=== PATIENT | female | born 1955 | race Caucasian/White ===

== ENCOUNTER → 2020-06-23 11:26 | Outpatient (CLI) | payer OTHER, SELFPAY ==
--- NOTE | ~2020-06-23 | MM_ITS ---
EXAMINATION: MM screening chastity BI w rock HISTORY: Screening TECHNIQUE: Craniocaudal and mediolateral oblique 3-D tomosynthesis images were obtained and synthetic 2-D images were generated. CAD analysis was submitted and interpreted. COMPARISON: Comparison to multiple prior studies sequentially, with oldest reviewed study dated 05/2018. BREAST PARENCHYMAL COMPOSITION: There are scattered areas of fibroglandular density. FINDINGS: There is no evidence of suspicious mass, calcification, or architectural distortion to sugg est malignancy in either breast. There has been no suspicious interval change. IMPRESSION: 1. No mammographic evidence of malignancy. 2. Recommend routine screening mammography in one year. BI-RADS Category 1: Negative Reviewed, dictated and finalized at location A.
== END ==
DX: Z12.31 Encounter for screening mammogram for malignant neoplasm of breast (principal)
CPT/HCPCS: 77063; 77067

== ENCOUNTER → 2021-07-13 13:13 | Outpatient (CLI) | payer OTHER, SELFPAY ==
--- NOTE | ~2021-07-13 | MM_ITS ---
EXAMINATION: MM screening chastity BI w rock HISTORY: Screening mammogram TECHNIQUE: Craniocaudal and mediolateral oblique 3-D tomosynthesis images were obtained and synthetic 2-D images were generated. CAD analysis was submitted and interpreted. COMPARISON: 06/2020, 03/18/2019, 02/24/2018 bilateral digital screening mammogram examinations BREAST PARENCHYMAL COMPOSITION: There are scattered areas of fibroglandular density. FINDINGS: There is no evidence of suspicious mass, calcification, or architectural distortion to sugg est malignancy in either breast. There has been no suspicious interval change. IMPRESSION: 1. No mammographic evidence of malignancy. 2. Recommend routine screening mammography in one year. BI-RADS Category 1: Negative Reviewed, dictated and finalized at location A.
== END ==
PROVIDERS: PCP Physician Assistant; Visit Provider Physician Assistant
DX: Z12.31 Encounter for screening mammogram for malignant neoplasm of breast (principal)
CPT/HCPCS: 77063; 77067

== ENCOUNTER → 2021-08-31 12:11 | Outpatient (CLI) | payer OTHER, SELFPAY ==
--- NOTE | ~2021-08-31 | DEXA_ITS ---
Bone Density Report Name: Lauren Baldwin Age: 65 Sex: Female Ethnicity: White Date of : 1955 Indication: osteopenia; height loss; postmenopausal Referring Provider: Nila, Kamini Study: Bone densitometry was performed. Exam Date: August 31, 2021 Accession number: [id number] Bone Density: Region BMD T-score Z-score Classification AP Spine (L1-L4) 0.861 -1.7 0.1 Osteopenia Femoral Neck (Left) 0.674 -1.6 -0.1 Osteopenia Total Hip (Left) 0.734 -1.7 -0.5 Osteopenia Femoral Neck (Right) 0.669 -1.6 -0.1 Osteopenia Total Hip (Right) 0.745 -1.6 -0.4 Osteopenia Total Hip Mean 0.740 -1.7 -0.5 Osteopenia World Health Organization criteria for BMD impression classify patients as: Normal (T-score at or above -1.0), Osteopenia (T-score between -1.0 and -2.5), or Osteoporosis (T-score at or below -2.5). 10-year Fracture Risk(1): Major Osteoporotic Fracture 9.0% Hip Fracture 1.0% Reported Risk Factors: [place] (), Neck BMD=0.669, BMI=28.8 (1) FRAX(R) Version 3.08. Fracture probability calculated for an untreated patient. Fracture probability may be lower if the patient has received treatment. Previous Exams: Region Exam Age BMD T-score BMD Change BMD Change Date g/cm2 vs Baseline vs Previous AP Spine(L1-L4) 08/31/2021 65 0.861 -1.7 0.041* 0.041* 02/24/2018 62 0.820 -2.1 Total Hip(Left) 08/31/2021 65 0.734 -1.7 -0.008 -0.008 02/24/2018 62 0.742 -1.6 Total Hip(Right) 08/31/2021 65 0.745 -1.6 0.018 0.018 02/24/2018 62 0.728 -1.8 *Denotes significance at 95% confidence level, LSC for AP Spine = 0.022 g/cm2, LSC for Total Hip = 0.027 g/cm2 Clinical Information Provided by Patient: Has used the following medications: Vitamin D, Calcium Patient maximum height was 63.0 Menopause Age: 46 Does not regularly consume dairy products Drinks caffeinated beverages Onset of menses at age 14 Number of children 2 Impression: The patient has low bone mass, based on the Total Spine T-score. The patient has an estimated ten-year risk of hip fracture of 1% and an estimated ten-year risk of major fracture of 9%, based on the WHO FRAX algorithm. No significant bone loss was observed. Discussion: BONE DENSITY IS LOW AT ONE OR MORE SKELETAL SITES. This patient's lowest T-score is low at one or more skeletal sites. It meets the World Health Organization's (WHO) criteria for ?low
== END ==
PROVIDERS: PCP Physician Assistant; Visit Provider Physician Assistant
DX: Z78.0 Asymptomatic menopausal state (principal); M85.89 Other specified disorders of bone density and structure, multiple sites
CPT/HCPCS: 77080

== ENCOUNTER 2022-07-17 14:52 | Outpatient (CLI) | payer MEDICARE, SELFPAY ==
--- NOTE | ~2022-07-17 | MM_ITS ---
EXAMINATION: MM screening chastity BI w rock HISTORY: Screening mammogram TECHNIQUE: Craniocaudal and mediolateral oblique 3-D tomosynthesis images were obtained and synthetic 2-D images were generated. CAD analysis was submitted and interpreted. COMPARISON: 07/09/2021, 06/2020, 03/18/2019. Bilateral screening mammogram examinations BREAST PARENCHYMAL COMPOSITION: There are scattered areas of fibroglandular density. FINDINGS: There is no evidence of suspicious mass, calcification, or architectural distortion to sugg est malignancy in either breast. There has been no suspicious interval change. IMPRESSION: 1. No mammographic evidence of malignancy. 2. Recommend routine screening mammography in one year. BI-RADS Category 1: Negative Reviewed, dictated and finalized at location A.
== END 2022-07-17 14:53 | disposition home or self-care (01) ==
PROVIDERS: PCP Physician Assistant; Visit Provider Obstetrics & Gynecology
DX: Z12.31 Encounter for screening mammogram for malignant neoplasm of breast (principal)
CPT/HCPCS: 77063; 77067

== ENCOUNTER 2023-06-06 00:36 | Day surgery (SDC) | payer MEDICARE, SELFPAY ==
[2023-05-21 13:46] VITALS: BMI 27.5
[2023-06-06 06:24] VITALS: BP 146/72; PULSE 88; RESP 19; TEMP 36.2; O2SAT 98
[2023-06-06] MEDS: LACTATED RINGERS 1,000 ML 150 ML IV CONT (06:36)
--- NOTE | 2023-06-06 07:27 | WPDANESEPPF ---
Anes - Initial Pre Proc Eval Procedure: Operation Date: 06/06/23 07:30 Proposed Procedures p Colonoscopy - Matthew Gusman MD Date/Time: 06/06/23 07:27 Surgeon: Matthew Gusman MD Pre Op Diagnosis: hx colon polyps Patient Data Age: 67 Gender: F Height: 1.6 m Weight: 65.7 kg Last Vital Signs Temp 97.2 F L 06/06/23 06:24 Pulse 88 06/06/23 06:24 Resp 19 06/06/23 06:24 BP 146/72 H 06/06/23 06:24 Pulse Ox 98 06/06/23 06:24 O2 Del Method Room Air 06/06/23 06:24 Allergies Allergy/AdvReac Type Severity Reaction Status Date / Time No Known Allergies Allergy Unverified 06/06/23 06:23 Home Medications Medication Instructions Recorded Confirmed Type amlodipine 2.5 mg tablet 2.5 mg PO DAILY 08/01/22 05/21/23 History aspirin 81 mg tablet,delayed 81 mg PO DAILY 08/01/22 05/21/23 History release (Adult Aspirin Regimen) cholecalciferol (vitamin D3) 50 50 mcg PO DAILY 08/01/22 05/21/23 History mcg (2,000 unit) capsule losartan 100 mg tablet 100 mg PO DAILY 08/01/22 05/21/23 History nitroglycerin 0.4 mg sublingual 0.4 mg sublingual Q5M PRN chest 08/01/22 05/21/23 History tablet pain rosuvastatin 10 mg tablet 10 mg PO DAILY 08/01/22 05/21/23 History valacyclovir 500 mg tablet 500 mg PO DAILY PRN open sores 08/01/22 05/21/23 History vitamins A,C,E-adiz-qdwyjc 4,296 1 cap PO BID 08/01/22 05/21/23 History mcg-226 mg-90 mg capsule (PreserVision AREDS) vitamins B6-F14-G-FA 25 mg-0.5 1 tablet PO MONTHLY 08/01/22 06/06/23 History mg-100 unit-0.8 mg tablet calcium citrate 200 mg (950 mg) 600 mg PO BID 05/21/23 05/21/23 History tablet coenzyme Q10 100 mg capsule 100 mg PO DAILY 05/21/23 05/21/23 History (CoQ-10) Patient hx anesthesia problems: none Family hx anesthesia problems: none Results Review: All pre-operative results and documents have been reviewed as part of the pre-operative evaluation. [facility] Past Medical History Medical History Cardiac arrhythmia Coronary artery disease High cholesterol Hypertension Surgical History Surgical History H/O cardiac catheterization History of heart artery stent History of tubal ligation Hx of removal of ovary Previous back surgery Family History Family History Other Acute myocardial infarction Heart disease Social History Social History (Updated 08/01/22 @ 08:01 by Ariela Mack MA) Smoking status: Never smoker Alcohol intake: never Substance use: never Substance use type: does not use Living arrangements: with family Occupation/Education: retired Gender identity (if verbalized by the patient): Female Sexual Orientation (if Verbalized by the Patient): Straight or Heterosexual Spiritual care concerns: No Anes - Eval Final PreProcedure Day of Procedure 06/06/23 07:27 Patient weight: normal Heart: regular rate and rhythm Lungs: clear to auscultation Airway: Mallampati scale class II Neurological: alert and oriented Last oral intake: >/= 8 hours ASA classification: III Emergent: no Anesthetic plan: proceed Anesthesia type and monitoring: general GIVS and standard monitoring Results Review: All pre-operative results and documents have been reviewed as part of the pre-operative evaluation. Informed Consent: The patient's anesthetic plan and its attendant risks and benefits were discussed with the patient/family/POA. Questions were solicited and answers provided to the satisfaction of the patient/family/POA.
--- NOTE | 2023-06-06 07:27 | PM.HPGS ---
History of Present Illness History of Present Illness Consent: Risks, benefits, and alternatives have been discussed and questions answered. Patient agrees to proceed with procedure. Chief complaint: hx colon polyps Narrative: Lauren Baldwin is a 67 year old female with colon polyp 5 years ago Review of Systems Constitutional: Constitutional: Denies headache(s) and Denies weakness Eyes: Eyes: Denies blurry vision ENT: Reports Normal hearing present, Denies headache(s) and Denies neck pain Cardiovascular: Cardiovascular: Denies chest pain and Denies dyspnea Respiratory: Respiratory: Denies dyspnea Gastrointestinal: Gastrointestinal: Reports no additional gastrointestinal complaints Genitourinary: Genitourinary: Denies dysuria Musculoskeletal: Musculoskeletal: Denies neck pain Integumentary/Breasts: Skin/Breast: Denies dry skin Neurologic: Reports Normal hearing present, Denies headache(s) and Denies weakness Psychiatric: Psychiatric: Denies anxiety Endocrine: Endocrine: Denies change in body appearance Hematologic/Lymphatic: Hematologic/Lymphatic: Denies easy bleeding Allergic/Immunologic: Allergic/Immunologic: Denies urticaria PMF Past Medical History Medical History (Updated 06/06/23 @ 07:28 by Matthew Gusman MD) Cardiac arrhythmia Colon polyp Coronary artery disease High cholesterol Hypertension Surgical History Surgical History H/O cardiac catheterization History of heart artery stent History of tubal ligation Hx of removal of ovary Previous back surgery Family History Family History Other Acute myocardial infarction Heart disease Social History Social History (Updated 08/01/22 @ 08:01 by Ariela Mack MA) Smoking status: Never smoker Alcohol intake: never Substance use: never Substance use type: does not use Living arrangements: with family Occupation/Education: retired Gender identity (if verbalized by the patient): Female Sexual Orientation (if Verbalized by the Patient): Straight or Heterosexual Spiritual care concerns: No Meds Home Medications and Allergies Home Medications Medication Instructions Recorded Confirmed Type amlodipine 2.5 mg tablet 2.5 mg PO DAILY 08/01/22 05/21/23 History aspirin 81 mg tablet,delayed 81 mg PO DAILY 08/01/22 05/21/23 History release (Adult Aspirin Regimen) cholecalciferol (vitamin D3) 50 50 mcg PO DAILY 08/01/22 05/21/23 History mcg (2,000 unit) capsule losartan 100 mg tablet 100 mg PO DAILY 08/01/22 05/21/23 History nitroglycerin 0.4 mg sublingual 0.4 mg sublingual Q5M PRN chest 08/01/22 05/21/23 History tablet pain rosuvastatin 10 mg tablet 10 mg PO DAILY 08/01/22 05/21/23 History valacyclovir 500 mg tablet 500 mg PO DAILY PRN open sores 08/01/22 05/21/23 History vitamins A,C,Q-olxe-ecnblq 4,296 1 cap PO BID 08/01/22 05/21/23 History mcg-226 mg-90 mg capsule (PreserVision AREDS) vitamins B6-L16-O-QW 25 mg-0.5 1 tablet PO MONTHLY 08/01/22 06/06/23 History mg-100 unit-0.8 mg tablet calcium citrate 200 mg (950 mg) 600 mg PO BID 05/21/23 05/21/23 History tablet coenzyme Q10 100 mg capsule 100 mg PO DAILY 05/21/23 05/21/23 History (CoQ-10) Allergies Allergy/AdvReac Type Severity Reaction Status Date / Time No Known Allergies Allergy Unverified 06/06/23 06:23 Vital Signs Vital Signs - 24 hr 06/06/23 06:24 Temperature 97.2 F L Pulse Rate 88 Respiratory Rate 19 Blood Pressure 146/72 H Pulse Oximetry 98 Oxygen Delivery Room Air Exam Const: General: comfortable and no acute distress HENMT: Face/Nose/Sinus: Normal nares present Eyes: General: appearance normal, both eyes and all related structures Neck: Neck: no JVD Resp: Auscultation: clear to auscultation bilaterally Cardio: Rate: regular rate Rhythm: regular rhythm GI: Inspection: non-
[2023-06-06 07:43] VITALS: BP 122/74; PULSE 77; RESP 16; O2SAT 98
[2023-06-06 07:53] VITALS: BP 121/72; PULSE 85; RESP 18; O2SAT 98
[2023-06-06 08:03] VITALS: BP 127/75; PULSE 80; RESP 18; O2SAT 98
== END 2023-06-06 08:10 | disposition home or self-care (01) ==
PROVIDERS: PCP Physician Assistant; Visit Provider Internal Medicine Gastroenterology
PROC: 0DJD8ZZ Inspection of Lower Intestinal Tract, Via Natural or Artificial Opening Endoscopic (ICD-10-PCS; CPT 45378; principal; 2023-06-06 07:30)
DX: Z12.11 Encounter for screening for malignant neoplasm of colon (principal); K64.8 Other hemorrhoids; Z86.010 Personal history of colon polyps; I25.10 Atherosclerotic heart disease of native coronary artery without angina pectoris; E78.00 Pure hypercholesterolemia, unspecified; I10 Essential (primary) hypertension; Z79.82 Long term (current) use of aspirin; Z95.5 Presence of coronary angioplasty implant and graft
CPT/HCPCS: G0105; J2704; J7120

== ENCOUNTER → 2023-09-01 09:50 | Outpatient (CLI) | payer MEDICARE, SELFPAY ==
--- NOTE | ~2023-09-01 | DEXA_ITS ---
Bone Density Report Name: JACOB STAHL Age: 67 Sex: Female Ethnicity: White Date of : 1955 Indication: osteopenia; prior fracture; postmenopausal Referring Provider: SWETA, CHENTE Study: Bone densitometry was performed. Exam Date: September 01, 2023 Accession number: [id number] Bone Density: Region BMD T-score Z-score Classification AP Spine (L1-L4) 0.883 -1.5 0.4 Osteopenia Femoral Neck (Left) 0.720 -1.2 0.5 Osteopenia Total Hip (Left) 0.739 -1.7 -0.3 Osteopenia Femoral Neck (Right) 0.680 -1.5 0.1 Osteopenia Total Hip (Right) 0.734 -1.7 -0.4 Osteopenia Total Hip Mean 0.737 -1.7 -0.4 Osteopenia World Health Organization criteria for BMD impression classify patients as: Normal (T-score at or above -1.0), Osteopenia (T-score between -1.0 and -2.5), or Osteoporosis (T-score at or below -2.5). 10-year Fracture Risk(1): Major Osteoporotic Fracture 15% Hip Fracture 1.8% Reported Risk Factors: [place] (), Neck BMD=0.680, BMI=28.1, previous fracture (1) FRAX(R) Version 3.08. Fracture probability calculated for an untreated patient. Fracture probability may be lower if the patient has received treatment. Previous Exams: Region Exam Age BMD T-score BMD Change BMD Change Date g/cm2 vs Baseline vs Previous AP Spine(L1-L4) 09/01/2023 67 0.883 -1.5 0.063* 0.022 08/31/2021 65 0.861 -1.7 0.041* 0.041* 02/24/2018 62 0.820 -2.1 Total Hip(Left) 09/01/2023 67 0.739 -1.7 -0.003 0.005 08/31/2021 65 0.734 -1.7 -0.008 -0.008 02/24/2018 62 0.742 -1.6 Total Hip(Right) 09/01/2023 67 0.734 -1.7 0.007 -0.011 08/31/2021 65 0.745 -1.6 0.018 0.018 02/24/2018 62 0.728 -1.8 *Denotes significance at 95% confidence level, LSC for AP Spine = 0.022 g/cm2, LSC for Total Hip = 0.027 g/cm2 Clinical Information Provided by Patient: Has had a low trauma fracture Has used the following medications: Vitamin D, Calcium Patient maximum height was 62 Menopause Age: 46 Does not regularly consume dairy products Drinks caffeinated beverages Onset of menses at age 14 Number of children 2 Impression: The patient has low bone mass, based on the Left Total Hip T-score. The patient has an estimated ten-year risk of hip fracture of 1.8% and an estimated ten-year risk of major fracture of 15%, based on the WHO FRAX alg
--- NOTE | ~2023-09-01 | MM_ITS ---
EXAMINATION: MM screening [facility] BI w rock HISTORY: Screening mammogram TECHNIQUE: Craniocaudal and mediolateral oblique 3-D tomosynthesis images were obtained and synthetic 2-D images were generated. CAD analysis was submitted and interpreted. COMPARISON: 07/17/2022, 07/13/2021, 06/23/2020 BREAST PARENCHYMAL COMPOSITION: There are scattered areas of fibroglandular density. FINDINGS: No suspicious mass, calcification, or architectural distortion are identified in either comfort ast to suggest malignancy. There has been no suspicious interval change. IMPRESSION: 1. No mammographic evidence of malignancy. 2. Recommend routine screening mammography in one year. BI-RADS Category 1: Negative Reviewed, dictated and finalized at location A. GER ASSET
== END ==
PROVIDERS: PCP Physician Assistant; Visit Provider Physician Assistant
DX: Z12.31 Encounter for screening mammogram for malignant neoplasm of breast (principal); M85.89 Other specified disorders of bone density and structure, multiple sites
CPT/HCPCS: 77063; 77067; 77080

== ENCOUNTER 2024-03-23 09:25 | Outpatient (CLI) | payer MEDICARE, SELFPAY ==
--- NOTE | ~2024-03-23 | XR_ITS ---
Clinical Indication: Abnormal breathing PA and lateral views of the chest: Comparison: None Findings: The lungs are clear, without evidence of focal consolidation or pleural effusion. Cardiome diastinal silhouette is within normal limits. Bones and soft tissues are unremarkable. Impression: Normal chest. Reviewed, dictated and finalized at location . Impression: Normal chest.
--- NOTE | ~2024-03-23 | XR_ITS ---
EXAMINATION: XR UGI wo kub DATE: 03/23/2024 10:07 INDICATION: Indigestion. TECHNIQUE: The patient drank thick barium, gas-producing crystals, and thin barium. Fluoroscopy of th e esophagus, stomach, and proximal small bowel was performed. Fluoroscopy exposure time was 0.9 minut es. The total number of images was 285. Total dose-area product was 3.476 Gy-cm^2. COMPARISON: None. FINDINGS: There is no mass or stricture of the esophagus. Esophageal motility is normal. There is no hiatal hernia. There was no gastroesophageal reflux with provocative maneuvers. The stomach and proxi mal small bowel show normal folding patterns. IMPRESSION: 1. Normal upper gastrointestinal series. Reviewed, dictated and finalized at location A.
== END 2024-03-23 09:26 | disposition home or self-care (01) ==
PROVIDERS: PCP Physician Assistant; Visit Provider Physician Assistant
DX: K30 Functional dyspepsia (principal); R06.9 Unspecified abnormalities of breathing
CPT/HCPCS: 71046; 74240

== ENCOUNTER 2024-10-05 08:23 | Outpatient (CLI) | payer MEDICARE, SELFPAY ==
--- NOTE | ~2024-10-05 | MM_ITS ---
EXAMINATION: MM screening chastity BI w rock HISTORY: Screening TECHNIQUE: Craniocaudal and mediolateral oblique 3-D tomosynthesis images were obtained and synthetic 2-D images were generated. CAD analysis was submitted and interpreted. COMPARISON: Comparison to multiple prior studies sequentially, with oldest reviewed study dated 05/2018. BREAST PARENCHYMAL COMPOSITION: Not dense: There are scattered areas of fibroglandular density. FINDINGS: There is no evidence of suspicious mass, calcification, or architectural distortion to sugg est malignancy in either breast. There has been no suspicious interval change. IMPRESSION: 1. No mammographic evidence of malignancy. 2. Recommend routine screening mammography in one year. BI-RADS Category 1: Negative Reviewed, dictated and finalized at location B. [employer]
== END 2024-10-05 08:24 | disposition home or self-care (01) ==
LOC: ANHIMG 08:23
PROVIDERS: PCP Physician Assistant; Visit Provider Physician Assistant
DX: Z12.31 Encounter for screening mammogram for malignant neoplasm of breast (principal)
CPT/HCPCS: 77063; 77067

== ENCOUNTER 2025-10-11 07:17 | Outpatient (CLI) | payer MEDICARE, SELFPAY ==
--- NOTE | ~2025-10-11 | MM_ITS ---
EXAMINATION: MM screening chastity BI w rock HISTORY: Screening. TECHNIQUE: Craniocaudal and mediolateral oblique 3-D tomosynthesis images were obtained and synthetic 2-D images were generated. CAD analysis was submitted and interpreted. COMPARISON: 2023, 2022, and 2021. BREAST PARENCHYMAL COMPOSITION: Not Dense: There are scattered areas of fibroglandular tissue FINDINGS: No suspicious masses are seen. There are no suspicious calcifications. No unexplained architectural distortion is seen. There are no skin or nipple abnormalities identified. There is no adenopathy seen on the images submitted. IMPRESSION: No mammographic evidence to suggest malignancy is seen. The patient may return to screening mammography as per ACR guidelines. BI-RADS 1 - Negative. Reviewed, dictated and finalized at location C. NISTRATIVE TECHNICIAN
--- OUTSIDE RECORDS SUMMARY | 2025-10-11 07:21 | XMS_ITS | Continuity of Care Document ---
Author Organization [place] - [place], S[facility] [place] Address [address] [place] [address] Care Team Providers Care Fugitive Detective Name Role Phone CHENTE SOL Primary Care Provider Unavailab le Assessment Encounter Date Assessment Date Assessment LastModified by Organization Details LastModified Time 08/29/2025 08/29/2025 06/06/2023 colonoscopy showed internal hemorrhoids repeat in 5 years August of 2023 DEXA scan due 2024 eye exam : UTD dental exam: every 6 months mammogram sep 2024 iron studies normal Not available 08/29/2025 10:42:13 Plan of Treatment Reminders Order Date Submit Date Provider Last Modified By Organization Details Last Modified Time Details Appointments ANY 15 2025 09:15A M ARTI Gloria Not available Not available Not available Lab HbA1c (hemoglob in A1c), blood 2024 026 [facility], [address], [place], [address], 08/29/2025 10:39:19 CBC w/ auto diff 2024 026 [facility], [place], [address], 08/29/2025 10:39:19 hepatic function panel, serum 2024 026 [facility], [address], [place], [address], 08/29/2025 10:39:19 BMP, serum or plasma [address], [address], [place], [address], 08/29/2025 10:39:19 TSH + free T4, serum 2024 026 [facility], [address], [place], [address], 08/29/2025 10:39:19 lipid panel, serum 2024 026 [facility], [address], [place], [address], 08/29/2025 10:39:20 Referral None recorded. Procedures None recorded. Surgeries None recorded. Imaging None recorded. Medication Orders None recorded. Patient TargetsNo targets recorded. Patient InstructionsNo instructions recorded. Reason for Referral None Reported. Results Created Date Observation Date Name Description Value Unit Range Abnormal Flag Note LastModifiedBy Organization Detail LastModifiedTime 08/15/2008/16/2025 IRON, TIBC AND SHANEKA TIN PANEL iron, total 62 mcg/d L 45-160 normal Not Available [address] [address] [place], [address], 08/16/2025 07:32:56 08/15/2008/16/2025 IRON, TIBC AND SHANEKA TIN PANEL iron binding capacity 343 mcg/d L_(ca lc) 250-45 0 normal Not Available [address], [address], 08/16/2025 07:32:56 08/15/2008/16/2025 IRON, TIBC AND SHANEKA TIN PANEL % saturation 18 %_(ca lc) 16-45 normal Not Available [facility] [address] [address] [place], [address], 08/16/2025 07:32:56 08/15/2008/16/2025 IRON, TIBC AND SHANEKA TIN PANEL ferritin 37 NG/mL 16-288 normal Not Available [address], [address], 08/16/2025 07:32:56 08/15/2008/16/2025 LIPID PANEL WITH RATIO S cholesterol, total 155 mg/dL <200 normal Not Available [address], [address], 08/16/2025 07:32:56 08/15/2008/16/2025 LIPID PANEL WITH RATIO S HDL cholesterol 56 mg/dL > or = 50 normal Not Available [address], [address], 08/16/2025 07:32:56 08/15/2008/16/2025 LIPID PANEL WITH RATIO S triglyceride s 145 mg/dL <150 normal Not Available [address], [address], 08/16/2025 07:32:56 08/15/2008/16/2025 LIPID PANEL WITH RATIO S LDL-choleste rol 76 mg/dL _(jake c) normal Refer ence range : <100 Manav able range <100 mg/dL for prima ry preve ntion ; <70 mg/dL for patie nts with CHD or diabe tic patie nts with > or = 2 CHD risk facto rs. LDL-C is now calcu lated using the Linda n-Hop kins calcu morenita n, which is a valid ated novel leon schreiber than the Fried lakhwinder equat ion in the estim ation of LDL-C . Linda gallardo SS et al. ROCÍO. 2013; 310(1 9): 2061- 2068 (http ://ed ucati on.Qu estDi deannaos tics. com/f aq/FA Q164) Not Available [address], [address], 08/16/2025 07:32:56 08/15/2008/16/2025 LIPID PANEL WITH RATIO S chol/HDLC ratio 2.8 (calc ) <5.0 normal Not Available [address], [address], 08/16/2025 07:32:56 08/15/2008/16/2025 LIPID PANEL WITH RATIO S LDL/HDL ratio 1.4 (calc ) Below avera ge Risk: <2.34 Venus ge Risk: 2.35- 4.12 Moder ate Risk: 4.13- 5.56 High Risk: >5.57 Not Available [address], [address], 08/16/2025 07:32:56 08/15/2008/16/2025 LIPID PANEL WITH RATIO S non HDL cholesterol 99 mg/dL _(jake c) <130 normal For patie nts with diabe wenceslao plus 1 major ASCVD risk facto r, treat ing to a non-H DL-C goal of <100 mg/dL (LDL- C of <70 mg/dL ) is shannani janak john c optio n. Not Available [address], [address], 08/16/2025 07:32:56 08/15/2008/16/2025 BASIC METAB OLIC PANEL glucose 85 mg/dL 65-99 normal Fasti ng refer ence inter samson Not Available [address] [place], [address], 08/16/2025 07:32:57 08/15/2008/16/2025 BASIC METAB OLIC PANEL urea nitrogen (BUN) 15 mg/dL 7-25 normal Not Available [address] [place], [address], 08/16/2025 07:32:57 08/15/2008/16/2025 BASIC METAB OLIC PANEL creatinine 0.82 mg/dL 0.50-1 .05 normal Not Available [address], [address], 08/16/2025 07:32:57 08/15/2008/16/2025 BASIC METAB OLIC PANEL eGFR 78 mL/mi n/1.7 3m2 > or = 60 normal Not Available [address], [address], 08/16/2025 07:32:57 08/15/2008/16/2025 BASIC METAB OLIC PANEL BUN/creatini ne ratio SEE NOTE: (calc ) 6-22 Not Repor concha: BUN and Creat inine are withi n refer ence range . Not Available [address], [address], 08/16/2025 07:32:57 08/15/2008/16/2025 BASIC METAB OLIC PANEL sodium 137 mmol/ L 135-14 6 normal Not Available [address], [address], 08/16/2025 07:32:57 08/15/2008/16/2025 BASIC METAB OLIC PANEL potassium 4.8 mmol/ L 3.5-5. 3 normal Not Available [address], [address], 08/16/2025 07:32:57 08/15/2008/16/2025 BASIC METAB OLIC PANEL chloride 102 mmol/ L 98-110 normal Not Available [address], [address], 08/16/2025 07:32:57 08/15/2008/16/2025 BASIC METAB OLIC PANEL carbon dioxide 31 mmol/ L 20-32 normal Not Available [address], [address], 08/16/2025 07:32:57 08/15/2008/16/2025 BASIC METAB OLIC PANEL calcium 9.7 mg/dL 8.6-10 .4 normal Not Available [address], [address], 08/16/2025 07:32:57 08/15/2008/16/2025 HEPAT IC FUNCT ION PANEL protein, total 6.9 g/dL 6.1-8. 1 normal Not Available [address], [address], 08/16/2025 07:32:57 08/15/2008/16/2025 HEPAT IC FUNCT ION PANEL albumin 4.1 g/dL 3.6-5. 1 normal Not Available [address], [address], 08/16/2025 07:32:57 08/15/2008/16/2025 HEPAT IC FUNCT ION PANEL globulin 2.8 g/dL_ (calc ) 1.9-3. 7 normal Not Available [address], [address], 08/16/2025 07:32:57 08/15/2008/16/2025 HEPAT IC FUNCT ION PANEL albumin/glob ulin ratio 1.5 (calc ) 1.0-2. 5 normal Not Available [address], [address], 08/16/2025 07:32:57 08/15/2008/16/2025 HEPAT IC FUNCT ION PANEL bilirubin, total 0.4 mg/dL 0.2-1. 2 normal Not Available [address], [address], 08/16/2025 07:32:57 08/15/2008/16/2025 HEPAT IC FUNCT ION PANEL bilirubin, direct 0.1 mg/dL < or = 0.2 normal Not Available [address], [address], 08/16/2025 07:32:57 08/15/2008/16/2025 HEPAT IC FUNCT ION PANEL bilirubin, indirect 0.3 mg/dL _(jake c) 0.2-1. 2 normal Not Available [address], [address], 08/16/2025 07:32:57 08/15/2008/16/2025 HEPAT IC FUNCT ION PANEL alkaline phosphatase 94 U/L 37-153 normal Not Available [facility] [employer] [address], [address], 08/16/2025 07:32:57 08/15/2008/16/2025 HEPAT IC FUNCT ION PANEL AST 18 U/L 10-35 normal Not Available [address], [address], 08/16/2025 07:32:57 08/15/2008/16/2025 HEPAT IC FUNCT ION PANEL ALT 25 U/L 6-29 normal Not Available [address], [address], 08/16/2025 07:32:57 08/15/2008/16/2025 CBC (INCL UDES DIFF/ PLT) white blood cell count 6.3 thous and/u L 3.8-10 .8 normal Not Available [address], [address], 08/16/2025 07:32:58 08/15/2008/16/2025 CBC (INCL UDES DIFF/ PLT) red blood cell count 5.08 sampson on/uL 3.80-5 .10 normal Not Available [address], [address], 08/16/2025 07:32:58 08/15/2008/16/2025 CBC (INCL UDES DIFF/ PLT) hemoglobin 12.9 g/dL 11.7-1 5.5 normal Not Available [address], [address], 08/16/2025 07:32:58 08/15/2008/16/2025 CBC (INCL UDES DIFF/ PLT) hematocrit 42.6 % 35.0-4 5.0 normal Not Available [facility] [address], [address], 08/16/2025 07:32:58 08/15/2008/16/2025 CBC (INCL UDES DIFF/ PLT) MCV 83.9 fL 80.0-1 00.0 normal Not Available [address], [address], 08/16/2025 07:32:58 08/15/2008/16/2025 CBC (INCL UDES DIFF/ PLT) MCH 25.4 pg 27.0-3 3.0 low Not Available [address], [address], 08/16/2025 07:32:58 08/15/2008/16/2025 CBC (INCL UDES DIFF/ PLT) MCHC 30.3 g/dL 32.0-3 6.0 low For adult s, a sligh t decre ase in the calcu lated MCHC value (in the range of 30 to 32 g/dL) is most likel y not clini trish lamari marco antonio t; sophia er, it shoul d be inter prete d with cauti on in [facility] [place] with other red cell milagros eters and the patie nt's clini jake condi tion. Not Available [facility] [address], [address], 08/16/2025 07:32:58 08/15/2008/16/2025 CBC (INCL UDES DIFF/ PLT) RDW 13.4 % 11.0-1 5.0 normal Not Available [address], [address], 08/16/2025 07:32:58 08/15/2008/16/2025 CBC (INCL UDES DIFF/ PLT) platelet count 250 thous and/u L 140-40 0 normal Not Available [address], [address], 08/16/2025 07:32:58 08/15/2008/16/2025 CBC (INCL UDES DIFF/ PLT) MPV 12.1 fL 7.5-12 .5 normal Not Available [address], [address], 08/16/2025 07:32:58 08/15/2008/16/2025 CBC (INCL UDES DIFF/ PLT) absolute neutrophils 3648 cells /uL 1500-7 800 normal Not Available [address], [address], 08/16/2025 07:32:58 08/15/2008/16/2025 CBC (INCL UDES DIFF/ PLT) absolute lymphocytes 1884 cells /uL 850-39 00 normal Not Available [address], [address], 08/16/2025 07:32:58 08/15/2008/16/2025 CBC (INCL UDES DIFF/ PLT) absolute monocytes 473 cells /uL 200-95 0 normal Not Available [address], [address], 08/16/2025 07:32:58 08/15/2008/16/2025 CBC (INCL UDES DIFF/ PLT) absolute eosinophils 183 cells /uL 15-500 normal Not Available [address], [address], 08/16/2025 07:32:58 08/15/2008/16/2025 CBC (INCL UDES DIFF/ PLT) absolute basophils 113 cells /uL 0-200 normal Not Available [address], [address], 08/16/2025 07:32:58 08/15/2008/16/2025 CBC (INCL UDES DIFF/ PLT) neutrophils 57.9 % normal Not Available [facility] [address], [address], 08/16/2025 07:32:58 08/15/2008/16/2025 CBC (INCL UDES DIFF/ PLT) lymphocytes 29.9 % normal Not Available [facility] [address], [address], 08/16/2025 07:32:58 08/15/2008/16/2025 CBC (INCL UDES DIFF/ PLT) monocytes 7.5 % normal Not Available [address], [address], 08/16/2025 07:32:58 08/15/2008/16/2025 CBC (INCL UDES DIFF/ PLT) eosinophils 2.9 % normal Not Available [address], [address], 08/16/2025 07:32:58 08/15/2008/16/2025 CBC (INCL UDES DIFF/ PLT) basophils 1.8 % normal Not Available [address], [address], 08/16/2025 07:32:58 08/15/2008/16/2025 HEMOG LOBIN A1C hemoglobin A1C 6.0 %_of_ total _HGB <5.7 high For someo ne witho ut known diabe wenceslao, a hemog lobin A1c value betwe en 5.7% and 6.4% is consi stent with predi abete s and shoul d be confi rmed with a follo w-up test. For someo ne with known diabe wenceslao, a value <7% indic ates that their diabe wenceslao is well contr olled . A1c targe ts shoul d be indiv idual ized based on durat ion of diabe wenceslao, age, comor bid condi tions , and other consi derat ions. This assay resul t is consi stent with an incre ased risk of diabe wenceslao. Curre ntly, no conse nsus exist s regar ding use of hemog lobin A1c for diagn osis of diabe wenceslao for child jennifer. Not Available Phone [facility] [address] [place], [address], 08/16/2025 07:32:58 Result Notes None recorded. Problems Name Problem SNOMED Code Status Onset Date Resolution Date Notes Provider Name and Address Organization Details Recorded Time Body mass index 25-29 - overweight 813308358 Active 2023 Arlene Ventura MA [facility], [place] - SI 4 10:03:12 Benign essential hypertension 6260385 Active 2023 ARTI Gloria Attn: Daphne alexander,[address] [place], [address], [facility] SI 4 14:53:32 Coronary atherosclerosi s 220992062 Active 2023 ARTI Gloria Attn: Daphne alexander,[address] [facility], [place], [address], [facility] - SI 4 14:53:34 History of placement of stent for coronary artery disease 932541711 Active 2023 ARTI Gloria Attn: Daphne alexander,[address] [facility], [place], [address], [facility] - SI 4 14:53:36 Hyperlipidemia 96670473 Active 2023 ARTI Gloria Attn: Daphne alexander,[address] [facility], [place], [address], [place] - [facility] 4 14:53:37 Blood glucose outside reference range 635549771 Active 2023 ARTI Gloria Attn: Daphne alexander,[address] [facility], [place], [address], [place] [facility] 4 14:53:38 Overweight 214419049 Active 2023 ARTI Gloria Attn: Daphne alexander,[address] [facility], [place], [address], [place] [facility] 4 14:53:40 Long-term drug therapy Active 2023 ARTI Gloria Attn: Daphne alexander,[address] [facility], [place], [address], [place] - [facility] 4 14:53:52 Overweight in adulthood with body mass index of 25 or more but less than 30 092788282 Active 2024 ARTI Gloria Attn: Daphne alexander,[address] [facility], [place], [address], [place] - [facility] 5 23:18:12 Microcytosis 158162341 Active 2024 ARTI Gloria Attn: Charoisabel alexander,[address] [facility], [place], [address], [place] - [facility] 5 13:15:08 Prediabetes 743086617 Active 2024 ARTI Gloria Attn: Charoisabel alexander,[address] [facility], [place], [address], [place] - [facility] 5 21:52:34 Problem Notes None recorded. Procedures Surgical History Date Name Laterality Status Provider Name and Address Organization Details Recorded Time Back Surgery completed Arlene Ventura MA [facility] 02/19/2024 16:17:20 excision of bilateral fallopian tubes and ovaries completed Arlene Ventura MA [facility] 02/19/2024 16:17:40 Imaging Results None recorded. Procedure Notes None recorded. Medical Equipment None Reported. Allergies Allergen ID Allergen Name Allergen Category Reaction Reaction Severity Criticality Documentation Date Start Date Code Code System Note Provider Name and Address Organization Details Recorded Time 20300321 clarithro mycin medicatio n nausea vomiting Not available Not available Not available 08/09/2025 RxNorm React ion: Nause a, Vomit ing, Not Available jimmy - External Data Service - prod 16:59:50 Medications Name Sig Start Date Stop Date Status Note LastModified by Organization Details LastModified Time azithromyci n 250 mg tablet TAKE 2 TABLETS BY MOUTH ON DAY 1, AND THEN TAKE 1 TABLET BY MOUTH ONCE A DAY ON DAY 2 THROUGH DAY 5 02/18 completed Not Available Not Available Not Available benzonatate 200 mg capsule TAKE 1 CAPSULE BY MOUTH THREE TIMES DAILY 02/18 completed Not Available Not Available Not Available prednisone 20 mg tablet TAKE 2 TABLETS BY MOUTH ONCE DAILY FOR 5 DAYS 02/18 completed Not Available Not Available Not Available amlodipine 2.5 mg tablet TAKE 1 TABLET BY MOUTH ONCE DAILY active Not Available Not Available No t Available valacyclovi r 500 mg tablet TAKE 2 TABLETS BY MOUTH EVERY 12 HOURS NEEDED FOR 1 DAY active Not Available Not Available No t Available ciprofloxac in 500 mg tablet TAKE 1 TABLET BY MOUTH EVERY 12 HOURS 02/18 completed Not Available Not Available Not Available triamcinolo ne acetonide 0.1 % topical cream APPLY TO ITCHY SPOTS TWICE DAILY NEEDED active Not Available Not Available No t Available meclizine 25 mg tablet TAKE 1 TABLET BY MOUTH THREE TIMES DAILY NEEDED FOR VERTIGO active Not Available Not Available No t Available nitroglycer in 0.4 mg sublingual tablet DISSOLVE ONE TABLET UNDER THE TONGUE EVERY 5 MINUTES NEEDED FOR CHEST PAIN. DO NOT EXCEED A TOTAL OF 3 DOSES IN 15 MINUTES 02/18 completed Not Available Not Available Not Available codeine 10 mg-guaifene sin 100 mg/5 mL oral liquid TAKE 10 ML BY MOUTH EVERY 6 TO 8 HOURS NEEDED 02/18 completed Not Available Not Available Not Available losartan 100 mg tablet TAKE 1 TABLET BY MOUTH ONCE DAILY active Not Available Not Available No t Available metronidazo le 0.75 % topical gel APPLY TO FACE ONCE DAILY 02/18 completed Not Available Not Available Not Available doxycycline hyclate 100 mg tablet Take 1 tablet by oral route as needed for 90 days. active Not Available Not Available No t Available Asprin Ec Low Dose 81 mg tablet,ayde yed release Take 1 tablet every day by oral route. active Not Available Not Available No t Available rosuvastati n 10 mg tablet Take 1 mg every day by oral route for 90 days. active Not Available Not Available No t Available nitrofurant oin monohydrate /macrocryst als 100 mg capsule TAKE 1 CAPSULE BY MOUTH EVERY 12 HOURS 02/18 completed Not Available Not Available Not Available Vitamin D active otc Not Available Not Marta ilable Not Available Vitals Date Recorded Systolic And Diastolic Provider Name and Address Organization Details Last Updated DateTime 08/29/2025 140/80 mm[Hg] ARTI Gloria Attn: Accounting,[address] [place], [address], [facility] 08/29/2025 10:49:37 Date Recorded Body height Body mass index (BMI) Body weight Respiratory rate Oxygen saturation Heart rate Systolic And Diastolic Provider Name and Address Organization Details Last Updated DateTime 157.48 cm 27.6 kg/m2 59729.4 5 g 20 /min 98 % 78 /min 126/78 mm[Hg] Arlene Ventura MA [facility] 5 10:15:59 Social History Question Answer Notes LastModified by Organizat ion Details LastModified Time Tobacco Smoking Status Never Smoker Arlene Ventura MA null, [facility] 02/19/2024 12:46:39 Do You Have An Advance Directive? Yes Information not available 02/19/2024 Are You Blind Or Do You Have Difficulty Seeing? No Information not available 02/19/2024 What Is Your Level Of Caffeine Consumption? Occasional Information not available 02/19/2024 In The 14 Days Before Symptom Onset, Have You Had Close Contact With A Laboratory-confir med COVID-19 While That Case Was Ill? No Information not available 02/18/2024 In The 14 Days Before Symptom Onset, Have You Had Close Contact With A Person Who Is Under Investigation For COVID-19 While That Person Was Ill? No Information not available 02/18/2024 Have You Been To An Area Known To Be High Risk For COVID-19? No Information not available 02/18/2024 Are You Deaf Or Do You Have Serious Difficulty Hearing? Yes Tinnitus Information not available 02/19/2024 What Type Of Diet Are You Following? REGULAR Information not available 02/19/2024 Are There Any Guns Present In Your Home? No Information not available 02/18/2024 What Was The Date Of Your Most Recent Tobacco Screening? 08/29/2025 Information not available 08/29/2025 What Is Your Relationship Status? Information not available 02/19/2024 Do You Use Your Seat Belt Or Car Seat Routinely? Yes Information not available 02/18/2024 Do You Have Smoke And Carbon Monoxide Detectors In Your Home? No Information not available 02/18/2024 Do You Use Sunscreen Routinely? No Information not available 02/18/2024 Has Tobacco Cessation Counseling Been Provided? Yes Information not available 02/18/2024 On What Date Was Tobacco Cessation Counseling Provided? 08/29/2025 Information not available 08/29/2025 Sex: Female Functional Status Question Answer Note LastModified by Organizat ion Details LastModified Time Do you use any illicit or recreational drugs? No Information not available 02/19/2024 Do you or have you ever used any other forms of tobacco or nicotine? No Information not available 02/19/2024 What is your level of alcohol consumption? None Information not available 02/19/2024 Are you currently employed? No Information not available 02/18/2025 Are you able to care for yourself independently? Yes Information not available 02/18/2024 What is your exercise level? None Information not available 02/19/2024 Mental Status None recorded. Family History Relationship Description Onset Age of this Age Resolved Age Notes LastModified by Organization Details LastModified Time Mother Dementia [email or web address] Not availabl e 02/19/2024 16:17:52 Mother Diabetes mellitus [email or web address] Not available 2023 16:17:56 Mother Heart disease [email or web address] Not available 2023 16:18:04 Mother Hypertensive disorder [email or web address] Not available 2023 16:18:16 Father Heart disease [email or web address] Not available 2023 16:18:04 Father Hypertensive disorder tcarterma Not available 2023 16:18:16 Medical History Condition Response Coronary Artery Disease N Other N High Blood Pressure Y Atrial Fibrillation N Kidney or Bladder Problems N Thyroid Problems N GI Problems N Depression N COPD N Blood Clots N Skin Problems N Anemia N Heart Attack ([place]) N Anxiety Disorder N Diabetes N Muscle, Joint, or Bone Problems N Seizures/Epilepsy N Acid Reflux (GERD) N Cancer N Stroke N Asthma N Allergies N High Cholesterol Y Hepatitis N Liver Disease N Headaches N Heart Failure N Osteoporosis N Gynecological History Statement/Question Response Menses Monthly N Current Control Method None Obstetrics History GPAL:G 2 P 2 0 0 2 Type Value Full Term 2 Induced 0 Spontaneous 0 Premature 0 Living 2 Total 2 Immunizations Vaccine Type Date Status Note Provider Nam e and Address Organization Details Recorded Time Influenza, split virus, quadrivalent, PF 7 completed Not Available [facility] 08/29/2025 10:07:35 zoster live 7 completed Not Available [facility] 08/29/2025 10:07:35 zoster recombinant 9 completed Not Available [facility] 08/29/2025 10:07:35 zoster recombinant 0 completed Not Available [facility] 08/29/2025 10:07:35 Influenza, recombinant, quadrivalent, PF 0 completed Not Available [facility] 08/29/2025 10:07:35 COVID-19, mRNA, LNP-S, PF, 30 mcg/0.3 mL dose 1 completed Not Available [facility] 08/29/2025 10:07:35 COVID-19, mRNA, LNP-S, PF, 30 mcg/0.3 mL dose 1 completed Not Available [facility] 08/29/2025 10:07:35 Influenza, split virus, quadrivalent, PF 1 completed Not Available [facility] 08/29/2025 10:07:35 COVID-19, mRNA, LNP-S, PF, 30 mcg/0.3 mL dose 1 completed Not Available [facility] 08/29/2025 10:07:35 Influenza, high-dose, quadrivalent, PF 2 completed Not Available [facility] 08/29/2025 10:07:35 Pneumococcal conjugate PCV20, polysaccharide [id number] conjugate, adjuvant, PF 2 completed Not Available [facility] 08/29/2025 10:07:35 Influenza, high-dose, quadrivalent, PF 3 completed Not Available [facility] 08/29/2025 10:07:35 RSV, recombinant, protein subunit RSVpreF, adjuvant reconstituted, 0.5 mL, PF 3 completed Not Available [facility] 08/29/2025 10:07:35 Past Encounters Encounter ID Performer Location Encounter Start Date Encounter Closed Date Diagnosis/Indication Diagnosis SNOMED-CT Code Diagnosis ICD10 Code Diagnosis IMO Codes Diagnosis Note [id number] ARTI Gloria [facility] [address] [place] [address] 08/29/2025 10:06:29 08/29/2025 11:06:02 Benign essential hypertension 6792272 I10 stable on amlodipine 2.5mg daily and losartan 100mg daily. Coronary atherosclerosis 587179229 I25.10 stable. asymptomat ic. following with cardiology annually. Dr. Chavira at [facility]. usually late summer History of placement of stent for coronary artery disease 127739715 Z95.5 hx of stent placement. Hyperlipidemia 66387249 E78.5 lipids panel very good ranges. stable on rosuvastat in therapy. repeat fasting labs in january Long-term drug therapy 440056854 Z79.899 routine labs ordered for january 2025 Overweight in adulthood with body mass index of 25 or more but less than 30 668423146 E66.3 Z68.27 5033590245 Prediabetes 476732889 R7 3.03 347906 6%. continue dietary focus to manage carbs and sugars and exercise. Adult [facility] th examination 702147263 Z00.00 8413113 annual wellness completed Health Concerns Section Related Observation LastModified by Organization Detai ls LastModified Time None Recorded Concern Status LastModified by Organization Details LastModified Time None Recorded Payers Encounter Date Sequence Insurance Name Policy Number Policy Whitehead Covered Member ID Whitehead Member ID Guarantor Name 08/29/2025 1 [employer] (MEDICARE REPLACEMENT/ ADVANTAGE - PPO) [id number] Lauren Baldwin [id number] Lauren Baldwin Notes Date Note Type Note Provider Name and Address Organization Details Recorded Time 08/29/2025 text/html Coronary Artery Disease F/UReported by Patientpt is stable and following with cardiology. asymptomatic. HyperlipidemiaRepor concha by Patientstable on rosuvastatin 10mg daily. HypertensionReporte d by Patientstable on amlodipine 2.5mg daily and losartan 100mg daily. . Iron studies are all stable. Cholesterol panel is also in range. Basic metabolic panel normal, liver function normal CBC blood counts show just a slight drop in the MCH and MCHC. Hemoglobin A1c 6% indicating prediabetes prediabetes- pt is managing with diet and exercise. 6% on recent labs ARTI Gloria Attn: Accounting,[address], [place], [address], [facility] 09/16/2025 23:18:40 OBGyn Episode No OBEpisode recorded.
--- OUTSIDE RECORDS SUMMARY | 2025-10-11 07:21 | XMS_ITS | Clinical Summary ---
Author Organization [facility] Address [address] [place] [address] Care Team Providers Care Smocker Name Role Phone Irene Dotson Primary Care Pr ovider Allergies Active Allergy Reactions Criticality Noted Date Comments Clarithromycin Nausea only,Vomiting Reaction: Nausea, Vomiting, Medications meclizine (ANTIVERT) 25 mg tablet take 1 tablet (25MG) by oral route 3 times every day as needed 60 2 2 Active Additional Information Patient taking differently: 12.5 mg oral 3 times daily PRN, Reported on 01/15/2018 valACYclovir (VALTREX) 500 mg tablet TAKE TWO CAPLETS BY MOUTH EVERY 12 HOURS FOR 1 DAY 36 2 1 Active Additional Information Patient taking differently:500 mgoral Daily PRN, Reported on 01/13/2018 fluticasone (FLONASE) 50 mcg/actuation nasal spray spray 1 - 2 spray by Intranasal route every day in each nostril 1 Bottle 0 7 Active Additional Information Patient taking differently: 2 spray each nostril Daily PRN, Reported on 01/13/2018 calcium carbonate-vitam in D3 (CALCIUM 600 + D,3,) 1500 mg (600 mg elemental) -200 units per tablet Take according to acaa-dvi-bdnnjho package directions 0 0 9 Active Additional Information Patient taking differently: 1 tablet oral Daily, Indications: 600 mg, Reported on 01/15/2018 amLODIPine (NORVASC) 2.5 mg tablet Take 2.5 mg by mouth daily 3 9 Active vit C,U-Zd-odzth-giovanna tein-zeaxan [id number] zj-bjul-yz-mg capsule Take 1 capsule by mouth 2 (two) times a day Active Active Problems Problem Noted Date Diagnosed Date Abnormal stress test 08/06/2019 Accelerating angina 08/06/2019 Essential hypertension 08/06/2019 Family history of premature coronary artery dise ase 08/06/2019 Mitral valve prolapse 08/06/2019 History of colon polyps 12/29/2017 Overview (12/29/2017): Added automatically from request for surgery [id number] Benign hypertension 03/05/2014 Overview (01/22/2017): BENIGN HYPERTENSION Thoracic and lumbosacral neuritis 07/02/2012 Overview (01/23/2017): LUMBOSACRAL NEURITIS NOS Immunizations Immunization Administration Dates Next Due Tdap 05/01/2011 Surgical History Surgery Date Site/Laterality Comments COLONOSCOPY 10/20/2012 - 10/19/2013 POLYPECTOMY Medical History Medical History Date Comments Hx Other Medical 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 Hx Other Medical er sore throat; Comments: LNP 07/07/2014 - Hx Other Medical sharp pain in R arm area Colon polyp MVP (mitral valve prolapse) 1999 Hypertension Heart murmur Family History Medical History Relation Name Comments Coronary artery disease Father Perri nary artery disease; Heart failure Father Coronary artery disease Mother CABG ; Diabetes Mother Diabetes mellit us; cardiac arrest Sister Has defibrill ator Relation Name Status Comments Brother Alive Father (Age 80) Mother Alive Sister Alive Social History Tobacco Use Types Packs/Day Years Used Date Smoking Tobacco: Never Smokeless Tobacco: Never Alcohol Use Standard Drinks/Week Comments Not Currently 0 (1 standard drink = 0.6 oz pur e alcohol) Comments Unknown Sex and Gender Information Value Date Recorded Sex Assigned at Not on file 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 Gender Identity Not on file Sexual Orientation Not on file Last Filed Vital Signs Vital Sign Reading Time Taken Comments Blood Pressure 134/70 08/06/2019 11:24 AM CDT Pulse 77 08/06/2019 11:24 AM CDT Temperature 37.1 C (98.7 F) 01/15/2018 2:20 PM CDT Respiratory Rate 18 01/15/2018 2:20 PM CDT Oxygen Saturation 97% 08/06/2019 11:24 AM CDT Inhaled Oxygen Concentration - - Weight 70.3 kg (155 lb) 08/06/2019 11:24 AM CDT Height 160 cm (5' 3) 08/06/2019 11:24 AM CDT Body Mass Index 27.46 08/06/2019 11:24 AM CDT Plan of Treatment Not on file Insurance [employer] [facility] Advance Directives For more information, please contact: [phone] * Full Code (Latest Code Status on File) Date Activated Date Inactivated Comments 01/15/2018 11:23 AM 01/15/2018 4:42 PM Care Teams Smocker Relationship Specialty Start Date End Date Irene Dotson PA PCP - General Physician Business Systems Consultant 07/28/19
--- OUTSIDE RECORDS SUMMARY | 2025-10-11 07:22 | XMS_ITS | Data Portability ---
Author Organization [facility] [employer], Main Office Address [address] [place] [address] Assessment No assessment recorded. Plan of Treatment Reminders Order Date Submit Date Provider Last Modified By Organization Details Last Modified Time Details Appointments None recorded. Lab lipid panel, serum 2022 [employer] [facility], [address], [place], [address], 4 05:47:39 hepatic function panel, serum 2022 [employer] [facility], [address], [place], [address], 05:47:42 TSH + free T4, serum 2022 [employer] [facility], [address], [place], [address], 4 05:47:38 HbA1c (hemoglobin A1c), blood 2022 [employer] [facility], [address], [place], [address], 4 05:47:41 BMP, serum or plasma 2022 [employer] [facility], [address], [place], [address], 4 05:47:40 CBC w/ auto diff 2022 [facility], [address], [place], [address], 4 05:47:43 iron + TIBC + ferritin, serum 2022 024 [facility], [address], [place], [address], 4 05:47:36 lipid panel, serum 2022 023 [facility], [address], [place], [address], 3 02:47:15 hepatic function panel, serum 2022 023 [facility], [address], [place], [address], 3 02:47:18 TSH + free T4, serum 2022 023 [facility], [address], [place], [address], 3 02:47:14 HbA1c (hemoglobin A1c), blood 2022 023 [facility], [address], [place], [address], 3 02:47:17 BMP, serum or plasma 2022 023 [facility], [address], [place], [address], 3 02:47:16 CBC w/ auto diff 2022 023 [facility], [address], [place], [address], 3 02:47:19 iron + TIBC + ferritin, serum 2022 023 [email or web address], [address], [place], [address], 3 02:47:13 Referral None recorded. Procedures colonoscopy procedure (PROC) 2022 023 [facility] Matthew valente MD, [address], [place], [address], 3 10:53:16 Surgeries None recorded. Imaging DEXA 2022 023 [facility], [address], [place], [address], 4 14:50:05 Medication Orders codeine 10 mg-guaifene sin 100 mg/5 mL oral liquid [email or web address] [facility] [place], [address], 3 23:19:45 Zithromax Z-Jaycob 250 mg tablet 2022 023 [facility] [address] [place], [address], 3 12:59:48 prednisone 20 mg tablet 2022 023 [facility] [address] [place], [address], 3 12:59:46 Patient TargetsNo targets recorded. Patient InstructionsNo instructions recorded. Reason for Referral None Reported. Results Created Date Observation Date Name Description Value Unit Range Abnormal Flag Note LastModifiedBy Organization Detail LastModifiedTime 07/18/20 21 07/20/2021 IGP, APTIM A HPV diagnosis: commen t NEGAT WIL FOR INTRA EPITH ELIAL LESIO N OR JARON CASEY . CELLU LAR AGUILAR ES ASSOC IATED WITH ATROP HY ARE PRESE NT. Not Available [facility] [address] [place], [address], 07/21/2021 06:13:03 07/18/20 21 07/20/2021 IGP, APTIM A HPV specimen adequacy: lori olsen Satis facto ry for evalu ation . Endoc ervic al compo nent may not be disti nguis hed in cases of atrop hy. Not Available [facility] [address] [place], [address], 07/21/2021 06:13:03 07/18/20 21 07/20/2021 IGP, APTIM A HPV clinician provided ICD10: lori olsen Z01.4 19 Not Available [facility] [address] [place], [address], 07/21/2021 06:13:03 07/18/20 21 07/20/2021 IGP, APTIM A HPV performed by: Ana Cristina Briceno (ASCP ) Not Available [facility] [address] [place], [address], 07/21/2021 06:13:03 07/18/20 21 07/20/2021 IGP, APTIM A HPV . . Not Available [facility] [address] [place], [address], 07/21/2021 06:13:03 07/18/20 21 07/20/2021 IGP, APTIM A HPV note: lori olsen The Pap smear is a scree chau test desig onofre to aid in the detec tion of nimisha ligna nt and malig nant condi tions of the uteri ne cervi x. It is not a diagn ostic proce dure and shoul d not be used as the sole means of detec ting cervi jake cance r. Both false -posi tive and false -nega tive repor ts do occur . Not Available [facility] [address] [place], [address], 07/21/2021 06:13:03 07/18/20 21 07/20/2021 IGP, APTIM A HPV test methodology: commen t This liqui d based ThinP rep(R ) pap test was cyndie adhikari with the use of an image guide cesar [place] Not Available [facility] [address], [address], 07/21/2021 06:13:03 07/18/20 21 07/20/2021 IGP, APTIM A HPV HPV aptima negati ve negati ve This nucle ic acid ampli ficat ion test detec ts fourt een high- risk HPV types (16,1 8,31, 33,35 ,39,4 5,51, 52,56 ,58,5 9,66, 68) witho ut diffe renti ation . Not Available [facility] [address], [address], 07/21/2021 06:13:03 07/25/20 21 07/26/2021 URINA LYSIS ,COMP LETE( REFL) color yellow yellow normal Not Available [address], [address], 07/26/2021 07:57:10 07/25/20 21 07/26/2021 URINA LYSIS ,COMP LETE( REFL) appearance clear clear normal Not Available [address], [address], 07/26/2021 07:57:10 07/25/20 21 07/26/2021 URINA LYSIS ,COMP LETE( REFL) specific gravity 1.016 1.001- 1.035 normal Not Available [address], [address], 07/26/2021 07:57:10 07/25/20 21 07/26/2021 URINA LYSIS ,COMP LETE( REFL) pH 7.0 5.0-8. 0 normal Not Available [address], [address], 07/26/2021 07:57:10 07/25/20 21 07/26/2021 URINA LYSIS ,COMP LETE( REFL) glucose negati ve negati ve normal Not Available [address], [address], 07/26/2021 07:57:10 07/25/20 21 07/26/2021 URINA LYSIS ,COMP LETE( REFL) bilirubin negati ve negati ve normal Not Available [address], [address], 07/26/2021 07:57:10 07/25/2007/26/2021 URINA LYSIS ,COMP LETE( REFL) ketones negati ve negati ve normal Not Available [address], [address], 07/26/2021 07:57:10 07/25/20 21 07/26/2021 URINA LYSIS ,COMP LETE( REFL) occult blood negati ve negati ve normal Not Available [address], [address], 07/26/2021 07:57:10 07/25/20 21 07/26/2021 URINA LYSIS ,COMP LETE( REFL) protein negati ve negati ve normal Not Available [address], [address], 07/26/2021 07:57:10 07/25/20 21 07/26/2021 URINA LYSIS ,COMP LETE( REFL) nitrite negati ve negati ve normal Not Available [address], [address], 07/26/2021 07:57:10 07/25/20 21 07/26/2021 URINA LYSIS ,COMP LETE( REFL) leukocyte esterase negati ve negati ve normal Not Available [address], [place], [address], 07/26/2021 07:57:10 07/25/20 21 07/26/2021 URINA LYSIS ,COMP LETE( REFL) WBC 0-5 /hpf < or = 5 normal Not Available [address], [address], 07/26/2021 07:57:10 07/25/20 21 07/26/2021 URINA LYSIS ,COMP LETE( REFL) RBC 0-2 /hpf < or = 2 normal Not Available [address], [address], 07/26/2021 07:57:10 07/25/20 21 07/26/2021 URINA LYSIS ,COMP LETE( REFL) squamous epithelial cells 0-5 /hpf < or = 5 Not Available [address], [address], 07/26/2021 07:57:10 07/25/20 21 07/26/2021 URINA LYSIS ,COMP LETE( REFL) bacteria none seen /hpf none seen normal Not Available [address], [address], 07/26/2021 07:57:10 07/25/20 21 07/26/2021 URINA LYSIS ,COMP LETE( REFL) hyaline cast none seen /lpf none seen normal Not Available [address], [address], 07/26/2021 07:57:10 07/25/20 21 07/26/2021 CBC (INCL UDES DIFF/ PLT) white blood cell count 7.0 thous and/u L 3.8-10 .8 normal Not Available [address], [address], 07/26/2021 07:57:09 07/25/20 21 07/26/2021 CBC (INCL UDES DIFF/ PLT) red blood cell count 5.31 sampson on/uL 3.80-5 .10 high Not Available [address], [address], 07/26/2021 07:57:09 07/25/20 21 07/26/2021 CBC (INCL UDES DIFF/ PLT) hemoglobin 13.2 g/dL 11.7-1 5.5 normal Not Available [address], [address], 07/26/2021 07:57:09 07/25/20 21 07/26/2021 CBC (INCL UDES DIFF/ PLT) hematocrit 43.2 % 35.0-4 5.0 normal Not Available [address], [address], 07/26/2021 07:57:09 07/25/20 21 07/26/2021 CBC (INCL UDES DIFF/ PLT) MCV 81.4 fL 80.0-1 00.0 normal Not Available [address], [address], 07/26/2021 07:57:09 07/25/20 21 07/26/2021 CBC (INCL UDES DIFF/ PLT) MCH 24.9 pg 27.0-3 3.0 low Not Available [address], [address], 07/26/2021 07:57:09 07/25/20 21 07/26/2021 CBC (INCL UDES DIFF/ PLT) MCHC 30.6 g/dL 32.0-3 6.0 low Not Available [address], [address], 07/26/2021 07:57:09 07/25/20 21 07/26/2021 CBC (INCL UDES DIFF/ PLT) RDW 13.3 % 11.0-1 5.0 normal Not Available [address], [address], 07/26/2021 07:57:09 07/25/20 21 07/26/2021 CBC (INCL UDES DIFF/ PLT) platelet count 302 thous and/u L 140-40 0 normal Not Available [address], [address], 07/26/2021 07:57:09 07/25/20 21 07/26/2021 CBC (INCL UDES DIFF/ PLT) MPV 11.8 fL 7.5-12 .5 normal Not Available [address], [address], 07/26/2021 07:57:09 07/25/20 21 07/26/2021 CBC (INCL UDES DIFF/ PLT) absolute neutrophils 4158 cells /uL 1500-7 800 normal Not Available [address], [address], 07/26/2021 07:57:09 07/25/20 21 07/26/2021 CBC (INCL UDES DIFF/ PLT) absolute lymphocytes 2051 cells /uL 850-39 00 normal Not Available [address], [address], 07/26/2021 07:57:09 07/25/20 21 07/26/2021 CBC (INCL UDES DIFF/ PLT) absolute monocytes 518 cells /uL 200-95 0 normal Not Available [address], [address], 07/26/2021 07:57:09 07/25/20 21 07/26/2021 CBC (INCL UDES DIFF/ PLT) absolute eosinophils 196 cells /uL 15-500 normal Not Available [address], [address], 07/26/2021 07:57:09 07/25/20 21 07/26/2021 CBC (INCL UDES DIFF/ PLT) absolute basophils 77 cells /uL 0-200 normal Not Available [address], [address], 07/26/2021 07:57:09 07/25/20 21 07/26/2021 CBC (INCL UDES DIFF/ PLT) neutrophils 59.4 % normal Not Available [address], [address], 07/26/2021 07:57:09 07/25/20 21 07/26/2021 CBC (INCL UDES DIFF/ PLT) lymphocytes 29.3 % normal Not Available [address], [address], 07/26/2021 07:57:09 07/25/20 21 07/26/2021 CBC (INCL UDES DIFF/ PLT) monocytes 7.4 % normal Not Available [address], [address], 07/26/2021 07:57:09 07/25/20 21 07/26/2021 CBC (INCL UDES DIFF/ PLT) eosinophils 2.8 % normal Not Available [address], [address], 07/26/2021 07:57:09 07/25/20 21 07/26/2021 CBC (INCL UDES DIFF/ PLT) basophils 1.1 % normal Not Available [address], [address], 07/26/2021 07:57:09 07/25/20 21 07/26/2021 HEMOG LOBIN A1C hemoglobin A1C 5.8 %_of_ total _HGB <5.7 high Not Available [address], [address], 07/26/2021 07:57:09 07/25/20 21 07/26/2021 COMPR EHENS WIL METAB OLIC PANEL eGFR non-afr. sudanese 87 mL/mi n/1.7 3m2 > or = 60 normal Not Available [address], [address], 07/26/2021 07:57:08 07/25/20 21 07/26/2021 COMPR EHENS WIL METAB OLIC PANEL eGFR 101 mL/mi n/1.7 3m2 > or = 60 normal Not Available [address], [address], 07/26/2021 07:57:08 07/25/20 21 07/26/2021 COMPR EHENS WIL METAB OLIC PANEL BUN/creatini ne ratio not applic able (calc ) 6-22 Not Available [address], [address], 07/26/2021 07:57:08 07/25/20 21 07/26/2021 COMPR EHENS WIL METAB OLIC PANEL sodium 138 mmol/ L 135-14 6 normal Not Available [address], [address], 07/26/2021 07:57:08 07/25/20 21 07/26/2021 COMPR EHENS WIL METAB OLIC PANEL potassium 4.8 mmol/ L 3.5-5. 3 normal Not Available [address], [address], 07/26/2021 07:57:08 07/25/20 21 07/26/2021 COMPR EHENS WIL METAB OLIC PANEL chloride 100 mmol/ L 98-110 normal Not Available [address], [address], 07/26/2021 07:57:08 07/25/20 21 07/26/2021 COMPR EHENS WIL METAB OLIC PANEL carbon dioxide 31 mmol/ L 20-32 normal Not Available [address], [address], 07/26/2021 07:57:08 07/25/20 21 07/26/2021 COMPR EHENS WIL METAB OLIC PANEL calcium 9.9 mg/dL 8.6-10 .4 normal Not Available [address], [address], 07/26/2021 07:57:08 07/25/20 21 07/26/2021 COMPR EHENS WIL METAB OLIC PANEL protein, total 7.1 g/dL 6.1-8. 1 normal Not Available [address], [address], 07/26/2021 07:57:08 07/25/20 21 07/26/2021 COMPR EHENS WIL METAB OLIC PANEL albumin 4.2 g/dL 3.6-5. 1 normal Not Available [address], [address], 07/26/2021 07:57:08 07/25/20 21 07/26/2021 COMPR EHENS WIL METAB OLIC PANEL globulin 2.9 g/dL_ (calc ) 1.9-3. 7 normal Not Available [address], [address], 07/26/2021 07:57:08 07/25/20 21 07/26/2021 COMPR EHENS WIL METAB OLIC PANEL albumin/glob ulin ratio 1.4 (calc ) 1.0-2. 5 normal Not Available [address], [address], 07/26/2021 07:57:08 07/25/20 21 07/26/2021 COMPR EHENS WIL METAB OLIC PANEL bilirubin, total 0.6 mg/dL 0.2-1. 2 normal Not Available [address], [address], 07/26/2021 07:57:08 07/25/20 21 07/26/2021 COMPR EHENS WIL METAB OLIC PANEL alkaline phosphatase 95 U/L 37-153 normal Not Available [facility] [employer] [address], [address], 07/26/2021 07:57:08 07/25/20 21 07/26/2021 COMPR EHENS WIL METAB OLIC PANEL AST 26 U/L 10-35 normal Not Available [address], [address], 07/26/2021 07:57:08 07/25/20 21 07/26/2021 COMPR EHENS WIL METAB OLIC PANEL ALT 39 U/L 6-29 high Not Available [address], [address], 07/26/2021 07:57:08 07/25/20 21 07/26/2021 COMPR EHENS WIL METAB OLIC PANEL glucose 88 mg/dL 65-99 normal Fasti ng refer ence inter samson Not Available [address], [address], 07/26/2021 07:57:08 07/25/20 21 07/26/2021 COMPR EHENS WIL METAB OLIC PANEL urea nitrogen (BUN) 14 mg/dL 7-25 normal Not Available [address], [address], 07/26/2021 07:57:08 07/25/20 21 07/26/2021 COMPR EHENS WIL METAB OLIC PANEL creatinine 0.73 mg/dL 0.50-0 .99 normal For patie nts >49 years of age, the refer ence limit for Creat inine is appro ximat jude 13% highe r for peopl e ident ified as Afric an-Am james n. Not Available [address], [address], 07/26/2021 07:57:08 07/25/20 21 07/26/2021 LIPID PANEL WITH RATIO S cholesterol, total 147 mg/dL <200 normal Not Available [address], [address], 07/26/2021 07:57:08 07/25/20 21 07/26/2021 LIPID PANEL WITH RATIO S HDL cholesterol 53 mg/dL > or = 50 normal Not Available [address], [address], 07/26/2021 07:57:08 07/25/20 21 07/26/2021 LIPID PANEL WITH RATIO S triglyceride s 186 mg/dL <150 high Not Available [address], [address], 07/26/2021 07:57:08 07/25/20 21 07/26/2021 LIPID PANEL WITH RATIO S LDL-choleste rol 69 mg/dL _(jake c) normal Refer ence range : <100 Manav able range <100 mg/dL for prima ry preve ntion ; <70 mg/dL for patie nts with CHD or diabe tic patie nts with > or = 2 CHD risk facto rs. LDL-C is now calcu lated using the Linda n-Hop kins calcu morenita n, which is a valid ated novel leon jean accur acy than the Fried lakhwinder equat ion in the estim ation of LDL-C . Linda gallardo SS et al. ROCÍO. 2013; 310(1 9): 2061- 2068 (http ://ed ucati on.Qu bhartiDi Talasims. com/f aq/FA Q164) Not Available [address], [address], 07/26/2021 07:57:08 07/25/20 21 07/26/2021 LIPID PANEL WITH RATIO S chol/HDLC ratio 2.8 (calc ) <5.0 normal Not Available [address], [address], 07/26/2021 07:57:08 07/25/20 21 07/26/2021 LIPID PANEL WITH RATIO S LDL/HDL ratio 1.3 (calc ) Below avera ge Risk: <2.34 Eldon ge Risk: 2.35- 4.12 Moder ate Risk: 4.13- 5.56 High Risk: >5.57 Not Available [address], [address], 07/26/2021 07:57:08 07/25/20 21 07/26/2021 LIPID PANEL WITH RATIO S non HDL cholesterol 94 mg/dL _(jake c) <130 normal For patie nts with diabe wenceslao plus 1 major ASCVD risk facto r, treat ing to a non-H DL-C goal of <100 mg/dL (LDL- C of <70 mg/dL ) is manuel hawko n. Not Available [address], [address], 07/26/2021 07:57:08 07/25/20 21 07/26/2021 TSH+F REE T4 TSH 2.91 mIU/L 0.40-4 .50 normal Not Available [address], [address], 07/26/2021 07:57:06 07/25/20 21 07/26/2021 TSH+F REE T4 T4, free 1.2 NG/dL 0.8-1. 8 normal Not Available [address], [address], 07/26/2021 07:57:06 01/26/20 22 01/26/2022 VITAM IN B12 vitamin B12 276 pg/mL 200-11 00 normal Pleas e Note: Altho ugh the refer ence range for vitam in B12 is 200-1 100 pg/mL , it has been repor concha that betwe en 5 and 10% of patie nts with value s betwe en 200 and 400 pg/mL may exper ience neuro psych iatri c and hemat ologi c abnor malit ies due to occul t B12 defic iency ; less than 1% of patie nts with value s above 400 pg/mL will have sympt oms. Not Available [facility] [address], [address], 01/26/2022 03:19:53 01/26/20 22 01/26/2022 CBC (INCL UDES DIFF/ PLT) (REFL ) white blood cell count 7.2 thous and/u L 3.8-10 .8 normal Not Available [facility] [address], [address], 01/26/2022 03:19:52 01/26/20 22 01/26/2022 CBC (INCL UDES DIFF/ PLT) (REFL ) red blood cell count 5.04 sampson on/uL 3.80-5 .10 normal Not Available [facility] [address], [address], 01/26/2022 03:19:52 01/26/20 22 01/26/2022 CBC (INCL UDES DIFF/ PLT) (REFL ) hemoglobin 12.7 g/dL 11.7-1 5.5 normal Not Available [facility] [address], [address], 01/26/2022 03:19:52 01/26/20 22 01/26/2022 CBC (INCL UDES DIFF/ PLT) (REFL ) hematocrit 40.8 % 35.0-4 5.0 normal Not Available [facility] [address], [address], 01/26/2022 03:19:52 01/26/20 22 01/26/2022 CBC (INCL UDES DIFF/ PLT) (REFL ) MCV 81.0 fL 80.0-1 00.0 normal Not Available [facility] [address], [address], 01/26/2022 03:19:52 01/26/20 22 01/26/2022 CBC (INCL UDES DIFF/ PLT) (REFL ) MCH 25.2 pg 27.0-3 3.0 low Not Available [address], [address], 01/26/2022 03:19:52 01/26/20 22 01/26/2022 CBC (INCL UDES DIFF/ PLT) (REFL ) MCHC 31.1 g/dL 32.0-3 6.0 low Not Available [address], [address], 01/26/2022 03:19:52 01/26/20 22 01/26/2022 CBC (INCL UDES DIFF/ PLT) (REFL ) RDW 13.3 % 11.0-1 5.0 normal Not Available [address], [address], 01/26/2022 03:19:52 01/26/20 22 01/26/2022 CBC (INCL UDES DIFF/ PLT) (REFL ) platelet count 250 thous and/u L 140-40 0 normal Not Available [address], [address], 01/26/2022 03:19:52 01/26/20 22 01/26/2022 CBC (INCL UDES DIFF/ PLT) (REFL ) MPV 13.1 fL 7.5-12 .5 high Not Available [address], [address], 01/26/2022 03:19:52 01/26/20 22 01/26/2022 CBC (INCL UDES DIFF/ PLT) (REFL ) absolute neutrophils 3845 cells /uL 1500-7 800 normal Not Available [address], [address], 01/26/2022 03:19:52 01/26/20 22 01/26/2022 CBC (INCL UDES DIFF/ PLT) (REFL ) absolute lymphocytes 2462 cells /uL 850-39 00 normal Not Available [address], [address], 01/26/2022 03:19:52 01/26/20 22 01/26/2022 CBC (INCL UDES DIFF/ PLT) (REFL ) absolute monocytes 569 cells /uL 200-95 0 normal Not Available [address], [address], 01/26/2022 03:19:52 01/26/20 22 01/26/2022 CBC (INCL UDES DIFF/ PLT) (REFL ) absolute eosinophils 216 cells /uL 15-500 normal Not Available [address], [address], 01/26/2022 03:19:52 01/26/20 22 01/26/2022 CBC (INCL UDES DIFF/ PLT) (REFL ) absolute basophils 108 cells /uL 0-200 normal Not Available [address], [address], 01/26/2022 03:19:52 01/26/20 22 01/26/2022 CBC (INCL UDES DIFF/ PLT) (REFL ) neutrophils 53.4 % normal Not Available [address], [address], 01/26/2022 03:19:52 01/26/20 22 01/26/2022 CBC (INCL UDES DIFF/ PLT) (REFL ) lymphocytes 34.2 % normal Not Available [address], [address], 01/26/2022 03:19:52 01/26/20 22 01/26/2022 CBC (INCL UDES DIFF/ PLT) (REFL ) monocytes 7.9 % normal Not Available [address], [address], 01/26/2022 03:19:52 01/26/20 22 01/26/2022 CBC (INCL UDES DIFF/ PLT) (REFL ) eosinophils 3.0 % normal Not Available [facility] [address] [place], [address], 01/26/2022 03:19:52 01/26/20 22 01/26/2022 CBC (INCL UDES DIFF/ PLT) (REFL ) basophils 1.5 % normal Not Available [facility] [place] [address] [place], [address], 01/26/2022 03:19:52 01/26/20 22 01/26/2022 HEMOG LOBIN A1C hemoglobin A1C 5.8 %_of_ total _HGB <5.7 high For someo [...] ntly, no conse nsus exist s regar john use of hemog lobin A1c for diagn osis of diabe wenceslao for child jennifer. Not Available [facility] [address] [place], [address], 01/26/2022 03:19:52 01/26/20 22 01/26/2022 COMPR EHENS WIL METAB OLIC PANEL glucose 82 mg/dL 65-99 normal Fasti ng refer ence inter samson Not Available [facility] [address] [place], [address], 01/26/2022 03:19:51 01/26/20 22 01/26/2022 COMPR EHENS WIL METAB OLIC PANEL urea nitrogen (BUN) 12 mg/dL 7-25 normal Not Available [address], [address], 01/26/2022 03:19:51 01/26/20 22 01/26/2022 COMPR EHENS WIL METAB OLIC PANEL creatinine 0.65 mg/dL 0.50-0 .99 normal For patie nts >49 years of age, the refer ence limit for Creat inine is appro ximat jude 13% highe r for peopl e ident ified as Afric an-Am james n. Not Available [address], [address], 01/26/2022 03:19:51 01/26/20 22 01/26/2022 COMPR EHENS WIL METAB OLIC PANEL eGFR non-afr. sudanese 93 mL/mi n/1.7 3m2 > or = 60 normal Not Available [address], [address], 01/26/2022 03:19:51 01/26/20 22 01/26/2022 COMPR EHENS WIL METAB OLIC PANEL eGFR 108 mL/mi n/1.7 3m2 > or = 60 normal Not Available [address], [address], 01/26/2022 03:19:51 01/26/20 22 01/26/2022 COMPR EHENS WIL METAB OLIC PANEL BUN/creatini ne ratio not applic able (calc ) 6-22 Not Available [address], [address], 01/26/2022 03:19:51 01/26/20 22 01/26/2022 COMPR EHENS WIL METAB OLIC PANEL sodium 139 mmol/ L 135-14 6 normal Not Available [address] [place], [address], 01/26/2022 03:19:51 01/26/20 22 01/26/2022 COMPR EHENS WIL METAB OLIC PANEL potassium 5.0 mmol/ L 3.5-5. 3 normal Not Available [address], [address], 01/26/2022 03:19:51 01/26/20 22 01/26/2022 COMPR EHENS WIL METAB OLIC PANEL chloride 102 mmol/ L 98-110 normal Not Available [address], [address], 01/26/2022 03:19:51 01/26/20 22 01/26/2022 COMPR EHENS WIL METAB OLIC PANEL carbon dioxide 33 mmol/ L 20-32 high Not Available [address], [address], 01/26/2022 03:19:51 01/26/20 22 01/26/2022 COMPR EHENS WIL METAB OLIC PANEL calcium 9.7 mg/dL 8.6-10 .4 normal Not Available [address], [address], 01/26/2022 03:19:51 01/26/20 22 01/26/2022 COMPR EHENS WIL METAB OLIC PANEL protein, total 6.8 g/dL 6.1-8. 1 normal Not Available [address], [address], 01/26/2022 03:19:51 01/26/20 22 01/26/2022 COMPR EHENS WIL METAB OLIC PANEL albumin 4.1 g/dL 3.6-5. 1 normal Not Available [address], [address], 01/26/2022 03:19:51 01/26/20 22 01/26/2022 COMPR EHENS WIL METAB OLIC PANEL globulin 2.7 g/dL_ (calc ) 1.9-3. 7 normal Not Available [address], [address], 01/26/2022 03:19:51 01/26/20 22 01/26/2022 COMPR EHENS WIL METAB OLIC PANEL albumin/glob ulin ratio 1.5 (calc ) 1.0-2. 5 normal Not Available [address], [address], 01/26/2022 03:19:51 01/26/20 22 01/26/2022 COMPR EHENS WIL METAB OLIC PANEL bilirubin, total 0.5 mg/dL 0.2-1. 2 normal Not Available [address], [address], 01/26/2022 03:19:51 01/26/20 22 01/26/2022 COMPR EHENS WIL METAB OLIC PANEL alkaline phosphatase 87 U/L 37-153 normal Not Available [address], [address], 01/26/2022 03:19:51 01/26/20 22 01/26/2022 COMPR EHENS WIL METAB OLIC PANEL AST 19 U/L 10-35 normal Not Available [address], [address], 01/26/2022 03:19:51 01/26/20 22 01/26/2022 COMPR EHENS WIL METAB OLIC PANEL ALT 30 U/L 6-29 high Not Available [address], [address], 01/26/2022 03:19:51 01/26/20 22 01/26/2022 LIPID PANEL WITH RATIO S cholesterol, total 138 mg/dL <200 normal Not Available [address], [address], 01/26/2022 03:19:51 01/26/20 22 01/26/2022 LIPID PANEL WITH RATIO S HDL cholesterol 50 mg/dL > or = 50 normal Not Available [facility] [id number] [place] [address], [id number], 01/26/2022 03:19:51 01/26/20 22 01/26/2022 LIPID PANEL WITH RATIO S triglyceride s 164 mg/dL <150 high Not Available [address], [address], 01/26/2022 03:19:51 01/26/20 22 01/26/2022 LIPID PANEL WITH RATIO S LDL-choleste rol 64 mg/dL _(jake c) normal Refer ence range [...] 9): 2061- 2068 (http ://ed ucati on.Qu [email or web address] [email or web address]. com/f aq/FA Q164) Not Available [address], [address], 01/26/2022 03:19:51 01/26/20 22 01/26/2022 LIPID PANEL WITH RATIO S chol/HDLC ratio 2.8 (calc ) <5.0 normal Not Available [facility] [id number] [place] [address], [address], 01/26/2022 03:19:51 01/26/20 22 01/26/2022 LIPID PANEL WITH RATIO S LDL/HDL ratio 1.3 (calc ) Below avera ge Risk: <2.34 Eldon ge Risk: 2.35- 4.12 Moder ate Risk: 4.13- 5.56 High Risk: >5.57 Not Available [address], [address], 01/26/2022 03:19:51 01/26/20 22 01/26/2022 LIPID PANEL WITH RATIO S non HDL cholesterol 88 mg/dL _(jake c) <130 normal For patie nts with diabe wenceslao plus 1 major ASCVD risk facto r, treat ing to a non-H DL-C goal of <100 mg/dL (LDL- C of <70 mg/dL ) is manuel combs optio n. Not Available [address], [address], 01/26/2022 03:19:51 01/26/20 22 01/26/2022 IRON, TIBC AND SHANEKA TIN PANEL iron, total 79 mcg/d L 45-160 normal Not Available [address], [address], 01/26/2022 03:19:50 01/26/20 22 01/26/2022 IRON, TIBC AND SHANEKA TIN PANEL iron binding capacity 342 mcg/d L_(ca lc) 250-45 0 normal Not Available [address], [address], 01/26/2022 03:19:50 01/26/20 22 01/26/2022 IRON, TIBC AND SHANEKA TIN PANEL % saturation 23 %_(ca lc) 16-45 normal Not Available [address], [address], 01/26/2022 03:19:50 01/26/20 22 01/26/2022 IRON, TIBC AND SHANEKA TIN PANEL ferritin 61 NG/mL 16-288 normal Not Available [address], [address], 01/26/2022 03:19:50 08/08/2008/09/2022 VITAM IN B12 vitamin B12 >2000 pg/mL 200-11 00 high Not Available [address], [address], 08/09/2022 12:43:45 08/08/2008/09/2022 CBC (INCL UDES DIFF/ PLT) white blood cell count 6.4 thous and/u L 3.8-10 .8 normal Not Available [address], [address], 08/09/2022 12:43:44 08/08/2008/09/2022 CBC (INCL UDES DIFF/ PLT) red blood cell count 5.15 sampson on/uL 3.80-5 .10 high Not Available [address], [address], 08/09/2022 12:43:44 08/08/20 22 08/09/2022 CBC (INCL UDES DIFF/ PLT) hemoglobin 12.9 g/dL 11.7-1 5.5 normal Not Available [address], [address], 08/09/2022 12:43:44 08/08/2008/09/2022 CBC (INCL UDES DIFF/ PLT) hematocrit 41.9 % 35.0-4 5.0 normal Not Available [address], [address], 08/09/2022 12:43:44 08/08/2008/09/2022 CBC (INCL UDES DIFF/ PLT) MCV 81.4 fL 80.0-1 00.0 normal Not Available [address], [address], 08/09/2022 12:43:44 08/08/2008/09/2022 CBC (INCL UDES DIFF/ PLT) MCH 25.0 pg 27.0-3 3.0 low Not Available [address], [address], 08/09/2022 12:43:44 08/08/2008/09/2022 CBC (INCL UDES DIFF/ PLT) MCHC 30.8 g/dL 32.0-3 6.0 low Not Available [address], [address], 08/09/2022 12:43:44 08/08/2008/09/2022 CBC (INCL UDES DIFF/ PLT) RDW 13.7 % 11.0-1 5.0 normal Not Available [address], [address], 08/09/2022 12:43:44 08/08/2008/09/2022 CBC (INCL UDES DIFF/ PLT) platelet count 252 thous and/u L 140-40 0 normal Not Available [address], [address], 08/09/2022 12:43:44 08/08/2008/09/2022 CBC (INCL UDES DIFF/ PLT) MPV 12.3 fL 7.5-12 .5 normal Not Available [address], [address], 08/09/2022 12:43:44 08/08/2008/09/2022 CBC (INCL UDES DIFF/ PLT) absolute neutrophils 3603 cells /uL 1500-7 800 normal Not Available [address], [address], 08/09/2022 12:43:44 08/08/20 22 08/09/2022 CBC (INCL UDES DIFF/ PLT) absolute lymphocytes 1990 cells /uL 850-39 00 normal Not Available [address], [address], 08/09/2022 12:43:44 08/08/2008/09/2022 CBC (INCL UDES DIFF/ PLT) absolute monocytes 506 cells /uL 200-95 0 normal Not Available [address], [address], 08/09/2022 12:43:44 08/08/2008/09/2022 CBC (INCL UDES DIFF/ PLT) absolute eosinophils 198 cells /uL 15-500 normal Not Available [address] [address] [place], [address], 08/09/2022 12:43:44 08/08/2008/09/2022 CBC (INCL UDES DIFF/ PLT) absolute basophils 102 cells /uL 0-200 normal Not Available [address], [address], 08/09/2022 12:43:44 08/08/20 22 08/09/2022 CBC (INCL UDES DIFF/ PLT) neutrophils 56.3 % normal Not Available [address], [address], 08/09/2022 12:43:44 08/08/20 22 08/09/2022 CBC (INCL UDES DIFF/ PLT) lymphocytes 31.1 % normal Not Available [address], [address], 08/09/2022 12:43:44 08/08/20 22 08/09/2022 CBC (INCL UDES DIFF/ PLT) monocytes 7.9 % normal Not Available [address], [address], 08/09/2022 12:43:44 08/08/20 22 08/09/2022 CBC (INCL UDES DIFF/ PLT) eosinophils 3.1 % normal Not Available [address], [address], 08/09/2022 12:43:44 08/08/2008/09/2022 CBC (INCL UDES DIFF/ PLT) basophils 1.6 % normal Not Available [address] [place], [address], 08/09/2022 12:43:44 08/08/2008/09/2022 HEMOG LOBIN A1C hemoglobin A1C 5.8 %_of_ total _HGB <5.7 high For someo [...] diabe wenceslao for child jennifer. Not Available [address] [address] [place], [address], 08/09/2022 12:43:44 08/08/2008/09/2022 COMPR EHENS WIL METAB OLIC PANEL glucose 91 mg/dL 65-99 normal Fasti ng refer ence inter samson Not Available [facility] [address] [place], [address], 08/09/2022 12:43:43 08/08/20 22 08/09/2022 COMPR EHENS WIL METAB OLIC PANEL urea nitrogen (BUN) 9 mg/dL 7-25 normal Not Available [facility] [address] [place], [address], 08/09/2022 12:43:43 08/08/20 22 08/09/2022 COMPR EHENS WIL METAB OLIC PANEL creatinine 0.76 mg/dL 0.50-1 .05 normal Not Available [address], [address], 08/09/2022 12:43:43 08/08/20 22 08/09/2022 COMPR EHENS WIL METAB OLIC PANEL eGFR 87 mL/mi n/1.7 3m2 > or = 60 normal The eGFR is based on the CKD-E PI 2020 equat ion. To calcu late the new eGFR from a previ ous Creat inine or Cysta tin C resul t, go to https :[email or web address] [email or web address] tubbs s/ kdoqi /gfr% 5Fcal culat or Not Available [address], [address], 08/09/2022 12:43:43 08/08/20 22 08/09/2022 COMPR EHENS WIL METAB OLIC PANEL BUN/creatini ne ratio not applic able (calc ) 6-22 Not Available [address], [address], 08/09/2022 12:43:43 08/08/20 22 08/09/2022 COMPR EHENS WIL METAB OLIC PANEL sodium 138 mmol/ L 135-14 6 normal Not Available [address], [address], 08/09/2022 12:43:43 08/08/20 22 08/09/2022 COMPR EHENS WIL METAB OLIC PANEL potassium 4.2 mmol/ L 3.5-5. 3 normal Not Available [address], [address], 08/09/2022 12:43:43 08/08/20 22 08/09/2022 COMPR EHENS WIL METAB OLIC PANEL chloride 103 mmol/ L 98-110 normal Not Available [address], [address], 08/09/2022 12:43:43 08/08/20 22 08/09/2022 COMPR EHENS WIL METAB OLIC PANEL carbon dioxide 30 mmol/ L 20-32 normal Not Available [address], [address], 08/09/2022 12:43:43 08/08/20 22 08/09/2022 COMPR EHENS WIL METAB OLIC PANEL calcium 9.4 mg/dL 8.6-10 .4 normal Not Available [address], [address], 08/09/2022 12:43:43 08/08/20 22 08/09/2022 COMPR EHENS WIL METAB OLIC PANEL protein, total 6.7 g/dL 6.1-8. 1 normal Not Available [address], [address], 08/09/2022 12:43:43 08/08/20 22 08/09/2022 COMPR EHENS WIL METAB OLIC PANEL albumin 3.9 g/dL 3.6-5. 1 normal Not Available [address], [address], 08/09/2022 12:43:43 08/08/20 22 08/09/2022 COMPR EHENS WIL METAB OLIC PANEL globulin 2.8 g/dL_ (calc ) 1.9-3. 7 normal Not Available [address], [address], 08/09/2022 12:43:43 08/08/20 22 08/09/2022 COMPR EHENS WIL METAB OLIC PANEL albumin/glob ulin ratio 1.4 (calc ) 1.0-2. 5 normal Not Available [address], [address], 08/09/2022 12:43:43 08/08/20 22 08/09/2022 COMPR EHENS WIL METAB OLIC PANEL bilirubin, total 0.5 mg/dL 0.2-1. 2 normal Not Available [address], [address], 08/09/2022 12:43:43 08/08/20 22 08/09/2022 COMPR EHENS WIL METAB OLIC PANEL alkaline phosphatase 85 U/L 37-153 normal Not Available [address], [address], 08/09/2022 12:43:43 08/08/20 22 08/09/2022 COMPR EHENS WIL METAB OLIC PANEL AST 21 U/L 10-35 normal Not Available [address], [address], 08/09/2022 12:43:43 08/08/20 22 08/09/2022 COMPR EHENS WIL METAB OLIC PANEL ALT 32 U/L 6-29 high Not Available [address], [address], 08/09/2022 12:43:43 08/08/20 22 08/09/2022 LIPID PANEL WITH RATIO S cholesterol, total 137 mg/dL <200 normal Not Available [address], [address], 08/09/2022 12:43:43 08/08/20 22 08/09/2022 LIPID PANEL WITH RATIO S HDL cholesterol 55 mg/dL > or = 50 normal Not Available [address], [address], 08/09/2022 12:43:43 08/08/20 22 08/09/2022 LIPID PANEL WITH RATIO S triglyceride s 141 mg/dL <150 normal Not Available [address], [address], 08/09/2022 12:43:43 08/08/20 22 08/09/2022 LIPID PANEL WITH RATIO S LDL-choleste rol 60 mg/dL _(jake c) normal Refer ence range : <100 Manav able range <100 mg/dL for prima ry preve ntion ; <70 mg/dL for patie nts with CHD or diabe tic patie nts with > or = 2 CHD risk facto rs. LDL-C is now calcu lated using the Linda n-Hop kins calcu latio n, which is a valid ated novel metho d provi ding darron r accur acy than the Fried lakhwinder equat ion in the estim ation of LDL-C . Linda gallardo SS et al. ROCÍO. 2013; 310(1 9): 2061- 2068 (http ://ed ucati on.Qu Shelf.com. com/f aq/FA Q164) Not Available [facility] [address] [place], [address], 08/09/2022 12:43:43 08/08/20 22 08/09/2022 LIPID PANEL WITH RATIO S chol/HDLC ratio 2.5 (calc ) <5.0 normal Not Available [facility] [address] [place], [address], 08/09/2022 12:43:43 08/08/20 22 08/09/2022 LIPID PANEL WITH RATIO S LDL/HDL ratio 1.1 (calc ) Below avera ge Risk: <2.34 [place] ge Risk: 2.35- 4.12 Moder ate Risk: 4.13- 5.56 High Risk: >5.57 Not Available [facility] [address] [place], [address], 08/09/2022 12:43:43 08/08/20 22 08/09/2022 LIPID PANEL WITH RATIO S non HDL cholesterol 82 mg/dL _(jake c) <130 normal For patie nts with diabe wenceslao plus 1 major ASCVD risk facto r, treat ing to a non-H DL-C goal of <100 mg/dL (LDL- C of <70 mg/dL ) is consi michaeld a thera dora combs optio n. Not Available [address], [address], 08/09/2022 12:43:43 08/08/20 22 08/09/2022 TSH+F REE T4 TSH 2.89 mIU/L 0.40-4 .50 normal Not Available [address], [address], 08/09/2022 12:43:42 08/08/2008/09/2022 TSH+F REE T4 T4, free 1.2 NG/dL 0.8-1. 8 normal Not Available [address], [address], 08/09/2022 12:43:42 08/08/20 22 08/09/2022 IRON, TIBC AND SHANEKA TIN PANEL iron, total 86 mcg/d L 45-160 normal Not Available [address], [address], 08/09/2022 12:43:41 08/08/20 22 08/09/2022 IRON, TIBC AND SHANEKA TIN PANEL iron binding capacity 325 mcg/d L_(ca lc) 250-45 0 normal Not Available [address], [address], 08/09/2022 12:43:41 08/08/20 22 08/09/2022 IRON, TIBC AND SHANEKA TIN PANEL % saturation 26 %_(ca lc) 16-45 normal Not Available [address], [address], 08/09/2022 12:43:41 08/08/20 22 08/09/2022 IRON, TIBC AND SHANEKA TIN PANEL ferritin 42 NG/mL 16-288 normal Not Available [address] [place], [address], 08/09/2022 12:43:41 08/20/2008/21/2023 IRON, TIBC AND SHANEKA TIN PANEL iron, total 99 mcg/d L 45-160 normal Not Available [address], [address], 08/21/2023 02:47:13 08/20/2008/21/2023 IRON, TIBC AND SHANEKA TIN PANEL iron binding capacity 367 mcg/d L_(ca lc) 250-45 0 normal Not Available [address], [address], 08/21/2023 02:47:13 08/20/2008/21/2023 IRON, TIBC AND SHANEKA TIN PANEL % saturation 27 %_(ca lc) 16-45 normal Not Available [address], [address], 08/21/2023 02:47:13 08/20/20 23 08/21/2023 IRON, TIBC AND SHANEKA TIN PANEL ferritin 48 NG/mL 16-288 normal Not Available [address], [address], 08/21/2023 02:47:13 08/20/2008/21/2023 TSH+F REE T4 TSH 6.17 mIU/L 0.40-4 .50 high Not Available [address], [address], 08/21/2023 02:47:14 08/20/2008/21/2023 TSH+F REE T4 T4, free 1.2 NG/dL 0.8-1. 8 normal Not Available [address], [address], 08/21/2023 02:47:14 08/20/20 23 08/21/2023 LIPID PANEL WITH RATIO S cholesterol, total 181 mg/dL <200 normal Not Available [facility] [address] [place], [address], 08/21/2023 02:47:15 08/20/20 23 08/21/2023 LIPID PANEL WITH RATIO S HDL cholesterol 51 mg/dL > or = 50 normal Not Available [facility] [address] [address] [place], [address], 08/21/2023 02:47:15 08/20/2008/21/2023 LIPID PANEL WITH RATIO S triglyceride s 246 mg/dL <150 high If a non-f astin g speci men was colle cted, consi hui repea t trigl yceri de testi ng on a fasti ng speci men if clini trish indic ated. Soren lara et al. J. of Clin. Lipid ol. 2015; 9:129 -169. Not Available [address] [address] [place], [address], 08/21/2023 02:47:15 08/20/2008/21/2023 LIPID PANEL WITH RATIO S LDL-choleste rol 93 mg/dL _(jake c) normal Refer ence range : <100 Manav able range <100 mg/dL for prima ry preve ntion ; <70 mg/dL for patie nts with CHD or diabe tic patie nts with > or = 2 CHD risk facto rs. LDL-C is now calcu lated using the Linda n-Hop kins calcu morenita n, which is a valid ated novel rachaelo d melba jean accur acy than the Fried lakhwinder equat ion in the estim ation of LDL-C . Linda gallardo SS et al. ROCÍO. 2013; 310(1 9): 2061- 2068 (http ://ed ucati on.Qu estDi Remotiumos Wallarms. com/f aq/FA Q164) Not Available [facility] [address] [address] [place], [address], 08/21/2023 02:47:15 08/20/20 23 08/21/2023 LIPID PANEL WITH RATIO S chol/HDLC ratio 3.5 (calc ) <5.0 normal Not Available [address], [address], 08/21/2023 02:47:15 08/20/20 23 08/21/2023 LIPID PANEL WITH RATIO S LDL/HDL ratio 1.8 (calc ) Below avera ge Risk: <2.34 [place] ge Risk: 2.35- 4.12 Moder ate Risk: 4.13- 5.56 High Risk: >5.57 Not Available [address], [address], 08/21/2023 02:47:15 08/20/2008/21/2023 LIPID PANEL WITH RATIO S non HDL cholesterol 130 mg/dL _(jake c) <130 high For patie nts with diabe wenceslao plus 1 major ASCVD risk facto r, treat ing to a non-H DL-C goal of <100 mg/dL (LDL- C of <70 mg/dL ) is consi dered a thera peuti c optio n. Not Available [address], [address], 08/21/2023 02:47:15 08/20/2008/21/2023 BASIC METAB OLIC PANEL glucose 98 mg/dL 65-99 normal Fasti ng refer ence inter samson Not Available [address], [address], 08/21/2023 02:47:16 08/20/2008/21/2023 BASIC METAB OLIC PANEL urea nitrogen (BUN) 11 mg/dL 7-25 normal Not Available [address], [address], 08/21/2023 02:47:16 08/20/20 23 08/21/2023 BASIC METAB OLIC PANEL creatinine 0.78 mg/dL 0.50-1 .05 normal Not Available [address] [address] [place], [address], 08/21/2023 02:47:16 08/20/2008/21/2023 BASIC METAB OLIC PANEL eGFR 84 mL/mi n/1.7 3m2 > or = 60 normal Not Available [address], [address], 08/21/2023 02:47:16 08/20/20 23 08/21/2023 BASIC METAB OLIC PANEL BUN/creatini ne ratio SEE NOTE: (calc ) 6-22 Not Repor concha: BUN and Creat inine are withi n refer ence range . Not Available [address], [address], 08/21/2023 02:47:16 08/20/2008/21/2023 BASIC METAB OLIC PANEL sodium 139 mmol/ L 135-14 6 normal Not Available [address], [address], 08/21/2023 02:47:16 08/20/2008/21/2023 BASIC METAB OLIC PANEL potassium 4.9 mmol/ L 3.5-5. 3 normal Not Available [address], [address], 08/21/2023 02:47:16 08/20/2008/21/2023 BASIC METAB OLIC PANEL chloride 103 mmol/ L 98-110 normal Not Available [address] [address] [place], [address], 08/21/2023 02:47:16 08/20/2008/21/2023 BASIC METAB OLIC PANEL carbon dioxide 30 mmol/ L 20-32 normal Not Available [address] [address] [place], [address], 08/21/2023 02:47:16 08/20/2008/21/2023 BASIC METAB OLIC PANEL calcium 10.1 mg/dL 8.6-10 .4 normal Not Available [address] [place], [address], 08/21/2023 02:47:16 08/20/2008/21/2023 HEMOG LOBIN A1C hemoglobin A1C 5.9 %_of_ total _HGB <5.7 high For someo [...] diabe wenceslao for child jennifer. Not Available [address], [address], 08/21/2023 02:47:17 08/20/2008/21/2023 HEPAT IC FUNCT ION PANEL protein, total 7.2 g/dL 6.1-8. 1 normal Not Available [facility] [address] [address] [place], [address], 08/21/2023 02:47:18 08/20/20 23 08/21/2023 HEPAT IC FUNCT ION PANEL albumin 4.2 g/dL 3.6-5. 1 normal Not Available [facility] [address] [place], [address], 08/21/2023 02:47:18 08/20/20 23 08/21/2023 HEPAT IC FUNCT ION PANEL globulin 3.0 g/dL_ (calc ) 1.9-3. 7 normal Not Available [address] [address] [place], [address], 08/21/2023 02:47:18 08/20/2008/21/2023 HEPAT IC FUNCT ION PANEL albumin/glob ulin ratio 1.4 (calc ) 1.0-2. 5 normal Not Available [address] [place], [address], 08/21/2023 02:47:18 08/20/2008/21/2023 HEPAT IC FUNCT ION PANEL bilirubin, total 0.6 mg/dL 0.2-1. 2 normal Not Available [address] [address] [place], [address], 08/21/2023 02:47:18 08/20/2008/21/2023 HEPAT IC FUNCT ION PANEL bilirubin, direct 0.1 mg/dL < or = 0.2 normal Not Available [address] [address] [place], [address], 08/21/2023 02:47:18 08/20/2008/21/2023 HEPAT IC FUNCT ION PANEL bilirubin, indirect 0.5 mg/dL _(jake c) 0.2-1. 2 normal Not Available [address] [address] [place], [address], 08/21/2023 02:47:18 08/20/2008/21/2023 HEPAT IC FUNCT ION PANEL alkaline phosphatase 95 U/L 37-153 normal Not Available [facility] [address] [address] [place], [address], 08/21/2023 02:47:18 08/20/2008/21/2023 HEPAT IC FUNCT ION PANEL AST 28 U/L 10-35 normal Not Available [address] [place], [address], 08/21/2023 02:47:18 08/20/20 23 08/21/2023 HEPAT IC FUNCT ION PANEL ALT 29 U/L 6-29 normal Not Available [address], [address], 08/21/2023 02:47:18 08/20/20 23 08/21/2023 CBC (INCL UDES DIFF/ PLT) white blood cell count 6.7 thous and/u L 3.8-10 .8 normal Not Available [address], [address], 08/21/2023 02:47:19 08/20/2008/21/2023 CBC (INCL UDES DIFF/ PLT) red blood cell count 5.36 sampson on/uL 3.80-5 .10 high Not Available [address], [address], 08/21/2023 02:47:19 08/20/20 23 08/21/2023 CBC (INCL UDES DIFF/ PLT) hemoglobin 13.7 g/dL 11.7-1 5.5 normal Not Available [address], [address], 08/21/2023 02:47:19 08/20/20 23 08/21/2023 CBC (INCL UDES DIFF/ PLT) hematocrit 43.8 % 35.0-4 5.0 normal Not Available [address], [address], 08/21/2023 02:47:19 08/20/2008/21/2023 CBC (INCL UDES DIFF/ PLT) MCV 81.7 fL 80.0-1 00.0 normal Not Available [address], [address], 08/21/2023 02:47:19 08/20/20 23 08/21/2023 CBC (INCL UDES DIFF/ PLT) MCH 25.6 pg 27.0-3 3.0 low Not Available [address], [address], 08/21/2023 02:47:19 08/20/20 23 08/21/2023 CBC (INCL UDES DIFF/ PLT) MCHC 31.3 g/dL 32.0-3 6.0 low Not Available [address], [address], 08/21/2023 02:47:19 08/20/20 23 08/21/2023 CBC (INCL UDES DIFF/ PLT) RDW 13.2 % 11.0-1 5.0 normal Not Available [address], [address], 08/21/2023 02:47:19 08/20/20 23 08/21/2023 CBC (INCL UDES DIFF/ PLT) platelet count 294 thous and/u L 140-40 0 normal Not Available [address], [address], 08/21/2023 02:47:19 08/20/20 23 08/21/2023 CBC (INCL UDES DIFF/ PLT) MPV 11.8 fL 7.5-12 .5 normal Not Available [address], [address], 08/21/2023 02:47:19 08/20/20 23 08/21/2023 CBC (INCL UDES DIFF/ PLT) absolute neutrophils 3504 cells /uL 1500-7 800 normal Not Available [address], [address], 08/21/2023 02:47:19 08/20/20 23 08/21/2023 CBC (INCL UDES DIFF/ PLT) absolute lymphocytes 2258 cells /uL 850-39 00 normal Not Available [address], [address], 08/21/2023 02:47:19 08/20/20 23 08/21/2023 CBC (INCL UDES DIFF/ PLT) absolute monocytes 570 cells /uL 200-95 0 normal Not Available [address], [address], 08/21/2023 02:47:19 08/20/20 23 08/21/2023 CBC (INCL UDES DIFF/ PLT) absolute eosinophils 281 cells /uL 15-500 normal Not Available [address], [address], 08/21/2023 02:47:19 08/20/2008/21/2023 CBC (INCL UDES DIFF/ PLT) absolute basophils 87 cells /uL 0-200 normal Not Available [address], [address], 08/21/2023 02:47:19 08/20/2008/21/2023 CBC (INCL UDES DIFF/ PLT) neutrophils 52.3 % normal Not Available [address], [address], 08/21/2023 02:47:19 08/20/20 23 08/21/2023 CBC (INCL UDES DIFF/ PLT) lymphocytes 33.7 % normal Not Available [address], [address], 08/21/2023 02:47:19 08/20/2008/21/2023 CBC (INCL UDES DIFF/ PLT) monocytes 8.5 % normal Not Available [address], [address], 08/21/2023 02:47:19 08/20/2008/21/2023 CBC (INCL UDES DIFF/ PLT) eosinophils 4.2 % normal Not Available [address], [address], 08/21/2023 02:47:19 08/20/20 23 08/21/2023 CBC (INCL UDES DIFF/ PLT) basophils 1.3 % normal Not Available [address], [address], 08/21/2023 02:47:19 02/12/20 24 02/13/2024 IRON, TIBC AND SHANEKA TIN PANEL iron, total 70 mcg/d L 45-160 normal Not Available [address], [address], 02/13/2024 05:11:28 02/12/20 24 02/13/2024 IRON, TIBC AND SHANEKA TIN PANEL iron binding capacity 350 mcg/d L_(ca lc) 250-45 0 normal Not Available [address], [address], 02/13/2024 05:11:28 02/12/20 24 02/13/2024 IRON, TIBC AND SHANEKA TIN PANEL % saturation 20 %_(ca lc) 16-45 normal Not Available [address], [address], 02/13/2024 05:11:28 02/12/20 24 02/13/2024 IRON, TIBC AND SHANEKA TIN PANEL ferritin 42 NG/mL 16-288 normal Not Available [address], [address], 02/13/2024 05:11:28 02/12/20 24 02/13/2024 TSH+F REE T4 TSH 3.45 mIU/L 0.40-4 .50 normal Not Available [address], [address], 02/13/2024 05:11:28 02/12/20 24 02/13/2024 TSH+F REE T4 T4, free 1.2 NG/dL 0.8-1. 8 normal Not Available [address], [place], [address], 02/13/2024 05:11:28 02/12/20 24 02/13/2024 LIPID PANEL WITH RATIO S cholesterol, total 171 mg/dL <200 normal Not Available [address] [address] [place], [address], 02/13/2024 05:11:29 02/12/20 24 02/13/2024 LIPID PANEL WITH RATIO S HDL cholesterol 54 mg/dL > or = 50 normal Not Available [facility] [address] [address] [place], [address], 02/13/2024 05:11:29 02/12/20 24 02/13/2024 LIPID PANEL WITH RATIO S triglyceride s 140 mg/dL <150 normal Not Available [address], [address], 02/13/2024 05:11:29 02/12/20 24 02/13/2024 LIPID PANEL WITH RATIO S LDL-choleste rol 93 mg/dL _(jake c) normal Refer ence range : <100 Manav able range <100 mg/dL for prima ry preve ntion ; <70 mg/dL for patie nts with CHD or diabe tic patie nts with > or = 2 CHD risk facto rs. LDL-C is now calcu lated using the Linda gallardo-Hop kins obduliau morenita n, which is a valid ated novel leon jean accur acy than the Fried lakhwinder equat ion in the estim ation of LDL-C . Linda gallardo SS et al. ROCÍO. 2013; 310(1 9): 2061- 2068 (http ://ed ucati on.Qu Brittany huertaQingguos. com/f aq/FA Q164) Not Available [facility] [address] [address] [place], [address], 02/13/2024 05:11:29 02/12/20 24 02/13/2024 LIPID PANEL WITH RATIO S chol/HDLC ratio 3.2 (calc ) <5.0 normal Not Available [address] [place], [address], 02/13/2024 05:11:29 02/12/20 24 02/13/2024 LIPID PANEL WITH RATIO S LDL/HDL ratio 1.7 (calc ) Below avera ge Risk: <2.34 Eldon ge Risk: 2.35- 4.12 Moder ate Risk: 4.13- 5.56 High Risk: >5.57 Not Available [address] [place], [address], 02/13/2024 05:11:29 02/12/2002/13/2024 LIPID PANEL WITH RATIO S non HDL cholesterol 117 mg/dL _(jake c) <130 normal For patie nts with diabe wenceslao plus 1 major ASCVD risk facto r, treat ing to a non-H DL-C goal of <100 mg/dL (LDL- C of <70 mg/dL ) is consi dered a thera peuti c optio n. Not Available [address], [address], 02/13/2024 05:11:29 02/12/20 24 02/13/2024 BASIC METAB OLIC PANEL glucose 91 mg/dL 65-99 normal Fasti ng refer ence inter samson Not Available [address] [place], [address], 02/13/2024 05:11:29 02/12/20 24 02/13/2024 BASIC METAB OLIC PANEL urea nitrogen (BUN) 14 mg/dL 7-25 normal Not Available [facility] [address], [address], 02/13/2024 05:11:29 02/12/20 24 02/13/2024 BASIC METAB OLIC PANEL creatinine 0.75 mg/dL 0.50-1 .05 normal Not Available [facility] [address] [place], [address], 02/13/2024 05:11:29 02/12/20 24 02/13/2024 BASIC METAB OLIC PANEL eGFR 87 mL/mi n/1.7 3m2 > or = 60 normal Not Available [address], [address], 02/13/2024 05:11:29 02/12/20 24 02/13/2024 BASIC METAB OLIC PANEL BUN/creatini ne ratio SEE NOTE: (calc ) 6-22 Not Repor concha: BUN and Creat inine are withi n refer ence range . Not Available [address], [address], 02/13/2024 05:11:29 02/12/20 24 02/13/2024 BASIC METAB OLIC PANEL sodium 138 mmol/ L 135-14 6 normal Not Available [address], [address], 02/13/2024 05:11:29 02/12/20 24 02/13/2024 BASIC METAB OLIC PANEL potassium 5.1 mmol/ L 3.5-5. 3 normal Not Available [address], [address], 02/13/2024 05:11:29 02/12/20 24 02/13/2024 BASIC METAB OLIC PANEL chloride 102 mmol/ L 98-110 normal Not Available [address], [address], 02/13/2024 05:11:29 02/12/20 24 02/13/2024 BASIC METAB OLIC PANEL carbon dioxide 29 mmol/ L 20-32 normal Not Available [address], [address], 02/13/2024 05:11:29 02/12/20 24 02/13/2024 BASIC METAB OLIC PANEL calcium 9.8 mg/dL 8.6-10 .4 normal Not Available [facility]. [address], [place], [address], 02/13/2024 05:11:29 02/12/2002/13/2024 HEMOG LOBIN A1C hemoglobin A1C 6.2 %_of_ total _HGB <5.7 high For someo [...] osis of diabe wenceslao for child jennifer. This test was perfo rmed on the Fabiola damaris c503 platf orm. Effec tive , a aguilar e in test platf orms from the [facility] to the Fabiola damaris c503 may have shift ed HbA1c resul ts jacques red to histo rical resul ts. Based on labor atory valid ation testi ng condu cted at [facility] , the [facility] platf orm relat wil to the [employer] platf orm had an avera ge incre ase in HbA1c value of < or = 0.3%. This diffe rence is withi n accep concha varia bilit y estab lishe d by the Natio nal Glyco hemog lobin Stand ardiz ation Progr am. Note that not all indiv idual s will have had a shift in their resul ts and direc t jacques rison s betwe en histo rical and curre nt resul ts for testi ng condu cted on diffe rent platf orms is not recom jair d. Not Available [facility] [address], [address], 02/13/2024 05:11:30 02/12/20 24 02/13/2024 HEPAT IC FUNCT ION PANEL protein, total 6.8 g/dL 6.1-8. 1 normal Not Available [address], [address], 02/13/2024 05:11:30 02/12/20 24 02/13/2024 HEPAT IC FUNCT ION PANEL albumin 4.1 g/dL 3.6-5. 1 normal Not Available [address], [address], 02/13/2024 05:11:30 02/12/20 24 02/13/2024 HEPAT IC FUNCT ION PANEL globulin 2.7 g/dL_ (calc ) 1.9-3. 7 normal Not Available [address], [address], 02/13/2024 05:11:30 02/12/20 24 02/13/2024 HEPAT IC FUNCT ION PANEL albumin/glob ulin ratio 1.5 (calc ) 1.0-2. 5 normal Not Available [address], [address], 02/13/2024 05:11:30 02/12/20 24 02/13/2024 HEPAT IC FUNCT ION PANEL bilirubin, total 0.7 mg/dL 0.2-1. 2 normal Not Available [address], [address], 02/13/2024 05:11:30 02/12/20 24 02/13/2024 HEPAT IC FUNCT ION PANEL bilirubin, direct 0.1 mg/dL < or = 0.2 normal Not Available [address], [address], 02/13/2024 05:11:30 02/12/20 24 02/13/2024 HEPAT IC FUNCT ION PANEL bilirubin, indirect 0.6 mg/dL _(jake c) 0.2-1. 2 normal Not Available [address], [address], 02/13/2024 05:11:30 02/12/20 24 02/13/2024 HEPAT IC FUNCT ION PANEL alkaline phosphatase 94 U/L 37-153 normal Not Available [facility] [employer] [place] [address] [place], [address], 02/13/2024 05:11:30 02/12/20 24 02/13/2024 HEPAT IC FUNCT ION PANEL AST 24 U/L 10-35 normal Not Available [address], [address], 02/13/2024 05:11:30 02/12/20 24 02/13/2024 HEPAT IC FUNCT ION PANEL ALT 38 U/L 6-29 high Not Available [address], [address], 02/13/2024 05:11:30 02/12/20 24 02/13/2024 CBC (INCL UDES DIFF/ PLT) white blood cell count 6.0 thous and/u L 3.8-10 .8 normal Not Available [facility] [address], [address], 02/13/2024 05:11:31 02/12/20 24 02/13/2024 CBC (INCL UDES DIFF/ PLT) red blood cell count 5.07 sampson on/uL 3.80-5 .10 normal Not Available [address], [address], 02/13/2024 05:11:31 02/12/20 24 02/13/2024 CBC (INCL UDES DIFF/ PLT) hemoglobin 12.9 g/dL 11.7-1 5.5 normal Not Available [facility] [address], [address], 02/13/2024 05:11:31 02/12/20 24 02/13/2024 CBC (INCL UDES DIFF/ PLT) hematocrit 41.4 % 35.0-4 5.0 normal Not Available [facility] [address], [address], 02/13/2024 05:11:31 02/12/20 24 02/13/2024 CBC (INCL UDES DIFF/ PLT) MCV 81.7 fL 80.0-1 00.0 normal Not Available [facility] [address], [address], 02/13/2024 05:11:31 02/12/20 24 02/13/2024 CBC (INCL UDES DIFF/ PLT) MCH 25.4 pg 27.0-3 3.0 low Not Available [address], [address], 02/13/2024 05:11:31 02/12/20 24 02/13/2024 CBC (INCL UDES DIFF/ PLT) MCHC 31.2 g/dL 32.0-3 6.0 low Not Available [address], [address], 02/13/2024 05:11:31 02/12/20 24 02/13/2024 CBC (INCL UDES DIFF/ PLT) RDW 13.8 % 11.0-1 5.0 normal Not Available [facility] [address], [address], 02/13/2024 05:11:31 02/12/20 24 02/13/2024 CBC (INCL UDES DIFF/ PLT) platelet count 272 thous and/u L 140-40 0 normal Not Available [facility] [address], [address], 02/13/2024 05:11:31 02/12/2010 0202/13/2024 CBC (INCL UDES DIFF/ PLT) MPV 11.7 fL 7.5-12 .5 normal Not Available [address], [address], 02/13/2024 05:11:31 02/12/20 24 02/13/2024 CBC (INCL UDES DIFF/ PLT) absolute neutrophils 3018 cells /uL 1500-7 800 normal Not Available [address], [address], 02/13/2024 05:11:31 02/12/20 24 02/13/2024 CBC (INCL UDES DIFF/ PLT) absolute lymphocytes 2160 cells /uL 850-39 00 normal Not Available [address], [address], 02/13/2024 05:11:31 02/12/20 24 02/13/2024 CBC (INCL UDES DIFF/ PLT) absolute monocytes 522 cells /uL 200-95 0 normal Not Available [address], [address], 02/13/2024 05:11:31 02/12/20 24 02/13/2024 CBC (INCL UDES DIFF/ PLT) absolute eosinophils 210 cells /uL 15-500 normal Not Available [address], [address], 02/13/2024 05:11:31 02/12/20 24 02/13/2024 CBC (INCL UDES DIFF/ PLT) absolute basophils 90 cells /uL 0-200 normal Not Available [facility] [address], [address], 02/13/2024 05:11:31 02/12/20 24 02/13/2024 CBC (INCL UDES DIFF/ PLT) neutrophils 50.3 % normal Not Available [address], [address], 02/13/2024 05:11:31 02/12/20 24 02/13/2024 CBC (INCL UDES DIFF/ PLT) lymphocytes 36.0 % normal Not Available [address], [address], 02/13/2024 05:11:31 02/12/20 24 02/13/2024 CBC (INCL UDES DIFF/ PLT) monocytes 8.7 % normal Not Available [address], [address], 02/13/2024 05:11:31 02/12/20 24 02/13/2024 CBC (INCL UDES DIFF/ PLT) eosinophils 3.5 % normal Not Available [address], [address], 02/13/2024 05:11:31 02/12/20 24 02/13/2024 CBC (INCL UDES DIFF/ PLT) basophils 1.5 % normal Not Available [address], [address], 02/13/2024 05:11:31 08/12/20 24 08/13/2024 IRON, TIBC AND SHANEKA TIN PANEL iron, total 66 mcg/d L 45-160 normal Not Available [address], [address], 08/13/2024 05:47:36 08/12/2008/13/2024 IRON, TIBC AND SHANEKA TIN PANEL iron binding capacity 347 mcg/d L_(ca lc) 250-45 0 normal Not Available [address], [address], 08/13/2024 05:47:36 08/12/20 24 08/13/2024 IRON, TIBC AND SHANEKA TIN PANEL % saturation 19 %_(ca lc) 16-45 normal Not Available [address], [address], 08/13/2024 05:47:36 08/12/2008/13/2024 IRON, TIBC AND SHANEKA TIN PANEL ferritin 48 NG/mL 16-288 normal Not Available [address], [address], 08/13/2024 05:47:36 08/12/2008/13/2024 TSH+F REE T4 TSH 3.99 mIU/L 0.40-4 .50 normal Not Available [address], [address], 08/13/2024 05:47:38 08/12/2008/13/2024 TSH+F REE T4 T4, free 1.2 NG/dL 0.8-1. 8 normal Not Available [address], [address], 08/13/2024 05:47:38 08/12/2008/13/2024 LIPID PANEL WITH RATIO S cholesterol, total 163 mg/dL <200 normal Not Available [address], [address], 08/13/2024 05:47:39 08/12/2008/13/2024 LIPID PANEL WITH RATIO S HDL cholesterol 56 mg/dL > or = 50 normal Not Available [address], [address], 08/13/2024 05:47:39 08/12/2008/13/2024 LIPID PANEL WITH RATIO S triglyceride s 127 mg/dL <150 normal Not Available [address], [address], 08/13/2024 05:47:39 08/12/2008/13/2024 LIPID PANEL WITH RATIO S LDL-choleste rol 85 mg/dL _(jake c) normal Refer ence range : <100 Manav able range <100 mg/dL for prima ry preve ntion ; <70 mg/dL for patie nts with CHD or diabe tic patie nts with > or = 2 CHD risk facto rs. LDL-C is now calcu lated using the Linda n-Hop kins calcu casimiroaki n, which is a valid ated novel metho d naeli john darron r accur acy than the Fried lakhwinder equat ion in the estim ation of LDL-C . Linda gallardo SS et al. ROCÍO. 2013; 310(1 9): 206- 206 (http ://ed ucati on.Qu estPumpUp. com/f aq/FA Q164) Not Available [facility] [address] [place], [address], 08/13/2024 05:47:39 08/12/2008/13/2024 LIPID PANEL WITH RATIO S chol/HDLC ratio 2.9 (calc ) <5.0 normal Not Available [facility] [address] [address] , [place], [address], 08/13/2024 05:47:39 08/12/2008/13/2024 LIPID PANEL WITH RATIO S LDL/HDL ratio 1.5 (calc ) Below avera ge Risk: <2.34 Eldon ge Risk: 2.35- 4.12 Moder ate Risk: 4.13- 5.56 High Risk: >5.57 Not Available [facility] [address] [place], [address], 08/13/2024 05:47:39 08/12/2008/13/2024 LIPID PANEL WITH RATIO S non HDL cholesterol 107 mg/dL _(jake c) <130 normal For patie nts with diabe wenceslao plus 1 major ASCVD risk facto r, treat ing to a non-H DL-C goal of <100 mg/dL (LDL- C of <70 mg/dL ) is consi michaeld apolinar therapolinar peutcoretta c optio n. Not Available [facility] [address] [place], [address], 08/13/2024 05:47:39 08/12/2008/13/2024 BASIC METAB OLIC PANEL glucose 92 mg/dL 65-99 normal Fasti ng refer ence inter samson Not Available [address], [address], 08/13/2024 05:47:40 08/12/2008/13/2024 BASIC METAB OLIC PANEL urea nitrogen (BUN) 12 mg/dL 7-25 normal Not Available [address], [address], 08/13/2024 05:47:40 08/12/2008/13/2024 BASIC METAB OLIC PANEL creatinine 0.73 mg/dL 0.50-1 .05 normal Not Available [address], [address], 08/13/2024 05:47:40 08/12/2008/13/2024 BASIC METAB OLIC PANEL eGFR 90 mL/mi n/1.7 3m2 > or = 60 normal Not Available [address], [address], 08/13/2024 05:47:40 08/12/2008/13/2024 BASIC METAB OLIC PANEL BUN/creatini ne ratio SEE NOTE: (calc ) 6-22 Not Repor concha: BUN and Creat inine are withi n refer ence range . Not Available [address], [address], 08/13/2024 05:47:40 08/12/2008/13/2024 BASIC METAB OLIC PANEL sodium 139 mmol/ L 135-14 6 normal Not Available [address] [place] [address] [place], [address], 08/13/2024 05:47:40 08/12/2008/13/2024 BASIC METAB OLIC PANEL potassium 4.5 mmol/ L 3.5-5. 3 normal Not Available [facility] [address] [place], [address], 08/13/2024 05:47:40 08/12/2008/13/2024 BASIC METAB OLIC PANEL chloride 103 mmol/ L 98-110 normal Not Available [facility] [place] [address] [place], [address], 08/13/2024 05:47:40 08/12/2008/13/2024 BASIC METAB OLIC PANEL carbon dioxide 30 mmol/ L 20-32 normal Not Available [facility] [address] [place] [address] [place], [address], 08/13/2024 05:47:40 08/12/2008/13/2024 BASIC METAB OLIC PANEL calcium 9.6 mg/dL 8.6-10 .4 normal Not Available [facility] [address] [address] [place], [address], 08/13/2024 05:47:40 08/12/2008/13/2024 HEMOG LOBIN A1C hemoglobin A1C 6.2 %_of_ total _HGB <5.7 high For someo [...] diabe wenceslao for child jennifer. Not Available [facility] [address] [place], [address], 08/13/2024 05:47:41 08/12/2008/13/2024 HEPAT IC FUNCT ION PANEL protein, total 6.7 g/dL 6.1-8. 1 normal Not Available [address], [address], 08/13/2024 05:47:42 08/12/2008/13/2024 HEPAT IC FUNCT ION PANEL albumin 4.1 g/dL 3.6-5. 1 normal Not Available [address], [address], 08/13/2024 05:47:42 08/12/2008/13/2024 HEPAT IC FUNCT ION PANEL globulin 2.6 g/dL_ (calc ) 1.9-3. 7 normal Not Available [address], [address], 08/13/2024 05:47:42 08/12/2008/13/2024 HEPAT IC FUNCT ION PANEL albumin/glob ulin ratio 1.6 (calc ) 1.0-2. 5 normal Not Available [address], [address], 08/13/2024 05:47:42 08/12/2008/13/2024 HEPAT IC FUNCT ION PANEL bilirubin, total 0.5 mg/dL 0.2-1. 2 normal Not Available [address], [address], 08/13/2024 05:47:42 08/12/2008/13/2024 HEPAT IC FUNCT ION PANEL bilirubin, direct 0.1 mg/dL < or = 0.2 normal Not Available [address], [address], 08/13/2024 05:47:42 08/12/2008/13/2024 HEPAT IC FUNCT ION PANEL bilirubin, indirect 0.4 mg/dL _(jake c) 0.2-1. 2 normal Not Available [facility] [place] [address] [place], [address], 08/13/2024 05:47:42 08/12/2008/13/2024 HEPAT IC FUNCT ION PANEL alkaline phosphatase 96 U/L 37-153 normal Not Available [facility] [employer] [place] [address] [place], [address], 08/13/2024 05:47:42 08/12/2008/13/2024 HEPAT IC FUNCT ION PANEL AST 22 U/L 10-35 normal Not Available [address], [address], 08/13/2024 05:47:42 08/12/2008/13/2024 HEPAT IC FUNCT ION PANEL ALT 34 U/L 6-29 high Not Available [facility] [place] [address] [place], [address], 08/13/2024 05:47:42 08/12/2008/13/2024 CBC (INCL UDES DIFF/ PLT) white blood cell count 6.1 thous and/u L 3.8-10 .8 normal Not Available [facility] [place] [address] [place], [address], 08/13/2024 05:47:43 08/12/2008/13/2024 CBC (INCL UDES DIFF/ PLT) red blood cell count 5.02 sampson on/uL 3.80-5 .10 normal Not Available [facility] [address], [address], 08/13/2024 05:47:43 08/12/2008/13/2024 CBC (INCL UDES DIFF/ PLT) hemoglobin 12.8 g/dL 11.7-1 5.5 normal Not Available [facility] [place] [address] [place], [address], 08/13/2024 05:47:43 08/12/2008/13/2024 CBC (INCL UDES DIFF/ PLT) hematocrit 42.3 % 35.0-4 5.0 normal Not Available [address], [address], 08/13/2024 05:47:43 08/12/2008/13/2024 CBC (INCL UDES DIFF/ PLT) MCV 84.3 fL 80.0-1 00.0 normal Not Available [address], [address], 08/13/2024 05:47:43 08/12/2008/13/2024 CBC (INCL UDES DIFF/ PLT) MCH 25.5 pg 27.0-3 3.0 low Not Available [address], [address], 08/13/2024 05:47:43 08/12/2008/13/2024 CBC (INCL UDES DIFF/ PLT) MCHC 30.3 g/dL 32.0-3 6.0 low For adult s, a sligh t decre ase in the calcu lated MCHC value (in the range of 30 to 32 g/dL) is most likel y not clini trish signi fican t; sophia er, it shoul d be inter prete d with cauti on in [facility] n with other red cell milagros eters and the patie nt's clini jake condi tion. Not Available [address], [address], 08/13/2024 05:47:43 08/12/2008/13/2024 CBC (INCL UDES DIFF/ PLT) RDW 13.2 % 11.0-1 5.0 normal Not Available [address], [address], 08/13/2024 05:47:43 08/12/2008/13/2024 CBC (INCL UDES DIFF/ PLT) platelet count 262 thous and/u L 140-40 0 normal Not Available [address], [address], 08/13/2024 05:47:43 08/12/2008/13/2024 CBC (INCL UDES DIFF/ PLT) MPV 12.3 fL 7.5-12 .5 normal Not Available [address], [address], 08/13/2024 05:47:43 08/12/2008/13/2024 CBC (INCL UDES DIFF/ PLT) absolute neutrophils 3343 cells /uL 1500-7 800 normal Not Available [address], [address], 08/13/2024 05:47:43 08/12/2008/13/2024 CBC (INCL UDES DIFF/ PLT) absolute lymphocytes 1964 cells /uL 850-39 00 normal Not Available [address], [address], 08/13/2024 05:47:43 08/12/2008/13/2024 CBC (INCL UDES DIFF/ PLT) absolute monocytes 519 cells /uL 200-95 0 normal Not Available [address], [address], 08/13/2024 05:47:43 08/12/2008/13/2024 CBC (INCL UDES DIFF/ PLT) absolute eosinophils 207 cells /uL 15-500 normal Not Available [facility] [address], [address], 08/13/2024 05:47:43 08/12/2008/13/2024 CBC (INCL UDES DIFF/ PLT) absolute basophils 67 cells /uL 0-200 normal Not Available [facility] [address], [address], 08/13/2024 05:47:43 08/12/2008/13/2024 CBC (INCL UDES DIFF/ PLT) neutrophils 54.8 % normal Not Available [address], [address], 08/13/2024 05:47:43 08/12/2008/13/2024 CBC (INCL UDES DIFF/ PLT) lymphocytes 32.2 % normal Not Available [facility] [address], [address], 08/13/2024 05:47:43 08/12/2008/13/2024 CBC (INCL UDES DIFF/ PLT) monocytes 8.5 % normal Not Available [address], [address], 08/13/2024 05:47:43 08/12/2008/13/2024 CBC (INCL UDES DIFF/ PLT) eosinophils 3.4 % normal Not Available [facility] [address], [address], 08/13/2024 05:47:43 08/12/2008/13/2024 CBC (INCL UDES DIFF/ PLT) basophils 1.1 % normal Not Available [address], [address], 08/13/2024 05:47:43 07/14/20 21 07/13/2021 MAMMO cyndie, digit al, bilat eral No observ ation record ed. [id number] [facility] [address], [place], [address], 12/18/2022 05:05:47 07/16/20 21 07/16/2021 MAMMO cyndie, digit al, bilat eral No observ ation record ed. [id number] [facility] [address], [place], [address], 12/18/2022 05:05:47 08/16/20 21 08/15/2021 NM, myoca rdial perfu maxim scan No observ ation record ed. [id number] [facility] [address], [place], [address], 12/18/2022 05:05:47 09/07/20 21 09/06/2021 DEXA No observ ation record ed. [id number] [facility] [address], [place], [address], 12/18/2022 05:05:47 08/28/20 22 07/17/2022 cyndie CROCKER, digit al, bilat eral No observ ation record ed. [email or web address] [facility] ([facility]) [address], [place], [address], 02/20/2023 12:46:00 06/06/20 23 06/06/2023 colon oscop y proce dure (PROC ) No observ ation record ed. [email or web address] Matthew valente MD [address], [place], [address], 07/07/2023 10:58:46 07/04/20 23 07/04/2023 XR, wrist , 3 or more view No observ ation record ed. [email or web address] [address], [place], [address], 07/07/2023 10:58:22 09/01/20 23 09/01/2023 cyndie CROCKER, digit al, bilat eral No observ ation record ed. [email or web address] Not Available 2023 20:51:59 09/01/20 23 09/01/2023 DEXA No observ ation record ed. [email or web address] [facility] [address], [place], [address], 10/25/2023 20:52:00 Result Notes None recorded. Problems Name Problem SNOMED Code Status Onset Date Resolution Date Notes Provider Name and Address Organization Details Recorded Time Benign essential hypertensi on 0650101 Active 2017 Not Available [facility] 3 04:52:25 Mixed hyperlipid emia 219962638 Active 2020 Not Available [facility] 3 04:52:25 Coronary arterioscl erosis 04805006 Active 2020 Not Available [facility] 3 04:52:25 Microcytos is 332072701 Active 2021 Not Available [facility] 3 04:52:25 Blood glucose outside reference range 623283119 Active 2021 Not Available [facility] 3 04:52:25 Upper respirator y infection 30748657 Active 2021 Not Available [facility] 3 04:52:26 Cough 35038163 Active 2021 Not Available [facility] 3 04:52:25 Bacterial conjunctiv itis 785845879 Active 2021 Not Available [facility] 3 04:52:25 Osteopenia 966402546 Active 2021 Not Available [facility] 3 04:52:25 Disorder of thyroid gland 31154486 Active 2022 ARTI Gloria [address], [place], [address] , [employer] [facility] [employer] 3 12:45:16 Acute urinary tract infection 286351077 Active 2022 ARTI Gloria [address], [place], [address] , [employer] [facility] [employer] 3 12:25:19 Pain of right wrist 7934586379965 00 Active 2022 ARTI Gloria [address], [place], [address] , [employer] [facility] [employer] 11:37:36 Dry cough 11452291 Active 2022 ARTI Gloria [address], [place], [address] , [employer] [facility] [employer] 12:19:23 Problem Notes None recorded. Procedures Surgical History Date Name Laterality Status Provider Name and Address Organization Details Recorded Time 07/18/20 21 Date of Last Pap Smear completed Not Available [facility] 12/18/2022 04:42:45 07/16/20 21 Most Recent Mammogram completed Not Available [facility] 12/18/2022 04:42:46 08/06/20 19 cardiac catheterization completed Not Available [facility] 12/18/2022 04:42:50 03/17/20 18 Most Recent Bone Density completed ARTI Gloria [address], [place], [address], [employer] 02/20/2023 12:43:20 01/16/20 18 Date of Last Colonoscopy completed ARTI Gloria [address], [place], [address], [employer] [facility] 02/20/2023 12:43:29 Back Surgery completed Not Available [facility] 12/18/2022 04:42:50 Removal of ovary(s) completed Not Available [facility] 12/18/2022 04:42:50 [employer] Surgery completed Not Available [facility] 12/18/2022 04:42:50 Imaging Results None recorded. Procedure Notes None recorded. Medical Equipment None Reported. Allergies No known drug allergies Medications Name Sig Start Date Stop Date Status Note LastModified by Organization Details LastModified Time Augmentin 875 mg-125 mg tablet Take 1 tablet every 12 hours by oral route. 07/26 completed Not Available Not Available Not Available azithromyci n 250 mg tablet TAKE 2 TABLETS BY MOUTH ON DAY 1, AND THEN TAKE 1 TABLET BY MOUTH ONCE A DAY ON DAY 2 THROUGH DAY 5 active Not Available Not Available No t Available benzonatate 200 mg capsule TAKE 1 CAPSULE BY MOUTH THREE TIMES DAILY active Not Available Not Available No t Available prednisone 20 mg tablet TAKE 2 TABLETS BY MOUTH ONCE DAILY FOR 5 DAYS active Not Available Not Available No t Available amlodipine 2.5 mg tablet TAKE 1 TABLET BY MOUTH ONCE DAILY active Not Available Not Available No t Available clopidogrel 75 mg tablet 02/06 completed Not Available Not Available Not Available valacyclovi r 500 mg tablet TAKE 2 TABLETS BY MOUTH EVERY 12 HOURS NEEDED FOR 1 DAY active Not Available Not Available No t Available ciprofloxac in 500 mg tablet TAKE 1 TABLET BY MOUTH EVERY 12 HOURS 08/20 completed Not Available Not Available Not Available aspirin 81 mg tablet,ayde yed release Take 1 tablet every day by oral route. 2020 active Not Available Not Available Not Avai lable methocarbam ol 750 mg tablet Take 1 tablet 3 times a day by oral route as needed. 07/27 completed Not Available Not Available Not Available tobramycin 0.3 % eye drops INSTILL 1 DROP INTO each eye BY OPHTHALMI C ROUTE EVERY 4 HOURS while awake x 5-7 days 02/19 completed Not Available Not Available Not Available nitroglycer in 0.[address] 1 TABLET UNDER THE TONGUE EVERY 5 MINUTES NEEDED FOR CHEST PAIN active Not Available Not Available No t Available codeine 10 mg-guaifene sin 100 mg/5 mL oral liquid Take 10 mL every 6-8 hours by oral route as needed. 2022 active Not Available Not Available Not Avai lable cefuroxime axetil 500 mg tablet Take 1 tablet every 12 hours by oral route. active Not Available Not Available No t Available losartan 100 mg tablet Take 1 tablet by mouth once daily active Not Available Not Available No t Available fluticasone propionate 50 mcg/actuati on nasal spray,suspe nsion 07/15 completed Not Available Not Available Not Available metronidazo le 0.75 % topical gel APPLY TO FACE ONCE DAILY active Not Available Not Available No t Available doxycycline hyclate 100 mg tablet TAKE 1 TABLET BY MOUTH ONCE DAILY active Not Available Not Available No t Available rosuvastati n 10 mg tablet TAKE 1 TABLET BY MOUTH ONCE DAILY active Not Available Not Available No t Available rosuvastati n 20 mg tablet TAKE 1 TABLET BY MOUTH ONCE DAILY 07/18 completed Not Available Not Available Not Available rosuvastati n 40 mg tablet TAKE 1 TABLET BY MOUTH ONCE DAILY 07/18 completed Not Available Not Available Not Available nitrofurant oin monohydrate /macrocryst als 100 mg capsule TAKE 1 CAPSULE BY MOUTH EVERY 12 HOURS 08/20 completed Not Available Not Available Not Available losartan 100 mg-hydrochl orothiazide 12.5 mg tablet Take 1 tablet every day by oral route for 60 days. 07/28 completed Not Available Not Available Not Available calcium daily 2017 active Not Available Not Available Not Avai lable Vitamin D3 daily 2017 active Not Available Not Available Not Avai lable PreserVisio n AREDS 2018 active Not Available Not Available Not Avai lable Zostavax (PF) 19,400 unit/0.65 mL subcutaneou s suspension 07/20 completed Not Available Not Available Not Available Brilinta 90 mg tablet TAKE 1 TABLET BY MOUTH TWICE DAILY 07/28 completed Not Available Not Available Not Available Vascepa 1 gram capsule 02/08 completed Not Available Not Available Not Available Fluarix Quad [id number] (PF) 60 mcg (15 mcg x 4)/0.5 mL IM syringe 07/20 completed Not Available Not Available Not Available Shingrix (PF) 50 mcg/0.5 mL intramuscul ar suspension, kit 07/27 completed Not Available Not Available Not Available Flublok Quad (PF) 180 mcg (45 mcg x 4)/0.5 mL IM syringe active Not Available Not Available N ot Available Vitals Date Recorded Body mass index (BMI) Body height Oxygen saturation Heart rate Body temperature Body weight Systolic And Diastolic Provider Name and Address Organization Details Last Updated DateTime 2 27.3 kg/m2 160.02 cm 100 % 72 /min 97.9 [degF] 79155.2 2 g 128/70 mm[Hg] Not Available [facility] 3 04:45:49 Date Recorded Body height Body temperature Body mass index (BMI) Body weight Respiratory rate Oxygen saturation Heart rate Systolic And Diastolic Provider Name and Address Organization Details Last Updated DateTime 3 160.02 cm 97.7 [degF] 27.3 kg/m2 50644.2 2 g 16 /min 97 % 105 /min 128/72 mm[Hg] BRANDEN Mclean [place] - [place] [employer] [facility] 3 12:17:13 Date Recorded Body mass index (BMI) Body height Oxygen saturation Heart rate Body temperature Body weight Systolic And Diastolic Provider Name and Address Organization Details Last Updated DateTime 1 28 kg/m2 160.02 cm 95 % 128 /min 97.8 [degF] 78925.8 8 g 120/80 mm[Hg] Not Available [facility] 3 04:45:49 Date Recorded Body mass index (BMI) Body height Oxygen saturation Heart rate Respiratory rate Body temperature Body weight Systolic And Diastolic Provider Name and Address Organization Details Last Updated DateTime 2 27.5 kg/m2 160.02 cm 99 % 66 /min 16 /min 97.6 [degF] 32865.8 2 g 124/64 mm[Hg] Not Available [facility] 3 04:45:49 Date Recorded Body mass index (BMI) Provider Name and Address Organization Details Last Updated DateTime 08/21/2023 31.4 kg/m2 ARTI Gloria [address] [place] [address], [facility] [address], [place], [address], [facility] [employer] [facility] 09/18/2023 23:19:39 Date Recorded Body height Body weight Body temperature Heart rate Oxygen saturation Systolic And Diastolic Provider Name and Address Organization Details Last Updated DateTime 3 160.02 cm 47412.8 5 g 97.8 [degF] 79 /min 96 % 122/66 mm[Hg] Juana Mac RN [facility] [employer] [facility] 3 12:32:02 Social History Question Answer Notes LastModified by Organizat ion Details LastModified Time Tobacco Smoking Status Never Smoker Not Available [facility] 12/18/2022 04:30:37 What Is Your Level Of Caffeine Consumption? Occasional [id number].[id number] Information not available 12/18/2022 How Much Tobacco Do You Chew? None MIGRATION.[id number] 1625 Information not available 12/18/2022 In The 14 Days Before Symptom Onset, Have You Had Close Contact With A Laboratory-confirm ed COVID-19 While That Case Was Ill? No MIGRATION.[id number] 0152 Information not available 12/18/2022 In The 14 Days Before Symptom Onset, Have You Had Close Contact With A Person Who Is Under Investigation For COVID-19 While That Person Was Ill? No MIGRATION.[id number] 3460 Information not available 12/18/2022 What Type Of Diet Are You Following? REGULAR MIGRATION.957686 8741 Information not available 12/18/2022 Which Illicit Or Recreational Drugs Have You Used? None MIGRATION.[id number] 0339 Information not available 12/18/2022 Have There Been Any Changes To Your Family Or Social Situation? No MIGRATION.173291 0523 Information not available 12/18/2022 Are There Any Guns Present In Your Home? Yes MIGRATION.010135 9724 Information not available 12/18/2022 Do You Use Insect Repellent Routinely? No MIGRATION.438460 4301 Information not available 12/18/2022 What Was The Date Of Your Most Recent Tobacco Screening? 02/02/2021 MIGRATION.410754 9290 Information not available 12/18/2022 What Is Your Relationship Status? MIGRATION.930405 1683 Information not available 12/18/2022 Do You Use Your Seat Belt Or Car Seat Routinely? Yes MIGRATION.678854 0463 Information not available 12/18/2022 Do You Have Smoke And Carbon Monoxide Detectors In Your Home? Yes MIGRATION.077222 2504 Information not available 12/18/2022 At What Age Did You Start Smoking Tobacco? 1 MIGRATION.461764 3604 Information not available 12/18/2022 How Much Tobacco Do You Smoke? No MIGRATION.896350 2839 Information not available 12/18/2022 Do You Use Sunscreen Routinely? Yes MIGRATION.911778 3560 Information not available 12/18/2022 How Many Years Have You Smoked Tobacco? 0 MIGRATION.545123 0110 Information not available 12/18/2022 Have You Recently Traveled Abroad? No MIGRATION.475168 9181 Information not available 12/18/2022 Do You Have Any Dietary Restrictions? No MIGRATION.597352 0540 Information not available 12/18/2022 Sex: Unknown Functional Status Question Answer Note LastModified by Organizat ion Details LastModified Time Do you use any illicit or recreational drugs? No MIGRATION.540793 1007 Information not available 12/18/2022 Do you or have you ever used any other forms of tobacco or nicotine? No MIGRATION.372858 1397 Information not available 12/18/2022 What is your level of alcohol consumption? Occasional MIGRATION.428702 3634 Information not available 12/18/2022 Do you or have you ever used smokeless tobacco? Never used smokeless tobacco MIGRATION.041348 1899 Information not available 12/18/2022 Are you currently employed? No Information not available 02/19/2023 Do you have transportation difficulties? No MIGRATION.038862 5402 Information not available 12/18/2022 Do you have difficulty doing errands alone? No MIGRATION.120085 3350 Information not available 12/18/2022 Are you able to care for yourself independently? Yes MIGRATION.908666 2975 Information not available 12/18/2022 What is your occupation? Retired MIGRATION.432883 3852 Information not available 12/18/2022 Do you have difficulty dressing, bathing, grooming, or toileting? No MIGRATION.699371 4264 Information not available 12/18/2022 Do you or have you ever used e-cigarettes or vape? Never used electronic cigarettes MIGRATION.804186 1525 Information not available 12/18/2022 What is your exercise level? Occasional MIGRATION.862407 1967 Information not available 12/18/2022 Mental Status None recorded. Family History Relationship Description Onset Age of this Age Resolved Age Notes LastModified by Organization Details LastModified Time Father Heart disease [id number] Not available 12/18/2022 04:42:53 Unspecified Relation Myocardial infarction MIGRATION.586 [id number] Not available 12/18/2022 04:42:53 Brother Hypertensive disorder MIGRATION.[id number] Not available 12/18/2022 04:42:53 Medical History Condition Response CARDIAC ARRHYTHMIA Y CORONARY ARTERY DISEASE (CAD) Y BACK / NECK PROBLEMS Y HYPERTENSION Y HIGH CHOLESTEROL / HYPERLIPIDEMIA Y Gynecological History Statement/Question Response How many live births 2 Abnormal Pap Y Date of Last Mammogram 07/16/2021 Date of Last Colonoscopy 01/15/2018 Most Recent Bone Density 03/17/2018 Date of LMP Sexually Active? Y Menses Monthly N Date of Last Pap 07/19/2020 Date of Last Pap Smear 07/18/2021 Most Recent Mammogram 07/16/2021 Current Control Method Tubal Ligat ion Breast Problems no Obstetrics History GPAL:G 2 P 0 0 0 2 Type Value Living 2 Total 2 Immunizations Vaccine Type Date Status Note Provider Nam e and Address Organization Details Recorded Time COVID-19, mRNA, LNP-S, PF, 30 mcg/0.3 mL dose 1 completed Not Available [facility] 12/18/2022 05:04:55 COVID-19, mRNA, LNP-S, PF, 30 mcg/0.3 mL dose 1 completed Not Available [facility] 12/18/2022 05:04:56 Influenza, split virus, quadrivalent, preservative 0 completed Not Available [facility] 12/18/2022 05:04:56 zoster, unspecified formulation 0 completed Not Available [facility] 12/18/2022 05:04:56 zoster live 7 completed Not Available [facility] 12/18/2022 05:04:56 tetanus toxoid, unspecified formulation 1 completed Not Available [facility] 12/18/2022 05:04:56 Tdap 2 completed Not Available [facility] 12/18/2022 05:04:56 Influenza, split virus, quadrivalent, PF 9 completed Not Available [facility] 12/18/2022 05:04:56 Influenza, split virus, quadrivalent, PF 8 completed Not Available [facility] 12/18/2022 05:04:56 Past Encounters Encounter ID Performer Location Encounter Start Date Encounter Closed Date Diagnosis/Indication Diagnosis SNOMED-CT Code Diagnosis ICD10 Code Diagnosis IMO Codes Diagnosis Note [id number] ARTI Gloria [facility] Internal [facility] [place] [address] [address], [address] [place] [address] 02/02/2021 00:00:00 02/16/2021 18:43:23 [id number] [facility] ic_Gateway _ATHENA_M IGRATION_ DEFAULT_1 _1 , 07/18/2021 00:00:00 07/18/2021 11:01:02 [id number] ARTI Gloria [facility] Internal [facility] [place] [address] [place] [address] [place] [address] 08/03/2021 00:00:00 08/19/2021 10:09:29 [id number] Uriel Solares MD [facility] Internal [facility] [place] [address] [place] [address] [place] [address] 02/08/2022 00:00:00 02/15/2022 17:43:18 [id number] ARTI Gloria [facility] Internal [facility] [place] [address] [place] [address] 08/16/2022 00:00:00 08/16/2022 11:07:03 [id number] ARTI Gloria [facility] Internal Med [place] [address] [place] [address] 02/20/2023 12:11:04 02/20/2023 13:04:06 Benign essential hypertension 9250102 I10 stable on losartan 100mg daily and amlodipine 2.5mg daily. Mixed hyperlipidemia 267 989200 E78.2 stable on rosuvastat in 10mg daily. Triglyceri celestine did spike up to 200 range. Monitor diet closer and increase exercise. Blood gluc ose outside reference range 371331285 R73.09 stable 5.8% a1c. following. repeat labs in jul Microcytosis 648510081 R 71.8 repeat CBC and iron studies in Jul. no Upper GI symptoms or reflux and colonoscop y ordered. Osteopenia 196625305 M85 .80 DEXA due in Aug. History of polyp of colon 554080676 Z86.010 Last scope [address] Matthew Osorio at [facility]. will refer to him locally in [place] office. Thyroid di sorder screening 632866824 Z13.29 thyroid lab screening due in [id number] ARTI Gloria [facility] Internal [facility] [place] [address] [place] [address] 08/21/2023 12:22:18 08/21/2023 13:03:12 Benign essential hypertension 8343179 I10 stable on losartan 100mg daily and amlodipine 2.5mg daily. Mixed hyperlipidemia 267 316668 E78.2 stable on rosuvastat in 10mg daily. Triglyceri celestine did spike up to 200 range. Monitor diet closer and increase exercise. Blood gluc ose outside reference range 012941921 R73.09 stable 5.9% a1c. following. Microcytosis 473946066 R 71.8 repeat CBC and iron studies in january. Osteopenia 716553573 M85 .80 DEXA due UTD Thyroid di sorder screening 397146925 Z13.29 thyroid lab screening due in january Upper resp iratory infection 33363580 J06.9 start zpack and prednisone 40mg daily x 5 days Cough 71355986 R05.9 Rx for virtussin AC as directed Health Concerns Section Related Observation LastModified by Organization Detai ls LastModified Time None Recorded Concern Status LastModified by Organization Details LastModified Time None Recorded Advance Directives Directive None Recorded Payers Insurance Date Sequence Insurance Name Policy Number Policy Whitehead Covered Member ID Whitehead Member ID Guarantor Name 09/19/2023 1 [facility] (MEDICARE REPLACEMENT/A DVANTAGE - PPO) [id number] Lauren Baldwin [id number] Lauren Baldwin 02/19/2023 1 [facility] (MEDICARE REPLACEMENT/A DVANTAGE - PPO) [id number] Lauren Baldwin [id number] Lauren Baldwin Notes Date Note Type Note Provider Name and Address Organization Details Recorded Time 3 text/html HyperlipidemiaReported by PatientHPIFor duration, patient reportschronic. For risk factors, patient reportshypertension. For control, patient reportsusually well controlled,improving, andat goal. For current therapy, patient reportscurrently taking: (rosuvastatin 10mg). For compliance, patient reportscompliant,compliant with diet, andexercises. For complications, patient reportsno coronary artery disease,no peripheral artery disease, andno cardiovascular disease. HypertensionReported by PatientHPIFor duration, patient reportshas noted for years. For onset/timing, patient reportsbetter. For alleviating factors, patient reportsmedication. For associated symptoms, patient reportsno shortness of breath,no fatigue,no palpitations,no decline in exercise capacity, andno snoring. ARTI Gloria [address] [place] [address], [facility] [address], [place], [address], [facility] [employer] 02/20/2023 15:50:01 3 text/html HyperlipidemiaReported by PatientHPIFor duration, patient reportschronic. For risk factors, patient reportshypertension. For control, patient reportsusually well controlled,improving, andat goal. For current therapy, patient reportscurrently taking: (rosuvastatin 10mg). For compliance, patient reportscompliant,compliant with diet, andexercises. For complications, patient reportsno coronary artery disease,no peripheral artery disease, andno cardiovascular disease. HypertensionReported by PatientHPIFor duration, patient reportshas noted for years. For onset/timing, patient reportsbetter. For alleviating factors, patient reportsmedication. For associated symptoms, patient reportsno shortness of breath,no fatigue,no palpitations,no decline in exercise capacity, andno snoring. pt also c/o cont cough ARTI Gloria [address] [facility], [facility] [address], [place], [address], [facility] [employer] 09/18/2023 23:21:49 OBGyn Episode No OBEpisode recorded.
--- OUTSIDE RECORDS SUMMARY | 2025-10-11 07:22 | XMS_ITS | Encounter Summary ---
Author Organization [facility] Address [address] [place] [address] Care Team Providers Care Compliance Representative Name Role Phone Unavailable Primary Care Provider Unavailabl e Encounter Details Date Type Department Care Team (Late st Contact Info) Description 06/02/2023 Lab Requisition [facility] - DermPath Lab [address] [facility] [facility] [address] [place] [address] Julieth Muir MD [address] [facility] [address] [place] [address] Social History Tobacco Use Types Packs/Day Years Used Date Smoking Tobacco: Never Assessed Comments Unknown Sex and Gender Information Value Date Recorded Sex Assigned at Not on file Legal Sex Female 3:50 PM CDT Gender Identity Not on file Sexual Orientation Not on file documented as of this encounter Plan of Treatment Not on file documented as of this encounter Procedures Procedure Name Priority Date/Time Associated Diagnosis Comments DERMATOPATHOLOGY Routine 06/02/2023 3:38 PM CDT documented in this encounter Results * DERMATOPATHOLOGY (06/02/2023 3:38 PM CDT) Case Report Dermatopathology Report Case: [id number] Authorizing Provider: Julieth Muir MD Collected: 06/02/2023 03:38 PM Ordering Location: [facility] Lab Received: 06/03/2023 01:58 PM Pathologist: Roxane Epps MD Specimen: Skin, left back 3 2:14 PM CDT DERMATOPATHOLOGY LABORATORY Final Diagnosis Specimen A. SKIN, left back: LENTIGINOUS MELANOCYTIC NEVUS, JUNCTIONAL TYPE, IRRITATED (D22.5) 3 2:14 PM CDT DERMATOPATHOLOGY LABORATORY at 1414 CDT Clinical History NEVUS; MELANOMA; IRREGULAR COLOR; BROWN PAPULE 3 2:14 PM CDT DERMATOPATHOLOGY LABORATORY Gross Description Specimen A: Received is one formalin filled container labeled with the patient's name and designated left back. The specimen consists of a shave biopsy measuring 6x5x1 mm. Jar 0. 3 2:14 PM CDT DERMATOPATHOLOGY LABORATORY Microscopic Description Specimen A. SKIN, left back: This is a junctional nevus. There is melanin pigment in the stratum corneum. There is a lentiginous proliferation of melanocytes between nests of cells along the dermal-epidermal junction. There is underlying fibroplasia of the papillary dermis. (Junctional Soy's Nevus) 3 2:14 PM CDT DERMATOPATHOLOGY LABORATORY Disclaimer An external and internal positive and negative controls are appropriate for the histochemical, immunohistochemical and immunofluorescence stain(s) in this case (if any), except where stated explicitly. The performance characteristics of the stain(s) cited in this report were developed and its performance characteristic determined by the Dermatopathology Laboratory at [facility], directed by Dr. Nhi Henderson. These tests need not be, and therefore are not, approved by the [place] Food and Drug Administration. The tests are used for clinical purposes. Billing Codes Specimen Charges Stain Charges 11278 1 3 2:14 PM CDT DERMATOPATHOLOGY LABORATORY Embedded Images 3 2:14 PM CDT DERMATOPATHOLOGY LABORATORY Pathology/Cytolo gy TISSUE SPECIMEN FROM SKIN / Unknown 06/02/2023 3:38 PM CDT 06/03/2023 1:58 PM CDT us Julieth Muir MD LAB - PATHOLOGY/CYTOLOGY ORD ERABLES Final Result DERMATOPATHOLOGY LABORATORY [facility] - Department of Dermatology [address] [phone] documented in this encounter Visit Diagnoses Not on filedocumented in this encounter
--- OUTSIDE RECORDS SUMMARY | 2025-10-11 07:22 | XMS_ITS | Data Portability ---
Author Organization [facility] Address [address] [facility] [place] [address] Care Team Providers Care Financial Accounting Analyst Name Role Phone IRENE DOTSON Primary Care Provider Unavailab le Assessment Encounter Date Assessment Date Assessment LastModified by Organization Details LastModified Time 08/20/2024 08/20/2024 06/06/2023 colonoscopy showed internal hemorrhoids repeat in 5 years August of 2023 DEXA scan due 2024 eye exam : UTD dental exam: every 6 months labs UTD reviewed today. Not available 08/20/2024 10:31:12 02/18/2025 02/18/2025 06/06/2023 colonoscopy showed internal hemorrhoids repeat in 5 years August of 2023 DEXA scan due 2024 eye exam : UTD dental exam: every 6 months labs UTD reviewed today. Not available 02/18/2025 10:27:22 08/29/2025 08/29/2025 06/06/2023 colonoscopy showed internal hemorrhoids [...] Lab HbA1c (hemoglob in A1c), blood 2024 04/27/2 026 [facility], [address], [place], [address], 08/29/2025 10:39:19 CBC w/ auto diff 2024 026 [facility], [address], [place], [address], 08/29/2025 10:39:19 hepatic function panel, serum 2024 026 [facility], [address], [place], [address], 08/29/2025 10:39:19 BMP, serum or plasma 2024 [facility], [address], [place], [address], 08/29/2025 10:39:19 TSH + free T4, serum 2024 026 [facility], [address], [place], [address], 08/29/2025 10:39:19 lipid panel, serum 2024 026 [facility], [address], [place], [address], 08/29/2025 10:39:20 HbA1c (hemoglob in A1c), blood 2024 025 JIMMY [facility], [address], [place], [address], 08/16/2025 07:32:58 hepatic function panel, serum 2024 025 JIMMY [facility], [address], [place], [address], 08/16/2025 07:32:57 BMP, serum or plasma 2024 025 JIMMY [facility], [address], [place], [address], 08/16/2025 07:32:57 lipid panel, serum 2024 025 JIMMY [facility], [address], [place], [address], 08/16/2025 07:32:56 CBC w/ auto diff 2024 025 JIMMY [facility], [address], [place], [address], 08/16/2025 07:32:58 iron + TIBC + ferritin, serum 2024 JIMMY [facility], [address], [place], [address], 08/16/2025 07:32:56 abo group + rh type, blood 2023 025 [email or web address] [facility], [address], [place], [address], 08/09/2025 12:49:16 HbA1c (hemoglob in A1c), blood 2023 025 [email or web address] [facility], [address], [place], [address], 08/09/2025 12:49:16 CBC w/ auto diff 2023 025 [email or web address] [facility], [address], [place], [address], 08/09/2025 12:49:15 hepatic function panel, serum 2023 025 [email or web address] [facility], [address], [place], [address], 08/09/2025 12:49:15 BMP, serum or plasma 2023 025 [email or web address] [facility], [address], [place], [address], 08/09/2025 12:49:16 TSH + free T4, serum 2023 025 [email or web address] [facility], [address], [place], [address], 08/09/2025 12:49:16 lipid panel, serum 2023 025 [email or web address] [facility], [address], [place], [address], 08/09/2025 12:49:15 HbA1c (hemoglob in A1c), blood 2023 024 [email or web address] [facility], [address] [place], [address], 09/17/2024 10:37:01 CBC w/ auto diff 2023 024 [email or web address] [facility], [address], [place], [address], 09/17/2024 10:37:01 hepatic function panel, serum 2023 024 [email or web address] [facility], [address] [place], [address], 09/17/2024 10:37:01 BMP, serum or plasma 2023 024 [email or web address] [facility], [place], [address], 09/17/2024 10:37:01 TSH + free T4, serum 2023 024 [email or web address] [facility], [place], [address], 09/17/2024 10:37:01 lipid panel, serum 2023 024 [email or web address] [facility], [address], [place], [address], 09/17/2024 10:37:01 Referral vestibula r therapy referral - Schedule with Titi Ferguson. 2023 024 [email or web address] [facility], [address], [place], [address], 03/18/2024 12:57:23 Procedures None recorded. Surgeries None recorded. Imaging MAMMO, screening , digital, bilateral 2024 025 [facility], [address], [address], [place], [address], 10/05/2025 09:13:50 MAMMO, screening , digital, bilateral 2023 024 [facility] (Mamm[facility]) , [address], [place], [address], 10/05/2024 10:59:40 MRI, lumbar spine, w/o contrast 2023 024 [email or web address], [address] [facility], [place], [address], 02/26/2024 09:24:35 RF, upper gastroint estinal tract, w/ contrast PO 2023 024 [facility], [address] [place] [address] , [address], [place], [address], 03/30/2024 01:45:47 XR, chest, 2 view 2023 024 [facility], [facility], [address], [place], [address], 03/23/2024 18:13:47 Medication Orders None recorded. Patient TargetsNo targets recorded. Patient Instructions Encounter Date Encounter Id Patient Instructions Last Modified By Organization Details Last Modified Time 02/19/2024 [id number] sciatica: exercises Not available 02/19/2024 13:18:05 piriformis syndrome: exercises Not available 02/19/2024 13:18:05 calvin maneuver a t home for vertigo: exercises Not available 02/19/2024 13:18:06 08/20/2024 [id number] A healthy lifestyle: care instructions Not available 08/20/2024 10:35:09 02/18/2025 [id number] A healthy lifestyle: care instructions Not available 02/18/2025 10:28:43 Reason for Referral Vestibular Therapy Referral for Benign paroxysmal positional vertigo wax and wane vertigo Schedule with Titi Ferguson. Referring Physician: Irene Dotson, Internal Medicine, Encounter Date: 02/19/2024 Results Created Date Observation Date Name Description Value Unit Range Abnormal Flag Note LastModifiedBy Organization Detail LastModifiedTime 02/12/20 24 02/13/2024 HbA1c (hemo globi n A1c), blood HbA1C (hemoglobin A1C), blood 6.2 %_of_ total _HGB text: <5.7 high For josh patiño witho ut known diabe wenceslao, a hemog [...] c503 platf orm. Effec tive , a lauren schroeder in test platf orms from the [facility] to the Fabiola damaris c503 may have shift ed HbA1c resul ts jacques red to histo rical resul ts. Based on labor atory valid ation testi ng [facility] , the [facility] platf orm relat yulissa to the [facility] t platf orm had an avera ge incre [...] is not recom jair d. Not Available Not Available 08/09/2025 17:00:27 02/12/20 24 02/13/2024 TSH + free T4, serum TSH, serum, reflex free T4 3.45 mIU/L text: 0.40-4 .50 Not Available Not Available 08/09/2025 17:00:27 02/12/20 24 02/13/2024 TSH + free T4, serum T4, free, serum 1.2 NG/dL text: 0.8-1. 8 Not Available Not Available 08/09/2025 17:00:27 08/12/20 24 08/13/2024 HbA1c (hemo globi n A1c), blood HbA1C (hemoglobin A1C), blood 6.2 %_of_ total _HGB text: <5.7 high For someo ne witho ut [...] Curre ntly, no conse nsus exist s myra lopez use of hemog lobin A1c for diagn osis of diabe wenceslao for child jennifer. Not Available Not Available 08/09/2025 17:00:28 08/12/2008/13/2024 TSH + free T4, serum TSH, serum, reflex free T4 3.99 mIU/L text: 0.40-4 .50 Not Available Not Available 08/09/2025 17:00:27 08/12/2008/13/2024 TSH + free T4, serum T4, free, serum 1.2 NG/dL text: 0.8-1. 8 Not Available Not Available 08/09/2025 17:00:27 08/15/2008/16/2025 IRON, TIBC AND SHANEKA TIN PANEL iron, total 62 mcg/d L 45-160 normal Not Available [address] [place], [address], 08/16/2025 07:32:56 08/15/2008/16/2025 IRON, TIBC AND SHANEKA TIN PANEL iron binding capacity 343 mcg/d L_(ca lc) 250-45 0 normal Not Available [address] [place], [address], 08/16/2025 07:32:56 08/15/2008/16/2025 IRON, TIBC AND SHANEKA TIN PANEL % saturation 18 %_(ca lc) 16-45 normal Not Available [address] [address] [place], [address], 08/16/2025 07:32:56 08/15/2008/16/2025 IRON, TIBC AND SHANEKA TIN PANEL ferritin 37 NG/mL 16-288 normal Not Available [facility] [address] [address] [place], [address], 08/16/2025 07:32:56 08/15/2008/16/2025 LIPID PANEL WITH RATIO S cholesterol, total 155 mg/dL <200 normal Not Available [address] [address] [place], [address], 08/16/2025 07:32:56 08/15/2008/16/2025 LIPID PANEL WITH RATIO S HDL cholesterol 56 mg/dL > or = 50 normal Not Available [facility] [address] [address] [place], [address], 08/16/2025 07:32:56 08/15/2008/16/2025 LIPID PANEL WITH RATIO S triglyceride s 145 mg/dL <150 normal Not Available [facility] [address] [address] [place], [address], 08/16/2025 07:32:56 08/15/2008/16/2025 LIPID PANEL WITH RATIO [...] a valid ated novel rachaelo d melba lopez darron r accur acy than the Fried lakhwinder equat ion in the estim ation of LDL-C . Linda gallardo SS et al. ROCÍO. 2013; 310(1 9): 2061- 2068 (http ://ed ucati on.Qu Brittany vargas tics. com/f aq/FA Q164) Not Available [facility] [address] [place], [address], 08/16/2025 07:32:56 08/15/2008/16/2025 LIPID PANEL WITH RATIO S chol/HDLC ratio 2.8 (calc ) <5.0 normal Not Available [facility] [address] [place], [address], 08/16/2025 07:32:56 08/15/2008/16/2025 LIPID PANEL WITH RATIO S LDL/HDL ratio 1.4 (calc ) Below avera ge Risk: <2.34 [place] ge Risk: 2.35- 4.12 Moder ate Risk: 4.13- 5.56 High Risk: >5.57 Not Available [address], [address], 08/16/2025 07:32:56 08/15/2008/16/2025 LIPID PANEL WITH RATIO S non HDL cholesterol 99 mg/dL _(jake c) <130 normal For patie nts with diabe wenceslao plus 1 major ASCVD risk facto r, treat ing to a non-H DL-C goal of <100 mg/dL (LDL- C of <70 mg/dL ) is consi michaeld a thera peuti c optio n. Not Available [address] [place], [address], 08/16/2025 07:32:56 08/15/2008/16/2025 BASIC METAB OLIC PANEL glucose 85 mg/dL 65-99 normal Fasti ng refer ence inter samson Not Available [address] [address] [place], [address], 08/16/2025 07:32:57 08/15/2008/16/2025 BASIC METAB OLIC PANEL urea nitrogen (BUN) 15 mg/dL 7-25 normal Not Available [address] [place], [address], 08/16/2025 07:32:57 08/15/2008/16/2025 BASIC METAB OLIC PANEL creatinine 0.82 mg/dL 0.50-1 .05 normal Not Available [address] [address] [place], [address], 08/16/2025 07:32:57 08/15/2008/16/2025 BASIC METAB OLIC PANEL eGFR 78 mL/mi n/1.7 3m2 > or = 60 normal Not Available [address] [address] [place], [address], 08/16/2025 07:32:57 08/15/2008/16/2025 BASIC METAB OLIC PANEL BUN/creatini ne ratio SEE NOTE: (calc ) 6-22 Not Repor concha: BUN and Creat inine are withi n refer ence range . Not Available [address] [address] [place], [address], 08/16/2025 07:32:57 08/15/2008/16/2025 BASIC METAB OLIC PANEL sodium 137 mmol/ L 135-14 6 normal Not Available [address] [address] [place], [address], 08/16/2025 07:32:57 08/15/2008/16/2025 BASIC METAB OLIC PANEL potassium 4.8 mmol/ L 3.5-5. 3 normal Not Available [address] [address] [place], [address], 08/16/2025 07:32:57 08/15/2008/16/2025 BASIC METAB OLIC PANEL chloride 102 mmol/ L 98-110 normal Not Available [address] [address] [place], [address], 08/16/2025 07:32:57 08/15/2008/16/2025 BASIC METAB OLIC PANEL carbon dioxide 31 mmol/ L 20-32 normal Not Available [address] [address] [place], [address], 08/16/2025 07:32:57 08/15/2008/16/2025 BASIC METAB OLIC PANEL calcium 9.7 mg/dL 8.6-10 .4 normal Not Available [address] [address] [place], [address], 08/16/2025 07:32:57 08/15/2008/16/2025 HEPAT IC FUNCT ION PANEL protein, total 6.9 g/dL 6.1-8. 1 normal Not Available [address], [address], 08/16/2025 07:32:57 08/15/2008/16/2025 HEPAT IC FUNCT ION PANEL albumin 4.1 g/dL 3.6-5. 1 normal Not Available [address], [address], 08/16/2025 07:32:57 08/15/2008/16/2025 HEPAT IC FUNCT ION PANEL globulin 2.8 g/dL_ (calc ) 1.9-3. 7 normal Not Available [address], [address], 08/16/2025 07:32:57 08/15/2008/16/2025 HEPAT IC FUNCT ION PANEL albumin/glob ulin ratio 1.5 (calc ) 1.0-2. 5 normal Not Available [address], [address], 08/16/2025 07:32:57 08/15/2008/16/2025 HEPAT IC FUNCT ION PANEL bilirubin, total 0.4 mg/dL 0.2-1. 2 normal Not Available [address], [address], 08/16/2025 07:32:57 08/15/2008/16/2025 HEPAT IC FUNCT ION PANEL bilirubin, direct 0.1 mg/dL < or = 0.2 normal Not Available [address], [address], 08/16/2025 07:32:57 08/15/2008/16/2025 HEPAT IC FUNCT ION PANEL bilirubin, indirect 0.3 mg/dL _(jake c) 0.2-1. 2 normal Not Available [address], [address], 08/16/2025 07:32:57 08/15/2008/16/2025 HEPAT IC FUNCT ION PANEL alkaline phosphatase 94 U/L 37-153 normal Not Available [facility] [address], [address], 08/16/2025 07:32:57 08/15/2008/16/2025 HEPAT IC FUNCT ION PANEL AST 18 U/L 10-35 normal Not Available [address], [address], 08/16/2025 07:32:57 08/15/2008/16/2025 HEPAT IC FUNCT ION PANEL ALT 25 U/L 6-29 normal Not Available [address], [address], 08/16/2025 07:32:57 08/15/2008/16/2025 CBC (INCL UDES DIFF/ PLT) white blood cell count 6.3 thous and/u L 3.8-10 .8 normal Not Available [address], [address], 08/16/2025 07:32:58 08/15/2008/16/2025 CBC (INCL UDES DIFF/ PLT) red blood cell count 5.08 sampson on/uL 3.80-5 .10 normal Not Available [address], [address], 08/16/2025 07:32:58 08/15/2008/16/2025 CBC (INCL UDES DIFF/ PLT) hemoglobin 12.9 g/dL 11.7-1 5.5 normal Not Available [facility] [address], [address], 08/16/2025 07:32:58 08/15/2008/16/2025 CBC (INCL UDES DIFF/ PLT) hematocrit 42.6 % 35.0-4 5.0 normal Not Available [address], [address], 08/16/2025 07:32:58 08/15/2008/16/2025 CBC (INCL UDES DIFF/ PLT) MCV 83.9 fL 80.0-1 00.0 normal Not Available [address], [address], 08/16/2025 07:32:58 08/15/2008/16/2025 CBC (INCL UDES DIFF/ PLT) MCH 25.4 pg 27.0-3 3.0 low Not Available [address], [address], 08/16/2025 07:32:58 08/15/2008/16/2025 CBC (INCL UDES DIFF/ PLT) MCHC 30.3 g/dL 32.0-3 6.0 low For adult s, a sligh t decre ase in the calcu lated MCHC value (in the range of 30 to 32 g/dL) is most likel y not clini trish signi fican t; sophia er, it shoul d be inter prete d with cauti on in [facility] n with other red cell milagros eters and the patie nt's clini jake condi tion. Not Available [facility] [address], [address], 08/16/2025 07:32:58 08/15/2008/16/2025 CBC (INCL UDES DIFF/ PLT) RDW 13.4 % 11.0-1 5.0 normal Not Available [address], [address], 08/16/2025 07:32:58 08/15/2008/16/2025 CBC (INCL UDES DIFF/ PLT) platelet count 250 thous and/u L 140-40 0 normal Not Available [address], [address], 08/16/2025 07:32:58 08/15/2008/16/2025 CBC (INCL UDES DIFF/ PLT) MPV 12.1 fL 7.5-12 .5 normal Not Available [address], [address], 08/16/2025 07:32:58 08/15/2008/16/2025 CBC (INCL UDES DIFF/ PLT) absolute neutrophils 3648 cells /uL 1500-7 800 normal Not Available [address], [address], 08/16/2025 07:32:58 08/15/2008/16/2025 CBC (INCL UDES DIFF/ PLT) absolute lymphocytes 1884 cells /uL 850-39 00 normal Not Available [address], [address], 08/16/2025 07:32:58 08/15/2008/16/2025 CBC (INCL UDES DIFF/ PLT) absolute monocytes 473 cells /uL 200-95 0 normal Not Available [address], [address], 08/16/2025 07:32:58 08/15/2008/16/2025 CBC (INCL UDES DIFF/ PLT) absolute eosinophils 183 cells /uL 15-500 normal Not Available [address], [address], 08/16/2025 07:32:58 08/15/2008/16/2025 CBC (INCL UDES DIFF/ PLT) absolute basophils 113 cells /uL 0-200 normal Not Available [address], [address], 08/16/2025 07:32:58 08/15/2008/16/2025 CBC (INCL UDES DIFF/ PLT) neutrophils 57.9 % normal Not Available [address], [address], 08/16/2025 07:32:58 08/15/2008/16/2025 CBC (INCL UDES DIFF/ PLT) lymphocytes 29.9 % normal Not Available [address], [address], 08/16/2025 07:32:58 08/15/2008/16/2025 CBC (INCL UDES DIFF/ PLT) monocytes 7.5 % normal Not Available [address], [address], 08/16/2025 07:32:58 08/15/2008/16/2025 CBC (INCL UDES DIFF/ PLT) eosinophils 2.9 % normal Not Available [address], [address], 08/16/2025 07:32:58 08/15/2008/16/2025 CBC (INCL UDES DIFF/ PLT) basophils 1.8 % normal Not Available [address], [address], 08/16/2025 07:32:58 08/15/2008/16/2025 HEMOG LOBIN A1C hemoglobin [...] Curre ntly, no conse nsus exist s myra lopez use of hemog lobin A1c for diagn osis of diabe wenceslao for child jennifer. Not Available [facility] [address], [place], [address], 08/16/2025 07:32:58 03/23/20 24 03/23/2024 RF, upper gastr ointe tello l tract , w/ contr ast PO No observ ation record ed. [address] [place] [address], [address], 08/20/2024 10:15:08 03/23/20 24 03/23/2024 XR, chest , 2 view No observ ation record ed. [address] [id number], [place], [address], 08/20/2024 10:15:07 10/05/20 24 10/05/2024 MAMMO , scree chau, digit al, bilat eral No observ ation record ed. [address] [address], [place], [address], 10/05/2024 17:24:30 Result Notes None recorded. Problems Name Problem SNOMED Code Status Onset Date Resolution Date Notes Provider Name and Address Organization Details Recorded Time Body mass index 25-29 - overweight 643281022 Active 2023 Arlene Ventura MA null, [place] - [facility] 4 10:03:12 Benign essential hypertension 6147858 Active 2023 ARTI Gloria Attn: Daphne alexander,[address] [place], [address], [facility] - [facility] 4 14:53:32 Coronary atherosclerosi s 447427039 Active 2023 ARTI Gloria Attn: Daphne alexander,[address] [place], [address], [place] - [facility] 4 14:53:34 History of placement of stent for coronary artery disease 014850243 Active 2023 ARTI Gloria Attn: Charoisabel alexander,[address] [facility], [place], [address], [place] [facility] 4 14:53:36 Hyperlipidemia 25424801 Active 2023 ARTI Gloria Attn: Charoisabel alexander,[address] [facility], [place], [address], [place] [facility] 4 14:53:37 Blood glucose outside reference range 946468954 Active 2023 ARTI Gloria Attn: Charoisabel alexander,[address] [facility], [place], [address], [place] [facility] 4 14:53:38 Overweight 212583648 Active 2023 ARTI Glroia Attn: Daphne benjamin,[address] [facility], [place], [address], [place] [facility] 4 14:53:40 Long-term drug therapy Active 2023 ARTI Gloria Attn: Daphne benjamin,[address] [facility], [place], [address], [place] [facility] 4 14:53:52 Overweight in adulthood with body mass index of 25 or more but less than 30 471073627 Active 2024 ARTI Gloria Attn: Daphne g,[address] [facility], [place], [address], [place] [facility] 5 23:18:12 Microcytosis 912042460 Active 2024 ARTI Gloria Attn: Daphne g,[address] [place], [address], [place] [facility] 5 13:15:08 Prediabetes 012195588 Active 2024 ARTI Gloria Attn: Daphne alexander,[address] [facility], [place], [address], [facility] 21:52:34 Problem Notes None recorded. Procedures Surgical History Date Name Laterality Status Provider Name and Address Organization Details Recorded Time Back Surgery completed Arlene Ventura MA [facility] 02/19/2024 16:17:20 excision of bilateral fallopian tubes and ovaries completed Arlene Ventura MA [facility] 02/19/2024 16:17:40 Imaging Results None recorded. Procedure [...] Marta ilable Not Available Vitals Date Recorded Body weight Respiratory rate Body mass index (BMI) Body height Oxygen saturation Heart rate Systolic And Diastolic Provider Name and Address Organization Details Last Updated DateTime 4 990[address].0 3 g 20 /min 28.9 kg/m2 157.48 cm 97 % 78 /min 130/82 mm[Hg] Arlene Ventura MA [facility] 12:49:24 Date Recorded Systolic And Diastolic Provider Name and Address Organization Details Last Updated DateTime 02/18/2025 136/78 mm[Hg] ARTI Gloria Attn: Accounting,[address] [place], [address], [facility] 02/18/2025 10:27:13 Date Recorded Body height Body mass index (BMI) Body weight Oxygen saturation Heart rate Respiratory rate Systolic And Diastolic Provider Name and Address Organization Details Last Updated DateTime 5 157.48 cm 27.3 kg/m2 99652.2 6 g 97 % 78 /min 20 /min 132/80 mm[Hg] Arlene Ventura MA [facility] 5 10:06:48 Date Recorded Systolic And Diastolic Provider Name and Address Organization Details Last Updated DateTime 08/20/2024 130/80 mm[Hg] ARTI Gloria Attn: Accounting,[address] [place], [address], [facility] 08/20/2024 10:34:37 Date Recorded Body height Body mass index (BMI) Body weight Respiratory rate Oxygen saturation Heart rate Systolic And Diastolic Provider Name and Address Organization Details Last Updated DateTime 4 157.48 cm 28.7 kg/m2 75118 g 20 /min 97 % 78 /min 136/82 mm[Hg] Arlene Ventura MA [facility] 4 10:05:19 Date Recorded Systolic And Diastolic Provider Name and Address Organization Details Last Updated DateTime 08/29/2025 140/80 mm[Hg] ARTI Gloria Attn: Accounting,[address] [place], [address], [facility] 08/29/2025 10:49:37 Date Recorded Body height Body mass index (BMI) Body weight Respiratory rate Oxygen saturation Heart rate Systolic And Diastolic Provider Name and Address Organization Details Last Updated DateTime 5 157.48 cm 27.6 kg/m2 01945.4 5 g 20 /min 98 % 78 /min 126/78 mm[Hg] Arlene Ventura MA [facility] 5 10:15:59 Social History Question Answer Notes LastModified by Organizat ion Details LastModified Time Tobacco Smoking Status Never Smoker Arlene Ventura MA null, [facility] 02/19/2024 12:46:39 Do You Have An Advance [...] Skin Problems N Anemia N Heart Attack ([place]) N Anxiety Disorder N Diabetes N Muscle, [...] virus, quadrivalent, PF 7 completed Not Available [facility] 08/29/2025 10:07:35 zoster live 7 completed Not Available [facility] 08/29/2025 10:07:35 zoster recombinant 9 completed Not Available [facility] 08/29/2025 10:07:35 zoster recombinant 0 completed Not Available [facility] 08/29/2025 10:07:35 Influenza, recombinant, quadrivalent, PF 0 completed Not Available [facility] 08/29/2025 10:07:35 COVID-19, mRNA, LNP-S, PF, 30 mcg/0.3 mL dose 1 completed Not Available [facility] 08/29/2025 10:07:35 COVID-19, mRNA, LNP-S, PF, 30 mcg/0.3 mL dose 1 completed Not Available [facility] 08/29/2025 10:07:35 Influenza, split virus, quadrivalent, PF 1 completed Not Available [facility] 08/29/2025 10:07:35 COVID-19, mRNA, LNP-S, PF, 30 mcg/0.3 mL dose 1 completed Not Available [facility] 08/29/2025 10:07:35 Influenza, high-dose, quadrivalent, PF 2 completed Not Available [facility] 08/29/2025 10:07:35 Pneumococcal conjugate PCV20, polysaccharide [id number] conjugate, adjuvant, PF 2 completed Not Available [facility] 08/29/2025 10:07:35 Influenza, high-dose, quadrivalent, PF 3 completed Not Available [facility] 08/29/2025 10:07:35 RSV, recombinant, protein subunit RSVpreF, adjuvant reconstituted, 0.5 mL, PF 3 completed Not Available [facility] 08/29/2025 10:07:35 Past Encounters Encounter ID Performer Location Encounter Start Date Encounter Closed Date Diagnosis/Indication Diagnosis SNOMED-CT Code Diagnosis ICD10 Code Diagnosis IMO Codes Diagnosis Note [id number] Uriel Solares MD [facility] [place] [address] [place] [address] 02/19/2024 12:26:48 02/19/2024 13:45:12 Left side sciatica [id number] M54.32 home sciatica exercises given. proceed with MRI lumbar spine for disc evaluation with persisent symptoms. Abnormal breathing 28092 3002 R06.9 screening CXR ordered for difficult y taking deep breaths at times. Indigestion [id number] K3 0 refer for UGI series. Benign par oxysmal positional vertigo 713455903 H81.10 refer for vestibular therapy. Coronary atherosclerosis 020269002 I25.10 stable. asymptomat ic. following with cardiology routinely. History of placement of stent for coronary artery disease 070256574 Z95.5 hx of stent placement. Benign ess ential hypertension 0332010 I10 stable on amlodipine 2.5mg daily and losartan 100mg daily. Hyperlipidemia 16709378 E78.5 stable on rosuvastat in therapy. due for fasting lipids Long-term drug therapy 465361279 Z79.899 routine labs ordered Blood gluc ose outside reference range 950816964 R73.09 a1c due [id number] Uriel Solares MD [facility] [employer] [address] [place] [address] 08/20/2024 09:56:55 08/20/2024 11:00:03 Body mass index 25-29 - overweight 268158753 Z68.28 bmi 28.7 Overweight 774383227 E66 .3 discussed healthy diet, exercise, controllin g carbohydra wenceslao and added sugars in the diet Coronary atherosclerosis 682551522 I25.10 stable. asymptomat ic. following with cardiology annually. Dr. Chavira at [facility]. History of placement of stent for coronary artery disease 881011554 Z95.5 hx of stent placement. Hyperlipidemia 16036323 E78.5 stable on rosuvastat in therapy. repeat fasting labs in january Benign ess ential hypertension 4121373 I10 bp 130/80 today. stable on amlodipine 2.5mg daily and losartan 100mg daily. Long-term drug therapy 022093846 Z79.899 routine labs ordered for january 2025 Blood gluc ose outside reference range 655261713 R73.09 6.2%. continue dietary focus to manage carbs and sugars and exercise. repeat labs in january. Adult heal th examination 698350179 Z00.01 annual wellness completed Hematology screening test 622653735 Z13.0 pt would like to have blood type screening. Screening mammography 24 807021 Z12.31 annual mammogram ordered [id number] Uriel Solares MD [facility] [employer] [address] [place] [address] 02/18/2025 09:51:33 02/18/2025 10:39:26 Benign essential hypertension 8856043 I10 Blood pressure is 136/78 on exam today. stable on amlodipine 2.5mg daily and losartan 100mg daily. Coronary atherosclerosis 837037757 I25.10 stable. asymptomat ic. following with cardiology annually. Dr. Chavira at [facility]. History of placement of stent for coronary artery disease 916059868 Z95.5 hx of stent placement. Hyperlipidemia 46785471 E78.5 stable on rosuvastat in therapy. Labs up-to-date and showed just slightly elevated triglyceri celestine in the 170 range. LDL and HDL in good range repeat fasting lipids again in July Blood gluc ose outside reference range 034905301 R73.09 6.2% A1c. continue dietary focus to manage carbs and sugars and exercise. Repeat lab in July Overweight 934762384 E66 .3 discussed healthy diet, exercise, controllin g carbohydra wenceslao and added sugars in the diet Long-term drug therapy 131065406 Z79.899 Overweight in adulthood with body mass index of 25 or more but less than 30 681520872 Z68.27 573062 bmi 27.3 Microcytosis 173538177 R 71.8 [id number] Patient does have some microcytos is on her lab panel. We are going to check iron studies with another CBC at July labs she is up-to-date on her GI colonoscop y Screening for osteoporosis 412318259 Z13.820 909316 DEXA scan due in August Screening mammography 24 779957 Z12.31 [id number] annual mammogram ordered for September ARTI Gloria [facility] [place] [address] [place] [address] 08/29/2025 10:06:29 08/29/2025 11:06:02 Benign essential hypertension 8750521 I10 stable on amlodipine 2.5mg daily and losartan 100mg daily. Coronary atherosclerosis 383816351 I25.10 stable. asymptomat ic. following with cardiology annually. Dr. Chavira at [facility]. usually late summer History of placement of stent for coronary artery disease 631343026 Z95.5 hx of stent placement. Hyperlipidemia 48815715 E78.5 lipids panel very good ranges. stable on rosuvastat in therapy. repeat fasting labs in january Long-term drug therapy 393630300 Z79.899 routine labs ordered for january 2025 Overweight in adulthood with body mass index of 25 or more but less than 30 962305711 E66.3 Z68.27 [id number] Prediabetes 710821268 R7 3.03 917683 6%. continue dietary focus to manage carbs and sugars and exercise. Adult heal th examination 840708629 Z00.00 3136918 annual wellness completed Health Concerns Section Related Observation LastModified by Organization Detai ls LastModified Time None Recorded Concern Status LastModified by Organization Details LastModified Time None Recorded Advance Directives Directive Y: Payers Insurance Date Sequence Insurance Name Policy Number Policy Whitehead Covered Member ID Whitehead Member ID Guarantor Name 09/20/2025 1 [employer] (MEDICARE REPLACEMENT/ ADVANTAGE - PPO) [id number] Lauren Baldwin [id number] Lauren Baldwin 10/02/2025 PAYMENT PLAN Lauren Baldwin Notes Date Note Type Note Provider Name and Address Organization Details Recorded Time 02/19/2024 text/html Coronary Artery Disease F/UReported by Patientpt is stable and following with cardiology. asymptomatic. HyperlipidemiaRepor concha by Patientstable on rosuvastatin 10mg daily. HypertensionReporte d by Patientstable on amlodipine 2.5mg daily and losartan 100mg daily. . states that when she has been eating lately states that she has to take really deep breaths would like to make sure it isn't acid reflux or has anything to do with her heart. this started a few months ago. also would like to discuss her left sciatica pain. has had this years, just off and on. She had bulging disc hx. some curvature of spine.pt. states that her vertigo has been acting out of whack and she doesn't want to take any otc meds because they make her sleepy; more frequent than it used to be. always positional after laying down. ARTI Gloria Attn: Accounting[address] [place], [address], [facility] - [facility] 02/25/2024 13:59:44 08/20/2024 text/html Coronary Artery Disease F/UReported by Patientpt is stable and following with cardiology. asymptomatic. HyperlipidemiaRepor concha by Patientstable on rosuvastatin 10mg daily. HypertensionReporte d by Patientstable on amlodipine 2.5mg daily and losartan 100mg daily. . prediabetes- pt is managing with diet and exercise. ARTI Gloria Attn: Accounting[address] [facility], [place], [address], [facility] 09/05/2024 14:56:03 02/18/2025 text/html Coronary Artery Disease F/UReported by Patientpt is stable and following with cardiology. asymptomatic. HyperlipidemiaRepor concha by Patientstable on rosuvastatin 10mg daily. HypertensionReporte d by Patientstable on amlodipine 2.5mg daily and losartan 100mg daily. . prediabetes- pt is managing with diet and exercise. 6.2% on recent labs ARTI Gloria Attn: Accounting,[address], [place], [address], [facility] 03/13/2025 13:15:42 08/29/2025 text/html Coronary Artery Disease F/UReported by [...] recent labs ARTI Gloria Attn: Accounting,[address], [place], [address], [facility] - [facility] 09/16/2025 23:18:40 OBGyn Episode No OBEpisode recorded.
--- OUTSIDE RECORDS SUMMARY | 2025-10-11 07:22 | XMS_ITS | Clinical Summary ---
Author Organization [facility] Address [address] [place] [address] Phone Care Team Providers Care Poke In Name Role Phone Irene Dotson Primary Care Provider [phone] Allergies No known active allergies Medications CALCIUM CARBONATE/VITAM IN D3 (CALCIUM + D ORAL) Take by mouth. Activ e LOSARTAN POTASSIUM (LOSARTAN ORAL) Take 100 Tablets by mouth daily. Active valACYclovir (VALTREX) 500 mg tablet 6 Active VITAMIN E ORAL Take by mouth. Active amLODIPine (NORVASC) 2.5 mg tablet Take 2.5 mg by mouth daily. 2 Active aspirin (ECOTRIN EC) 81 mg Tablet, Delayed Release (E.C.) every 24 hours. Acti ve cyanocobalamin (vit B-12) 1,000 mcg tablet Take 1,000 mcg by mouth daily. Active Vit C-Vit T-Szxeth-ZkUk-L utein (PRESERVISION) 226-90-0.8-5 mg Capsule Take 1 Capsule by mouth daily. Active rosuvastatin (Crestor) 20 mg tablet Take 1 Tablet (20 mg) by mouth daily. 90 Tablet 3 2 Active Additional Information Patient taking differently: 10 mgOral DAILY, Reported on 12/18/2022 nitroglycerin (Nitrostat) 0.4 mg Tablet, Sublingual Place 1 Tablet (0.4 mg) under tongue every 5 minutes as needed for Chest Pain. 25 Tablet 11 4 Active Active Problems Patient Care Coordination No te Formatting of this note migh t be different from the original. 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 Benign hypertension 03/05/2014 Overview (06/05/2022): BENIGN HYPERTENSION Family history of ovarian cancer 12/22/2012 Thoracic and lumbosacral neuritis 07/02/2012 Overview (06/05/2022): LUMBOSACRAL NEURITIS NOS Resolved Problems Problem Noted Date Diagnosed Date Resolved Date Abnormal stress test 08/06/2019 022 Accelerating angina 08/06/2019 12/19/19 23 Papanicolaou smear of cervix with atypical squamous cells of undetermined significance (ASC-US) 11/20/2011 12/22/2013 Other and unspecified ovarian cyst 05/31/2010 09/15/2010 Family history of ovarian cancer 05/31/2010 06/10/2010 Immunizations Immunization Administration Dates Next Due (ADACEL/BOOSTRIX)(10 YR UP) TDAP VACCINE, 0.5ML, IM 02/08/2022,05/01/2011 (PFIZER)(12 YR UP) COVID-19 VACCINE - EMERGENCY USE AUTHORIZATION, MRNA, [id number](PF) 30 MCG/0.3 ML IM SUSP 01/27/2021,01/03/2021 (SHINGRIX)(50 YRS UP) ZOSTER VACCINE RECOMBINANT, 0.5 ML, IM 11/26/2019,09/04/2019 INFLUENZA VACCINE QUADRIVALENT 6 MOS UP IM 07/12 INFLUENZA VACCINE QUADRIVALENT 6 MOS UP PF IM ,07/21/2018 INFLUENZA VACCINE QUADRIVALENT RECOMB 18 YR UP P F IM 07/12/2020 Tetanus Toxoid, Unspecified Formulation 10/20/19 11 Zoster Vaccine Live SQ 07/25/2017 Family History Medical History Relation Name Comments Alzheimer's Disease Father Heart Failure Father Hypertension Father Ovarian Cancer Maternal Grandmother Diabetes Mother Heart Failure Mother Hypertension Mother Relation Name Status Comments Father Maternal Grandmother Mother Social History Tobacco Use Types Packs/Day Years Used Date Smoking Tobacco: Never Smokeless Tobacco: Never Tobacco Cessation:Counseling Given: Not Answered Alcohol Use Standard Drinks/Week Comments Yes 0 (1 standard drink = 0.6 oz pur e alcohol) RARE Comments No Sex and Gender Information Value Date Recorded Sex Assigned at Not on file Legal Sex Female 5:53 AM CRM CAMPAIGN MANAGER Gender Identity Not on file Sexual Orientation Not on file Last Filed Vital Signs Vital Sign Reading Time Taken Comments Blood Pressure 128/68 12/23/2024 7:36 AM CRM CAMPAIGN MANAGER Pulse 88 12/23/2024 7:36 AM CRM CAMPAIGN MANAGER Temperature 36.2 C (97.2 F) 08/10/2010 4:35 PM CDT Respiratory Rate 16 08/10/2010 4:35 PM CDT Oxygen Saturation 97% 12/23/2024 7:36 AM CRM CAMPAIGN MANAGER Inhaled Oxygen Concentration - - Weight 70.3 kg (155 lb) 12/23/2024 7:36 AM CRM CAMPAIGN MANAGER Height 162.6 cm (5' 4) 12/23/2024 7:36 AM CRM CAMPAIGN MANAGER Body Mass Index 26.61 12/23/2024 7:36 AM CRM CAMPAIGN MANAGER Plan of Treatment Upcoming Encounters Date Type Department Care Team (Late st Contact Info) Description 12/22/2025 8:00 AM CRM CAMPAIGN MANAGER Office Visit [facility] [address] [place] [address] Michael Chavira MD [address] [facility] [facility] [address] [place] [address] Health Maintenance Due Date Last Done Comments Pre-Diabetes and Diabetes Screening 1956 FIT-DNA Q 3 years 2001 FIT/FOBT Q 1 year 2001 Flex Sig/CT Colonography Q 5 years 2001 PNEUMOCOCCAL VACCINE 50+ YEA RS (1 of 1 - PCV) 2006 RSV VACCINE (60+ or ) (1 - Risk 50-74 years 1-dose series) 2006 BREAST CANCER SCREENING 06/23/2021 06/23/20 20, 03/18/2019, 02/04/2017, Additional history exists OSTEOPOROSIS SCREENING 2021 11/22/2011 INFLUENZA VACCINE (#1) 2025 0, 07/12/2020, 07/27/2019, Additional history exists COVID-19 Vaccine (3 - 2024-2 6 season) 2025 01/27/2021, 01/03/2021 COLORECTAL SCREENING 01/16/2028 01/15/2018, 01/15/2018, 09/09/2012, Additional history exists Colorectal Cancer Screening 01/16/2028 DTAP/TDAP/TD VACCINES (3 - T d or Tdap) 02/09/2032 02/08/2022, 05/01/2011 ZOSTER VACCINE Completed 11/26/2019, 08/20, 07/25/2017 Procedures Procedure Name Priority Date/Time Associated Diagnosis Comments MAMMO 3D ELLIOT SCREEN BILAT W OR WO CAD Routine 06/23/2020 Well woman exam with routine gynecological exam Screening for breast cancer XR DEXA BONE DENSITY AXIAL 1 OR MORE SITES Routine 11/22/2011 3:34 PM CRM CAMPAIGN MANAGER Special screening for osteoporosis from Last 3 Months or Most Recently Relevant to Health Maintenance Results * MAMMO SCRN BILAT 3D ELLIOT W OR WO CAD (06/23/2020) Anatomical Region Laterality Modality Breast Bilateral Mammography us Maricarmen Colunga MD MAMMO ORDERABLES Final Result * XR DEXA BONE DENSITY AXIAL 1 OR MORE SITES (11/22/2011 3:34 PM CRM CAMPAIGN MANAGER) Anatomical Region Laterality Modality Digital Radiogra phy 11/22/2011 3:31 PM CRM CAMPAIGN MANAGER Impressions 11/22/2011 3:42 PM CRM CAMPAIGN MANAGER IMPRESSION: Lumbar spine: This patient's bone mineral density of the spine is normal when compared to the normal range of young adults. The patient is at low risk for a compression fracture. Hips: This patient's bone mineral density of the femoral neck is normal when compared to the normal range of young adults. The patient is at low risk for a hip fracture. Comments: None. Detailed report to follow. Dictated by Dr. Michael Dejesus MD Narrative 11/22/2011 3:42 PM CRM CAMPAIGN MANAGER Examination: Bone Density Study (DEXA) Clinical History: 47 year-old postmenopausal female. Evaluate current bone density. Findings: Lumbar Spine ( L 1-4 ) spine bone mineral density is 1.08 g/sq cm and corresponds to a T-score of -0.9. Femoral neck densities: Left femoral neck bone mineral density is 0.87 g/sq cm and corresponds to a T-score of -0.9. Right femoral neck bone mineral density is 0.87 g/sq cm and corresponds to a T-score of -0.9. Average femoral neck bone mineral density is 0.87 g/sq cm and corresponds to a T-score of -0.9. Procedure Note Michael Dejesus MD - 11/22/2011 Examination: Bone Density Study (DEXA) Clinical History: 47 year-old postmenopausal female. Evaluate current bone density. Findings: Lumbar Spine ( L 1-4 ) spine bone mineral density is 1.08 g/sq cm and corresponds to a T-score of -0.9. Femoral neck densities: Left femoral neck bone mineral density is 0.87 g/sq cm and corresponds to a T-score of -0.9. Right femoral neck bone mineral density is 0.87 g/sq cm and corresponds to a T-score of -0.9. Average femoral neck bone mineral density is 0.87 g/sq cm and corresponds to a T-score of -0.9. IMPRESSION IMPRESSION: Lumbar spine: This patient's bone mineral density of the spine is normal when compared to the normal range of young adults. The patient is at low risk for a compression fracture. Hips: This patient's bone mineral density of the femoral neck is normal when compared to the normal range of young adults. The patient is at low risk for a hip fracture. Comments: None. Detailed report to follow. Dictated by Dr. Michael Dejesus MD Maricarmen Colunga MD DIAGNOSTIC IMAGING ORDERABLES F inal Result from Last 3 Months or Most Recently Relevant to Health Maintenance Insurance [facility] Advance Directives For more information, please contact: [phone] * Full Code (Latest Code Status on File) Date Activated Date Inactivated Comments 08/10/2010 1:26 PM 08/10/2010 8:19 PM * Full Code Date Activated Date Inactivated Comments 08/10/2010 9:17 AM 08/10/2010 1:26 PM * Full Code Date Activated Date Inactivated Comments 07/30/2010 6:06 AM 07/31/2010 2:02 AM Care Teams Poke In Relationship Specialty Start Date End Date Irene Dotson PA PCP - General Physician Machine Sign Writer 03/04/18
--- OUTSIDE RECORDS SUMMARY | 2025-10-11 07:22 | XMS_ITS | Clinical Summary ---
Author Organization [facility] [employer] Address [address] [place] [address] Care Team Providers Care Carpenter Assistant Installer Name Role Phone Unavailable Primary Care Provider Unavailabl e Source Comments [facility],non-owned Affiliates and Associated Physician Practices is amultiple site organization consisting of ambulatory clinics and hospital sitesin [place], [place], [place] and [place]. This disclosure is being madepursuant to the Care Everywhere program and may not contain all information available regarding this patient. Last updated 18.[facility] Social History Tobacco Use Types Packs/Day Years Used Date Smoking Tobacco: Never Assessed Comments Unknown Sex and Gender Information Value Date Recorded Sex Assigned at Not on file Legal Sex Female 3:50 PM CDT Gender Identity Not on file Sexual Orientation Not on file Plan of Treatment Health Maintenance Due Date Last Done Comments BONE DENSITY TESTING 1955 COLOGUARD (AGES 45-75) - COL ON CA SCREENING 1956 COLON MONITORING 1956 COLONOSCOPY - COLON CA SCREENING 1956 CT COLONOGRAPHY - COLON CA SCREENING 1955 Colorectal Cancer Screening 1955 FIT - COLON CA SCREENING 1956 FLEX SIG - COLON CA SCREENING 1956 LIPID TESTING 1955 MAMMOGRAM 1956 HEPATITIS C SCREENING 09/30/1974 DTAP/TDAP/TD VACCINES (1 - Tdap) 1975 PNEUMOCOCCAL VACCINE 50+ (1 of 1 - PCV) 2006 ZOSTER VACCINE (1 of 2) 2006 DEPRESSION SCREENING 10/20/2024 MEDICARE AWV CALENDAR YEAR 2024 COVID-19 VACCINE (1 - 2024-2 6 season) 2025 INFLUENZA VACCINE (#1) 2025 Respiratory Syncytial Virus (RSV) Vaccine Pt: or over 60 yrs (1 - 1-dose 75+ series) 2031 HEPATITIS B VACCINE Aged Out No longe r eligible based on patient's age to complete this topic HIB VACCINE Aged Out No longer eligi ble based on patient's age to complete this topic HPV VACCINE Aged Out No longer eligi ble based on patient's age to complete this topic MENINGOCOCCAL (Group B) VACC INE SHARED DECISION-MAKING Aged Out No longer eligibl e based on patient's age to complete this topic MENINGOCOCCAL GROUPS A/C/Y/W VACCINE Aged Out No longer eligible b ased on patient's age to complete [place] [address] [employer] MEDICARE ADV
== END 2025-10-11 07:18 | disposition home or self-care (01) ==
PROVIDERS: PCP Physician Assistant; Visit Provider Obstetrics & Gynecology
DX: Z12.31 Encounter for screening mammogram for malignant neoplasm of breast (principal)
CPT/HCPCS: 77063; 77067